=== PATIENT | female | born 1935 | race African-American/Black ===

== ENCOUNTER 2017-08-02 21:25 | Inpatient (IN) ==
[2017-08-02] MEDS ORDERED: LEVOFLOXACIN INJ 750 MG in PREMIX 1 EACH IV STA (22:35)
--- NOTE | 2017-08-02 22:35 | Emergency Department Note ---
Arrival - Arrival Chief Complaint: Fever Stated Complaint: AMS, SOB, Fever. ED Nursing Triage Note: C/O Fever/Altered LOC. Onset unknown- family saw pt last around 2200 lastnight- found her covered in feces, unable to get out of bed tonight around 2029- Family states they were unable to get in touch with her today. Pt is normally able to take care of her self without assistance Mode of Arrival: Stretcher Limitations: Altered Mental Status Source: Patient, Family Time Seen by Provider: 08/02/17 22:21 - History of Present Illness HPI Narrative: The family complains of altered mental status and confusion today. They last spoke to her yesterday and she sounded normal. When they were finally able to get in touch with her tonight, they found her incontinent, weak, unable to get out of bed, confused and lethargic. She is usually very active and takes care of herself. She lives alone. The family reports she has had a cough for a few days. No other known recent illness. The patient has a history of CLL and is taking chemotherapy. Her CODE STATUS is DNR. Allergies/Adverse Reactions: Allergies Allergy/AdvReac Type Severity Reaction Status Date / Time Penicillins Allergy ITCHING Verified 08/11/15 15:42 aspirin AdvReac ITCHING Verified 08/11/15 15:42 clarithromycin AdvReac Swelling Verified 08/12/15 09:21 of Lip/Tongue/Throat Home Medications: Home Medications Medication Instructions Recorded Confirmed Type Aspirin [Ecotrin] 81 mg PO DAILY 08/11/15 03/14/16 History Atorvastatin [Lipitor] 80 mg PO DAILY 08/11/15 03/14/16 History Docusate Sodium Cap [Colace Cap] 1 capsule PO DAILY 08/11/15 03/14/16 History Ezetimibe [Zetia] 10 mg PO DAILY 08/11/15 03/14/16 History Famotidine 40 mg PO BEDTIME 08/11/15 03/14/16 History Lisinopril 2.5 mg PO DAILY 08/11/15 03/14/16 History Losartan [Cozaar] 50 mg PO DAILY 08/11/15 03/14/16 History Metoprolol Tartrate Tab [Lopressor 25 mg PO DAILY 08/11/15 03/14/16 History Tab] Multivit-Min36/Iron/Folic Acid 1 each PO DAILY 08/11/15 03/14/16 History [Geritol Complete Tablet] Potassium Chloride [Klor-Con M20] 1 tablet PO DAILY 08/11/15 03/14/16 History Triamterene/Hydrochlorothiazid 1 each PO DAILY 08/11/15 03/14/16 History [Triamterene-Hctz 37.5-25 mg Cp] Review of System - Review of System ROS unobtainable: due to mental status - Review of System Constitutional: Present: fever, weakness Head/Ears/Nose/Throat: Absent: nasal drainage, sore throat Respiratory: Present: cough, respiratory distress Medical,Surgical,& Family Hx - Medical History Cardio: History of: CHF, CAD, Hypertension, Valvular Heart Disease (Mitral valve replacement 11/2013) Endocrine: History of: Dyslipidemia Rheumatology: History of;: Gout Respiratory: History of: Bronchitis, Intubation (11/2013 for MVR) Gastrointestinal: History of: GERD Hematology: History of: Anemia, Hematologic Cancer Other: History of: Cancer (cll taking chemo trtmts) - Surgical History Cardiac Surgeries: Sugical HX of: Cardiac Surgery (ANTONIO-Cx, MARIANA-RCA, SVG-LAD, Porcine 29mm AVR 12/03/2013 Dr. Huang) HEENT Surgeries: Surgical HX of: Tonsilectomy & Adenoidectomy Abdominal Surgeries: Surgical HX of: Appendectomy Reproductive Surgeries: Surgical HX of;: Hysterectomy Orthopedic Surgeries: Surgical HX of;: Total Knee Replacement (RIGHT KNEE) - Family History Family History: Reports;: Family Cancer (mother- pancreatic), Family Heart Disease (mother), Family Hypertension (mother), Family Stroke (mother) - Social History Smoking Status: Former smoker Frequency of Alcohol Use: None Type of Drug Use: None Exam Physical Examination: GENERAL: Alert. No acute distress. HEENT: Normocephalic and atraumatic. There is no nasal drainage. No pharyngeal erythema or exudate. Mucous membranes very dry with some dark material over the soft palate. NECK: Normal inspection. Supple. No lymphadenopathy or meningismus. LUNGS: Patient is tachypneic at 36. There are rales and wheezes bilaterally. HEART: Regular tachycardia at 120. ABDOMEN: Soft, nontender and nondistended with normoactive bowel sounds. BACK: Normal inspection. SKIN: Color normal. Warm and dry. EXTREMITIES: Nontender. Normal range of motion. Mild pitting edema to the lower tibias bilaterally. NEUROLOGICAL/PSYCHIATRIC: A little lethargic but easily arousable, responsive and cooperative. She is disoriented to day but oriented to place and person. She is occasionally confused by a command or question. Cranial nerves normal. No motor or sensory deficit. Vital Signs: Vital Signs Temperature 103.8 F H 08/02/17 21:25 Pulse Rate 129 H 08/02/17 23:14 Respiratory Rate 22 08/02/17 23:14 Blood Pressure 150/54 08/02/17 21:25 O2 Sat by Pulse Oximetry 100 08/02/17 23:14 Course - Reevaluation(s) Reevaluation #1: The patient has remained tachypneic here in the ER. She is still somewhat confused. I have given her Levaquin and am giving her fluids. She appears to be septic with a lactate of 7.3. The chest x-ray shows a pneumonia. She also has a mild urinary tract infection as well. I discussed the patient with Dr. Miller and will admit to him on the floor. They are to call him from the floor and he will give further orders. Time: 00:12 Results - Labs CBC & BMP: 08/02/17 21:42 08/02/17 21:42 Lab Results: I have reviewed the patients labs Labs: Laboratory Tests 08/02/17 08/02/17 21:42 22:13 Lactic Acid 7.3 H Total Bilirubin 1.50 H AST 89 H ALT 68 H Globulin 3.9 H Ur Specific [place] 1.016 Urine Leukocytes Trace Urine RBC 13 Urine WBC 49 Urine Bacteria Moderate - Impressions Chest x-ray shows a right lower lobe pneumonia. Disposition Clinical Impression: Pneumonia, Sepsis, UTI (urinary tract infection), Altered mental status, CLL ( chronic lymphocytic leukemia) Case discussed with: patient, patient's family Disposition: Still a Patient Condition: Guarded Time of Disposition: 00:14
[2017-08-02] MEDS ORDERED: ALBUTEROL/IPRATROPIUM 3 ML NEB RESP TX STA (22:41)
[2017-08-02 22:45] LABS: Basophils # 0.1 10*3/uL (0.0-0.2); Basophils % 0.1 % (0.0-0.8); Hematocrit 39.3 VOL% (35.7-47.0); Hemoglobin 12.4 GM/DL (12.0-16.0); Immature Granulocytes % 1.2 %; Immature Granulocytes Absolute 0.84 #; Lymphocytes # 62.3 10*3/uL (1.4-4.0); Lymphocytes % 90.5 % (21.3-54.2); Mean Corpuscular HGB Conc 31.6 GM/DL (32-36); Mean Corpuscular Hemoglobin 30 PG (27-34); Mean Corpuscular Volume 93.8 FL (87-102); Mean Platelet Volume 13.6 FL (9.6-12.0); Monocytes % 2.9 % (1.7-12.7); Neutrophils # 3.6 10*3/uL (1.4-7.4); Neutrophils % 5.3 % (38.7-73.9); Platelet Count 115 T/CUMM (130-400); Red Blood Count 4.19 MC/CUMM (3.8-5.5); Red Cell Distribution Width 13.6 % (9.3-17.3)
[2017-08-02 22:50] LABS: White Blood Count 68.8 T/CUMM (4-12)
[2017-08-02] MEDS ORDERED: LEVOFLOXACIN INJ 150 ML IV ONE (22:54)
[2017-08-02 22:58] LABS: Albumin 3.5 G/DL (3.4-5.0); Bilirubin,Total 1.5 MG/DL (0.2-1.0); Calcium 9.1 MG/DL (8.5-10.1); Lactic Acid 7.3 MMOL/L (0.4-2.0); Osmolality,Calculated 284.8 MOS/KG (273-304); Potassium 3.8 MMOL/L (3.5-5.1); Total Protein 7.4 G/DL (6.4-8.3)
[2017-08-02 23:26] LABS: Apearance,Urine Slightly Hazy (Clear); Bacteria,Urine Moderate /HPF (Few); Bilirubin,Urine Negative (Negative); Blood, Urine Moderate mg/dL (Negative); Glucose,Urine (UA) Negative (Negative); Ketones,Urine Negative (Negative); Mucus,Urine Occasional /LPF (Occasional); Nitrite,Urine Negative (Negative); Protein,Urine 100 MG/DL; RBC,Urine 13 /HPF (0-4); Urine Color Yellow (Yellow); Urine Specific Gravity 1.016 (1.001-1.035); Urine Urobilinogen < 2.0 EU/DL (0.2-1.0); WBC,Urine 49 /HPF (0-6)
[2017-08-03] MEDS ORDERED: SODIUM CHLORIDE 0.9% 1,000 ML IV STA
[2017-08-03] MEDS ORDERED: SODIUM CHLORIDE 0.9% 3,400 ML IV ONE (00:02)
[2017-08-03] MEDS ORDERED: ACETAMINOPHEN 500 MG TABLET PO STA (00:16)
[2017-08-03] MEDS ORDERED: LINEZOLID INJ 600 MG in PREMIX 1 EACH IV STA (00:36)
[2017-08-03] MEDS ORDERED: ACETAMINOPHEN 500 MG TABLET ONE (00:41)
[2017-08-03] MEDS ORDERED: ACETAMINOPHEN 325 MG/10.15 ML UDCUP ONE (00:55)
[2017-08-03] MEDS ORDERED: ACETAMINOPHEN 160 MG/5 ML UDCUP PO ONE (01:25)
[2017-08-03] MEDS ORDERED: MYLANTA/LIDO VISC 2:1 300 ML BOTTLE SWISH/SPIT PRN (01:48)
[2017-08-03] MEDS ORDERED: chlorproMAZINE 25 MG TABLET PO PRN (01:48)
[2017-08-03] MEDS ORDERED: diphenhydrAMINE CAP 25 MG CAPSULE PO PRN (01:48)
[2017-08-03] MEDS ORDERED: TEMAZEPAM 7.5 MG CAPSULE PO PRN (01:48)
[2017-08-03] MEDS ORDERED: traMADol 50 MG TABLET PO PRN (01:48)
[2017-08-03] MEDS ORDERED: ALUMINUM/MAGNES/SIMETH MAX STR 30 ML UDCUP PO PRN (01:48)
[2017-08-03] MEDS ORDERED: guaiFENesin 200 MG/10 ML UDCUP PO PRN (01:48)
[2017-08-03] MEDS ORDERED: LOPERAMIDE 2 MG CAPSULE PO PRN ×2 (01:48)
[2017-08-03] MEDS ORDERED: ACETAMINOPHEN 325 MG TABLET PO PRN (01:48)
[2017-08-03] MEDS ORDERED: MYLANTA/LIDO VISC 2:1 300 ML BOTTLE SWISH/SWAL PRN (01:48)
[2017-08-03] MEDS ORDERED: BENZTROPINE 2 MG/2 ML AMP IV PRN (01:48)
[2017-08-03] MEDS ORDERED: chlorproMAZINE INJ 25 MG in SODIUM CHLORIDE 0.9% 100 ML IV PRN (01:48)
[2017-08-03] MEDS ORDERED: LACTULOSE 20 GM/30 ML UDCUP PO PRN (01:48)
[2017-08-03] MEDS ORDERED: ONDANSETRON 4 MG/2 ML VIAL IV PRN (01:48)
[2017-08-03] MEDS ORDERED: MAGNESIUM HYDROXIDE SUSP 30 ML UDCUP PO PRN (01:48)
[2017-08-03] MEDS ORDERED: chlorproMAZINE INJ 50 MG in SODIUM CHLORIDE 0.9% 100 ML IV PRN (01:48)
[2017-08-03] MEDS ORDERED: ALPRAZolam 0.25 MG TABLET PO PRN (01:48)
[2017-08-03] MEDS ORDERED: PROMETHAZINE INJ 25 MG in SODIUM CHLORIDE 0.9% 50 ML IV PRN (01:48)
[2017-08-03 02:21] LABS: Basophils # 0.1 10*3/uL (0.0-0.2); Basophils % 0.1 % (0.0-0.8); Hematocrit 34.2 VOL% (35.7-47.0); Hemoglobin 11.2 GM/DL (12.0-16.0); Immature Granulocytes % 0.8 %; Immature Granulocytes Absolute 0.42 #; Lymphocytes # 48.1 10*3/uL (1.4-4.0); Lymphocytes % 91.4 % (21.3-54.2); Mean Corpuscular HGB Conc 32.7 GM/DL (32-36); Mean Corpuscular Hemoglobin 30 PG (27-34); Mean Corpuscular Volume 91.2 FL (87-102); Mean Platelet Volume 12.7 FL (9.6-12.0); Monocytes # 1.5 10*3/uL (0.11-0.8); Monocytes % 2.9 % (1.7-12.7); NRBC # 0.02 10*3/uL; Neutrophils # 2.5 10*3/uL (1.4-7.4); Neutrophils % 4.8 % (38.7-73.9); Platelet Count 100 T/CUMM (130-400); Red Blood Count 3.75 MC/CUMM (3.8-5.5); Red Cell Distribution Width 13.7 % (9.3-17.3)
[2017-08-03 02:24] LABS: White Blood Count 52.6 T/CUMM (4-12)
[2017-08-03 02:53] LABS: Calcium 8.5 MG/DL (8.5-10.1); Osmolality,Calculated 290.7 MOS/KG (273-304); Potassium 3.4 MMOL/L (3.5-5.1)
[2017-08-03 03:46] LABS: Lymphocytes 93 % (20-55); Platelet Estimate Adequate; Segmented Neutrophils 1 % (50-85); Smudge Cells Moderate; Total Cells Counted 100
[2017-08-03 03:53] LABS: Band Neutrophils 1 % (0-10); Lymphocytes 91 % (20-55); Segmented Neutrophils 2 % (50-85); Total Cells Counted 100
[2017-08-03 03:54] LABS: Atypical Lymphocytes Few; Platelet Estimate Adequate; Smudge Cells Moderate
--- NOTE | 2017-08-03 06:31 | XRay Report ---
XR chest 1V portable Indication: Cough and fever Comparison: 15 Mar 2016 Findings: The heart and mediastinum are stable in size and configuration with cardiac surgery changes. The pulmonary vascularity is normal in caliber. There is increased right lower lung density. No other lung infiltrates, effusions, pneumothorax or other abnormality is demonstrated. Impression: Increased right lower lung density, may indicate pneumonia. PROCEDURE INTERPRETED AT [facility] DEPARTMENT OF RADIOLOGY Final Report Signed by: Dr. Ric Sepulveda
--- NOTE | 2017-08-03 06:52 | EKG Report ---
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
--- NOTE | 2017-08-03 07:25 | Oncology History&Physical ---
History of Present Illness Chief complaint: Immunocompromised acute febrile illness History of present illness: Ms. Cyr is a 81 year old female with long-standing chronic lymphocytic leukemia who is admitted with an abrupt change in sensorium and fever and evidence to suggest that she is septic. Ms. Cyr is a 80 year old female who has long-standing chronic lymphocytic leukemia. She was actually initially diagnosed as having CLL in September 2004. It was CD20 positive. She has been treated with several different combinations of treatment. She's had Rituxan and bendamustine in the past and she is currently on Ibrutinib has been responding well to it. She went out to eat with her daughter earlier this week and had been doing well but when they had not heard from her for about 24 hours they went over to check on her and found her to be confused and prostrate. She has had serious infections in the past including one that produced lactic acidosis. She is immunocompromised by her chronic lymphocytic leukemia. Previous diagnoses have included #1: Acute metabolic acidosis with lactic acidosis secondary to acute gastroenteritis in combination with chemotherapy for chronic lymphocytic leukemia #2: Severe life-threatening hyperuricemia of greater than 20.0 on admission #3: Hypotensive crisis due to metabolic acidosis with shock #4 3/4: Hypoxemia due to metabolic acidosis and congestive heart failure #5: Chronic lymphocytic leukemia #6: Acute renal failure #7: Severe thrombocytopenia #8: Anemia #10: Artificial mitral valve #11: Coronary artery disease post-CABG #12: Haemophilus influenza septicemia Past medical history: Allergies: Penicillins, aspirin and clarithromycin. Degenerative arthritis GERD Artificial aortic valve Coronary artery disease Hypertension Congestive heart failure Myocardial infarct Renal failure Family history: Positive for stroke and hypertension in her mother. Social history: She does not use alcohol or tobacco. She actually used alcohol at one time but does not use it anymore. ROS Gen.: Eyes: Positive for excessive tearing no history of chronic disease, infections or visual loss. ENT: Positive for nasal congestion, nasal drainage, rhinitis, sneezing and snoring. No history of chronic infections, epistaxis, chronic sore throat Lungs: No history of asthma, emphysema, hemoptysis, chronic pleurisy or long- term or chronic infections Cardiovascular: Positive for edema and varicose veins. She also has a history of an artificial aortic valve replacement. No history of angina, coronary artery disease, congestive heart failure, cardiovascular surgery or DVT/VTE GI: Positive for hemorrhoids. No history of upper or lower GI bleeding, melena , dysphagia, odynophagia, liver disease, gallbladder disease or pancreatic disease. : No history of kidney stones, chronic kidney infections or hematuria. Musculoskeletal: Positive for arthritis, mainly degenerative arthritis but there may be a component of rheumatoid arthritis Neurologic: No history of seizures, convulsions or paralysis. Psychiatric: No history of chronic psychiatric illness or psychiatric medications. Lymphatic: No history of significant or long-term lymphadenopathy Hematologic: Positive for anemia and at times positive for neutropenia. Skin: Positive for hair loss. No history of chronic skin infections or rashes or significant skin lesions. Physical examination: General: The patient is acutely ill and lethargic. Eyes: Normal lids and conjunctivae. ENT: She is edentulous. Oral mucosa and pharynx are normal. Her trachea is midline. Her hearing appears normal. Lungs: She has scattered rales throughout both lung lucia and is tachypnea. There is no chest wall pain. Cardiovascular: Her heart rhythm is regular without gallop or rub. There is no jugular venous distention, clubbing or cyanosis. She has a harsh grade 4/6 holosystolic murmur heard best at the right upper sternal border. There is no clubbing or cyanosis. Abdomen: I palpate no abdominal masses, ascites or organomegaly. Musculoskeletal: She has degenerative arthritic changes of the hands. She has generalized muscle weakness. Neurologic: She has no focal neurologic deficit she is clearly very lethargic. Psychiatric: She is not completely oriented presently. She is acutely ill. Nodes: Although she has had extensive adenopathy in the past, I palpate no submandibular, cervical, supraclavicular or axillary adenopathy presently. Skin: No significant rashes or lesions. Impression: Sepsis in an immunocompromised patient: Long-standing chronic lymphocytic leukemia: Artificial aortic valve: Chronic and acute renal failure: History of thrombocytopenia: Bronchospasm and apparent pneumonia on this admission. See my orders. Home Medications Medication Instructions Recorded Confirmed Type Aspirin [Ecotrin] 81 mg PO DAILY 08/11/15 08/03/17 History Docusate Sodium Cap [Colace Cap] 1 capsule PO DAILY 08/11/15 08/03/17 History Ezetimibe [Zetia] 10 mg PO DAILY 08/11/15 08/03/17 History Losartan [Cozaar] 50 mg PO DAILY 08/11/15 08/03/17 History Metoprolol Tartrate Tab [Lopressor 25 mg PO DAILY 08/11/15 08/03/17 History Tab] Potassium Chloride [Klor-Con M20] 1 tablet PO DAILY 08/11/15 08/03/17 History Bumetanide Tab [Bumex Tab] 1 mg PO DAILY 08/03/17 08/03/17 History Fexofenadine/Pseudoephedrine 1 each PO DAILY 08/03/17 08/03/17 History [Aminta-D 24 Hour Tablet] Ibrutinib [Imbruvica] 140 mg PO DAILY 08/03/17 08/03/17 History Magnesium Chloride [Slow Mag] 64 mg PO DAILY 08/03/17 08/03/17 History Multivit-Min36/Iron/Folic Acid 1 tablet PO DAILY 08/03/17 08/03/17 History [Geritol Complete Tablet] Allergies Allergy/AdvReac Type Severity Reaction Status Date / Time Penicillins Allergy ITCHING Verified 08/11/15 15:42 aspirin AdvReac ITCHING Verified 08/11/15 15:42 clarithromycin AdvReac Swelling Verified 08/12/15 09:21 of Lip/Tongue/Throat Medical,Surgical,& Family Hx - Medical History Cardio: History of: CHF, CAD, Hypertension, Valvular Heart Disease (Mitral valve replacement 11/2013) Endocrine: History of: Dyslipidemia Rheumatology: History of;: Gout Respiratory: History of: Bronchitis, Intubation (11/2013 for MVR) Gastrointestinal: History of: GERD Hematology: History of: Anemia, Hematologic Cancer Other: History of: Cancer (cll taking chemo trtmts) - Surgical History Cardiac Surgeries: Sugical HX of: Cardiac Surgery (ANTONIO-Cx, MARIANA-RCA, SVG-LAD, Porcine 29mm AVR 12/03/2013 Dr. Huang) HEENT Surgeries: Surgical HX of: Tonsilectomy & Adenoidectomy Abdominal Surgeries: Surgical HX of: Appendectomy Reproductive Surgeries: Surgical HX of;: Hysterectomy Orthopedic Surgeries: Surgical HX of;: Total Knee Replacement (RIGHT KNEE) - Family History Family History: Reports;: Family Cancer (mother- pancreatic), Family Heart Disease (mother), Family Hypertension (mother), Family Stroke (mother) - Social History Smoking Status: Former smoker Frequency of Alcohol Use: None Type of Drug Use: None Exam - Constitutional Vitals: Period Temp Pulse Resp BP Sys/Gray Pulse Ox Last 24 Hr 96.8 F-103.8 F 120-132 20-36 108-150/54-54 95-100 Results - Labs CBC & BMP: 08/04/17 08:33 08/04/17 08:33
[2017-08-03 08:43] LABS: Total Protein 5.7 G/DL (6.4-8.3)
--- NOTE | 2017-08-03 08:57 | Pulmonology Consult Note ---
Assessment and Plan (1) Altered mental status Status: Acute Assessment and plan: The patient comes in with delirium related to her new pneumonia and fever and is likely septic. Current Visit: Yes (2) Pneumonia Status: Acute Assessment and plan: The patient does have an acute right lower lobe pneumonia. She is somewhat immunosuppressed and will be covered with broad-spectrum antibiotics. Current Visit: Yes (3) Sepsis Status: Acute Assessment and plan: The patient comes in with sepsis and has gotten a large volume of fluid. We will have to watch for volume overload. Current Visit: Yes (4) CLL (chronic lymphocytic leukemia) Status: Chronic Assessment and plan: Patient has been getting chronic treatment for her CLL. Current Visit: Yes (5) Renal insufficiency Status: Acute Assessment and plan: Her creatinine is 2.2 at present. Current Visit: No (6) S/P AVR (aortic valve replacement) Status: Chronic Assessment and plan: The patient has had previous aortic valve replacement. Current Visit: No (7) S/P MVR (mitral valve replacement) Status: Chronic Assessment and plan: Patient has had a previous mitral valve replacement. Current Visit: No History of Present Illness Chief complaint: Shortness of breath History of present illness: Ms. Cyr is a 81 year old black female that has a long history of CLL but is been quite active and been doing reasonably well until this past week. She started having a little bit of cough and congestion and yesterday apparently she was very confused and had a high fever. She came in with basically delirium and was very short of breath. She now has a right lower lobe pneumonia. She was felt to be somewhat septic and has been started on fluids and antibiotics. She is quite tachypneic and little confused. She has chronically been on treatment for CLL. She has had an aortic valve replacement. She apparently has had some loose stools also. She has adequate oxygenation at present but is having a temperature to 102.8. Home Medications Medication Instructions Recorded Confirmed Type Aspirin [Ecotrin] 81 mg PO DAILY 08/11/15 08/03/17 History Docusate Sodium Cap [Colace Cap] 1 capsule PO DAILY 08/11/15 08/03/17 History Ezetimibe [Zetia] 10 mg PO DAILY 08/11/15 08/03/17 History Losartan [Cozaar] 50 mg PO DAILY 08/11/15 08/03/17 History Metoprolol Tartrate Tab [Lopressor 25 mg PO DAILY 08/11/15 08/03/17 History Tab] Potassium Chloride [Klor-Con M20] 1 tablet PO DAILY 08/11/15 08/03/17 History Bumetanide Tab [Bumex Tab] 1 mg PO DAILY 08/03/17 08/03/17 History Fexofenadine/Pseudoephedrine 1 each PO DAILY 08/03/17 08/03/17 History [Aminta-D 24 Hour Tablet] Ibrutinib [Imbruvica] 140 mg PO DAILY 08/03/17 08/03/17 History Magnesium Chloride [Slow Mag] 64 mg PO DAILY 08/03/17 08/03/17 History Multivit-Min36/Iron/Folic Acid 1 tablet PO DAILY 08/03/17 08/03/17 History [Geritol Complete Tablet] Allergies Allergy/AdvReac Type Severity Reaction Status Date / Time Penicillins Allergy ITCHING Verified 08/11/15 15:42 aspirin AdvReac ITCHING Verified 08/11/15 15:42 clarithromycin AdvReac Swelling Verified 08/12/15 09:21 of Lip/Tongue/Throat - Constitutional Constitutional: Present: chills, fever(s), weakness - EENT Eyes: Absent: loss of vision Ears: Absent: decreased hearing Nose, mouth and throat: Absent: headache(s), sinus pressure - Cardiovascular Cardiovascular: Present: dyspnea. Absent: chest pain at rest - Respiratory Respiratory: Present: cough, dyspnea, change in phlegm color - Gastrointestinal Gastrointestinal: Present: diarrhea - Genitourinary Genitourinary: Absent: difficulty urinating, hematuria - Neurological Neurological: Present: confusion Exam (Pulmonay) H&P - Constitutional Vitals: Period Temp Pulse Resp BP Sys/Gray Pulse Ox Last 24 Hr 96.8 F-103.8 F 120-132 20-36 108-150/54-54 95-100 General appearance: mild distress, over weight, other (She is tachypneic but has stable vital signs.) - Head Head exam: Present: normal inspection, normocephalic - Eye Eye exam: Present: EOMI. Absent: scleral icterus Pupils: Present: [place] - ENT ENT exam: Present: normal exam - Neck Neck exam: Absent: lymphadenopathy, thyromegaly - Respiratory Respiratory exam: Present: accessory muscle use, rales, other (She has good breath sounds bilaterally). Absent: wheezes - Cardiovascular Cardiovascular exam: Present: regular rate and rhythm, tachycardia. Absent: gallop, systolic murmur - GI/Abdominal GI/Abdominal exam: Present: soft. Absent: distended, organomegaly, tenderness - Extremities Exam Extremities exam: Absent: calf tenderness, edema - Neurological Exam Neurological exam: Present: altered (She is somewhat confused now.) - Psychiatric Psychiatric exam: Present: normal affect - Skin Skin exam: Present: warm, dry Medical,Surgical,& Family Hx - Medical History Cardio: History of: CHF, CAD, Hypertension, Valvular Heart Disease (Mitral valve replacement 11/2013) Endocrine: History of: Dyslipidemia Rheumatology: History of;: Gout Respiratory: History of: Bronchitis, Intubation (11/2013 for MVR) Gastrointestinal: History of: GERD Hematology: History of: Anemia, Hematologic Cancer Other: History of: Cancer (cll taking chemo trtmts) - Surgical History Cardiac Surgeries: Sugical HX of: Cardiac Surgery (ANTONIO-Cx, MARIANA-RCA, SVG-LAD, Porcine 29mm AVR 12/03/2013 Dr. Huang) HEENT Surgeries: Surgical HX of: Tonsilectomy & Adenoidectomy Abdominal Surgeries: Surgical HX of: Appendectomy Reproductive Surgeries: Surgical HX of;: Hysterectomy Orthopedic Surgeries: Surgical HX of;: Total Knee Replacement (RIGHT KNEE) - Family History Family History: Reports;: Family Cancer (mother- pancreatic), Family Heart Disease (mother), Family Hypertension (mother), Family Stroke (mother) - Social History Smoking Status: Former smoker Frequency of Alcohol Use: None Type of Drug Use: None Results - Labs CBC & BMP: 08/03/17 02:09 08/03/17 02:09 - Diagnostic Findings Procedure: Chest x-ray: image reviewed by me, report reviewed by me (Chest x- ray shows cardiomegaly but does have a right lower lobe consolidation.)
[2017-08-03] MEDS: methylPREDNISolone SOD SUC 40 MG/1 ML VIAL IV SCH ×2 (09:05→17:57)
[2017-08-03] MEDS: LEVOFLOXACIN INJ 750 MG in PREMIX 1 EACH IV SCH (09:35)
[2017-08-03 10:33] LABS: Immunoglobulin A (Chem) 56 MG/DL (70-400); Immunoglobulin G (Chem) 326 MG/DL (700-1600); Total Protein (Chem) 5.7 G/DL (6.4-8.3)
[2017-08-03 10:34] LABS: Immunoglobulin M (Chem) 65 MG/DL (40-230)
[2017-08-03] MEDS: LINEZOLID INJ 600 MG in PREMIX 1 EACH IV SCH (11:34)
[2017-08-03] MEDS: DOCUSATE SODIUM 100 MG CAPSULE PO SCH (11:38)
[2017-08-03] MEDS: ASPIRIN EC 81 MG TABLET PO SCH (11:38)
[2017-08-03] MEDS: EZETIMIBE 10 MG TABLET PO SCH (11:39)
[2017-08-03] MEDS: ZINC OXIDE PASTE 113 GM TUBE TOP SCH ×2 (11:39→22:28)
[2017-08-03] MEDS: MAGNESIUM CHLORIDE 64 MG TABLET PO SCH (11:39)
[2017-08-03] MEDS: METOPROLOL TARTRATE 25 MG TABLET PO SCH (11:39)
[2017-08-03] MEDS: POTASSIUM CHLORIDE 20 MEQ TABLET PO SCH (11:39)
[2017-08-03] MEDS: ALBUTEROL 1.25 MG/3 ML NEB RESP TX SCH ×2 (13:02→20:02)
[2017-08-03] MEDS: SODIUM CHLORIDE 0.9% 1,000 ML IV SCH ×2 (15:03→20:29)
[2017-08-04] MEDS: LINEZOLID INJ 600 MG in PREMIX 1 EACH IV SCH ×2 (00:37→11:32)
[2017-08-04] MEDS: ALBUTEROL 1.25 MG/3 ML NEB RESP TX SCH ×4 (01:54→20:25)
[2017-08-04] MEDS: methylPREDNISolone SOD SUC 40 MG/1 ML VIAL IV SCH ×3 (02:32→16:42)
[2017-08-04 06:18] LABS: Immuno Free Light Chain Kappa 1.13 MG/DL (0.33-1.94); Immuno Free Light Chain Lambda 1.57 MG/DL (0.57-2.63); Immuno Free Light Chain Ratio 0.72 MG/DL (0.26-1.65)
[2017-08-04 06:50] LABS: Albumin (SPE) 3.7 G/DL (3.2-5.3); Albumin (SPE) Rel % 65.1 %; Alpha 1 (SPE) 0.3 G/DL (0.1-0.4); Alpha 2 (SPE) 0.7 G/DL (0.4-1.0); Alpha 2 (SPE) Rel % 12.4 %; Beta (SPE) 0.7 G/DL (0.5-1.1); Beta (SPE) Rel % 11.6 %; Gamma (SPE) 0.3 G/DL (0.7-1.7)
[2017-08-04 06:52] LABS: Gamma (SPE) Rel % 5.9 %
--- NOTE | 2017-08-04 07:45 | XRay Report ---
Exam: XR chest 1V portable Date: 08/04/2017 4:00 AM Indication: Pneumonia Comparison: August 02, 2017 Technical: AP Findings: Cardiomegaly is present previous sternotomy and valve replacement surgery. Low volume effusions atelectatic changes are present bilaterally right greater than left. No pneumothorax. A necklace Superimposes exam. Impression: 1. Persistent bibasilar infiltrates atelectatic change and effusions with underlying cardiomegaly and previous sternotomy and valve replacement surgery. Overall slight worsening of findings in the right base PROCEDURE INTERPRETED AT [facility] DEPARTMENT OF RADIOLOGY Final Report Signed by: Dr. Esequiel Quevedo
--- NOTE | 2017-08-04 08:27 | Oncology Progress Note ---
Oncology Subjective PN Interval history: Patient with CLL and gram-positive septicemia. She has been afebrile since yesterday morning around 9 AM. She is on Zyvox and Levaquin. I will plan to continue both medications today and consider whether or not to continue both medications once we have the final identification of the bacteria back. She is only Imbruvica which we will resume today. Lab work today includes a white cell count of 28,200 with an absolute neutrophil count of 2100. Her hemoglobin is 9.8. Her platelet count is 66, 000. The chemistry package is still pending and I may adjust her fluids and other medicines accordingly. Today she is far more alert and oriented and animated and she appears to be improving now. She is on IV fluids as well as IV antibiotics. She has additives and her IV fluids require monitoring as well. See my orders. Her oral mucosa and pharynx are normal. Her trachea is midline and she has no neck masses. Lungs are clear without rubs, rales or rhonchi. Her heart rhythm is regular without murmur, gallop or rub. She has short-term memory loss but otherwise is oriented. Exam - Constitutional Vitals: Period Temp Pulse Resp BP Sys/Gray Pulse Ox Last 24 Hr 97.2 F-102.8 F 104-140 17-32 94-145/50-67 92-99 Results - Labs CBC & BMP: 08/04/17 08:33 08/03/17 02:09
[2017-08-04 09:13] LABS: Basophils % 0.1 % (0.0-0.8); Hematocrit 30.5 VOL% (35.7-47.0); Hemoglobin 9.8 GM/DL (12.0-16.0); Immature Granulocytes % 0.5 %; Immature Granulocytes Absolute 0.14 #; Lymphocytes # 25.4 10*3/uL (1.4-4.0); Lymphocytes % 89.9 % (21.3-54.2); Mean Corpuscular HGB Conc 32.1 GM/DL (32-36); Mean Corpuscular Hemoglobin 30 PG (27-34); Mean Corpuscular Volume 92.4 FL (87-102); Mean Platelet Volume 13.6 FL (9.6-12.0); Monocytes # 0.6 10*3/uL (0.11-0.8); Neutrophils # 2.1 10*3/uL (1.4-7.4); Neutrophils % 7.5 % (38.7-73.9); White Blood Count 28.2 T/CUMM (4-12)
[2017-08-04 09:16] LABS: Platelet Count 66 T/CUMM (130-400)
[2017-08-04 09:40] LABS: Albumin 2.5 G/DL (3.4-5.0); Bilirubin,Total 1.2 MG/DL (0.2-1.0); Calcium 8.2 MG/DL (8.5-10.1); Magnesium 2.1 MG/DL (1.8-2.4); Osmolality,Calculated 299.3 MOS/KG (273-304); Potassium 3.8 MMOL/L (3.5-5.1)
[2017-08-04 09:55] LABS: Lymphocytes 94 % (20-55); Segmented Neutrophils 5 % (50-85); Total Cells Counted 100
[2017-08-04 09:56] LABS: Atypical Lymphocytes Few; Microcytosis Slight
[2017-08-04 09:57] LABS: Burr Cells Slight
[2017-08-04 09:58] LABS: Hypochromasia Slight; Platelet Estimate Decreased
[2017-08-04] MEDS: POTASSIUM CHLORIDE 20 MEQ TABLET PO SCH (10:11)
[2017-08-04] MEDS: FEXOFENADINE 180 MG TABLET PO SCH (10:12)
[2017-08-04] MEDS: METOPROLOL TARTRATE 25 MG TABLET PO SCH (10:12)
[2017-08-04] MEDS: BUMETANIDE 1 MG TABLET PO SCH (10:12)
[2017-08-04] MEDS: MULTIVITAMIN (CENTRUM) TABLET PO SCH (10:12)
[2017-08-04] MEDS: EZETIMIBE 10 MG TABLET PO SCH (10:12)
[2017-08-04] MEDS: MAGNESIUM CHLORIDE 64 MG TABLET PO SCH (10:12)
[2017-08-04] MEDS: ASPIRIN EC 81 MG TABLET PO SCH (10:12)
[2017-08-04] MEDS: LOSARTAN 50 MG TABLET PO SCH (10:12)
[2017-08-04] MEDS: DOCUSATE SODIUM 100 MG CAPSULE PO SCH (10:12)
[2017-08-04] MEDS: IMBRUVICA 140 MG PO SCH (10:14)
[2017-08-04] MEDS: DEXT 5% NACL 0.45% KCL 20 MEQ 20 MEQ/1,000 ML BAG IV SCH ×2 (10:15→21:17)
[2017-08-04] MEDS: ZINC OXIDE PASTE 113 GM TUBE TOP SCH ×2 (10:17→21:18)
[2017-08-04] MEDS: SODIUM CHLORIDE 0.9% 1,000 ML IV SCH (10:21)
--- NOTE | 2017-08-04 16:11 | Pulmonology Progress Note ---
Pulmonary - PN: Subj Interval history: The patient is an 81-year-old black lady with CLL she comes in with a septic picture and right lower lobe pneumonia. She has been given antibiotics and fluids and is much better today. She is more alert and conversant. She feels like her breathing and her chest feels better. She is eating a little better today. She does have positive blood cultures is getting covered with broad- spectrum antibiotics. Her renal function is better with a creatinine of 1.9. Exam (Progress Note) - Constitutional Vitals: Period Temp Pulse Resp BP Sys/Gray Pulse Ox Last 24 Hr 97.2 F-98.9 F 89-127 17-20 97-123/51-59 94-99 Exam: General appearance: mild distress, over weight, other (She is much more comfortable and less tachypneic today.) - Head Head exam: Present: normal inspection, normocephalic - Eye Eye exam: Present: EOMI. Absent: scleral icterus Pupils: Present: [place] - ENT ENT exam: Present: normal exam - Neck Neck exam: Absent: lymphadenopathy, thyromegaly - Respiratory Respiratory exam: Present: Patient has good breath sounds with some slight crackles in the bases. - Cardiovascular Cardiovascular exam: Present: regular rate and rhythm, tachycardia. Absent: gallop, systolic murmur - GI/Abdominal GI/Abdominal exam: Present: soft. Absent: distended, organomegaly, tenderness - Extremities Exam Extremities exam: Absent: calf tenderness, edema, no leg tenderness. - Neurological Exam Neurological exam: Present: altered (She is much more alert.) - Psychiatric Psychiatric exam: Present: normal affect - Skin Skin exam: Present: warm, dry Results - Labs CBC & BMP: 08/04/17 08:33 08/04/17 08:33 Labs: Blood cultures have gram-positive cocci. - Diagnostic Findings Procedure: Chest x-ray: image reviewed by me, report reviewed by me (Chest x- ray still shows some right lower lobe consolidation.) Assessment and Plan (1) Altered mental status Status: Acute Assessment and plan: The patient comes in with delirium related to her new pneumonia and fever and is likely septic. She does have positive blood cultures. She is doing much better today. Current Visit: Yes (2) Pneumonia Status: Acute Assessment and plan: The patient does have an acute right lower lobe pneumonia. She is somewhat immunosuppressed and will be covered with broad-spectrum antibiotics. Current Visit: Yes (3) Sepsis Status: Acute Assessment and plan: The patient comes in with sepsis and has gotten a large volume of fluid. She looks better today and appears to be hemodynamically stable. Current Visit: Yes (4) CLL (chronic lymphocytic leukemia) Status: Chronic Assessment and plan: Patient has been getting chronic treatment for her CLL. Current Visit: Yes (5) Renal insufficiency Status: Acute Assessment and plan: Her creatinine is 1.9 now . Current Visit: No (6) S/P AVR (aortic valve replacement) Status: Chronic Assessment and plan: The patient has had previous aortic valve replacement. Current Visit: No (7) S/P MVR (mitral valve replacement) Status: Chronic Assessment and plan: Patient has had a previous mitral valve replacement. Will watch for heart failure. Current Visit: No
[2017-08-05] MEDS: LINEZOLID INJ 600 MG in PREMIX 1 EACH IV SCH ×2 (00:12→11:59)
[2017-08-05] MEDS: ALBUTEROL 1.25 MG/3 ML NEB RESP TX SCH ×4 (01:31→20:11)
[2017-08-05] MEDS: methylPREDNISolone SOD SUC 40 MG/1 ML VIAL IV SCH ×3 (01:42→20:54)
[2017-08-05 04:58] LABS: Basophils % 0.1 % (0.0-0.8); Hematocrit 27.8 VOL% (35.7-47.0); Hemoglobin 8.7 GM/DL (12.0-16.0); Immature Granulocytes % 0.9 %; Immature Granulocytes Absolute 0.28 #; Lymphocytes # 27.4 10*3/uL (1.4-4.0); Lymphocytes % 90.7 % (21.3-54.2); Mean Corpuscular HGB Conc 31.3 GM/DL (32-36); Mean Corpuscular Hemoglobin 29 PG (27-34); Mean Platelet Volume 13.4 FL (9.6-12.0); Monocytes # 0.5 10*3/uL (0.11-0.8); Monocytes % 1.6 % (1.7-12.7); Neutrophils % 6.7 % (38.7-73.9); Red Blood Count 2.99 MC/CUMM (3.8-5.5); Red Cell Distribution Width 14.2 % (9.3-17.3); White Blood Count 30.2 T/CUMM (4-12)
[2017-08-05 05:10] LABS: Platelet Count 62 T/CUMM (130-400)
[2017-08-05 05:33] LABS: Albumin 2.4 G/DL (3.4-5.0); Bilirubin,Total 1.5 MG/DL (0.2-1.0); Calcium 7.8 MG/DL (8.5-10.1); Osmolality,Calculated 301.4 MOS/KG (273-304); Potassium 4.3 MMOL/L (3.5-5.1); Total Protein 4.7 G/DL (6.4-8.3)
[2017-08-05 06:20] LABS: Atypical Lymphocytes Few; Burr Cells Slight; Giant Platelets Few; Hypochromasia Slight; Lymphocytes 97 % (20-55); Microcytosis Slight; Platelet Estimate Decreased; Segmented Neutrophils 3 % (50-85); Smudge Cells Few; Total Cells Counted 100
[2017-08-05] MEDS: DEXT 5% NACL 0.45% KCL 20 MEQ 20 MEQ/1,000 ML BAG IV SCH (07:32)
[2017-08-05] MEDS: POTASSIUM CHLORIDE 20 MEQ TABLET PO SCH (09:00)
[2017-08-05] MEDS: IMBRUVICA 140 MG PO SCH (09:02)
[2017-08-05] MEDS: PSEUDOEPHEDRINE 30 MG TABLET PO SCH ×3 (09:04→21:24)
[2017-08-05] MEDS: BUMETANIDE 1 MG TABLET PO SCH (09:04)
[2017-08-05] MEDS: EZETIMIBE 10 MG TABLET PO SCH (09:05)
[2017-08-05] MEDS: DOCUSATE SODIUM 100 MG CAPSULE PO SCH (09:05)
[2017-08-05] MEDS: ASPIRIN EC 81 MG TABLET PO SCH (09:05)
[2017-08-05] MEDS: MAGNESIUM CHLORIDE 64 MG TABLET PO SCH (09:06)
[2017-08-05] MEDS: FEXOFENADINE 180 MG TABLET PO SCH (09:06)
[2017-08-05] MEDS: MULTIVITAMIN (CENTRUM) TABLET PO SCH (09:07)
--- NOTE | 2017-08-05 09:07 | Oncology Progress Note ---
Oncology Subjective PN Interval history: Gram-positive septicemia Ms. Cyr is an immunosuppressed patient admitted with gram-positive septicemia and history of chronic lymphocytic leukemia currently off IV medications but she is still on Imbruvica for her leukemia. She has been responding well. She was found unresponsive in her home and brought to the hospital. This is at least the second time this has happened. She is improving now and is oriented and alert. Blood cultures are positive for gram-positive cocci but they have not been identified any further at this time.Urine cultures positive for gram-negative rods. However, colony count is only 5000. Chronic lymphocytic leukemia: White cell count 30,200 with absolute neutrophil count of 2000 Anemia: Hemoglobin 8.7 Thrombocytopenia: Platelet count 62,000. She is on Zyvox which can worsen thrombocytopenia so I will be watching this closely. Chronic renal failure Serum creatinine is down to 1.7 Exam - Constitutional Vitals: Period Temp Pulse Resp BP Sys/Gray Pulse Ox Last 24 Hr 96.4 F-98.9 F 75-98 17-20 94-124/49-63 96-100 Results - Labs CBC & BMP: 08/05/17 03:19 08/05/17 03:19
[2017-08-05] MEDS: ZINC OXIDE PASTE 113 GM TUBE TOP SCH ×2 (09:10→22:22)
[2017-08-05] MEDS: LEVOFLOXACIN INJ 750 MG in PREMIX 1 EACH IV SCH (10:44)
[2017-08-05] MEDS: METOPROLOL TARTRATE 25 MG TABLET PO SCH (12:54)
[2017-08-05] MEDS: LOSARTAN 50 MG TABLET PO SCH (12:54)
--- NOTE | 2017-08-05 13:01 | Pulmonology Progress Note ---
Pulmonary - PN: Subj Interval history: The patient is an 81-year-old black lady with CLL she comes in with a septic picture and right lower lobe pneumonia. She has been given antibiotics and fluids and is much better today. She is more alert and conversant. She feels like her breathing and her chest feels better. She is eating a little better today. She does have positive blood cultures is getting covered with broad- spectrum antibiotics. She says she had a very good night and is feeling much better. She is getting around a little better. She is not short of breath now. She is not having any fever. She is eating and drinking well. Overall she is feeling much better. Exam (Progress Note) - Constitutional Vitals: Period Temp Pulse Resp BP Sys/Gray Pulse Ox Last 24 Hr 96.4 F-98.9 F 75-98 17-20 94-124/49-63 96-100 Exam: General appearance: no distress, over weight, other (She is much more comfortable and less tachypneic today. She is ambulating better.) - Head Head exam: Present: normal inspection, normocephalic - Eye Eye exam: Present: EOMI. Absent: scleral icterus Pupils: Present: [place] - ENT ENT exam: Present: normal exam - Neck Neck exam: Absent: lymphadenopathy, thyromegaly - Respiratory Respiratory exam: Present: Patient has good breath sounds with some slight crackles in the bases. She has no wheezing. - Cardiovascular Cardiovascular exam: Present: regular rate and rhythm, tachycardia. Absent: gallop, systolic murmur - GI/Abdominal GI/Abdominal exam: Present: soft. Absent: distended, organomegaly, tenderness - Extremities Exam Extremities exam: Absent: calf tenderness, edema, no leg tenderness. - Neurological Exam Neurological exam: Present: altered (She is much more alert.) - Psychiatric Psychiatric exam: Present: normal affect - Skin Skin exam: Present: warm, dry Results - Labs CBC & BMP: 08/05/17 03:19 08/05/17 03:19 Assessment and Plan (1) Altered mental status Status: Acute Assessment and plan: The patient comes in with delirium related to her new pneumonia and fever and is likely septic. She does have positive blood cultures. She is doing much better today. Her mental status is back to normal. Current Visit: Yes (2) Pneumonia Status: Acute Assessment and plan: The patient does have an acute right lower lobe pneumonia. She is somewhat immunosuppressed and will be covered with broad-spectrum antibiotics. Clinically she looks like she is doing better. Current Visit: Yes (3) Sepsis Status: Acute Assessment and plan: The patient comes in with sepsis and has gotten a large volume of fluid. She looks better today and appears to be hemodynamically stable. Current Visit: Yes (4) CLL (chronic lymphocytic leukemia) Status: Chronic Assessment and plan: Patient has been getting chronic treatment for her CLL. Current Visit: Yes (5) Renal insufficiency Status: Acute Assessment and plan: Her creatinine is 1.7 now . Current Visit: No (6) S/P AVR (aortic valve replacement) Status: Chronic Assessment and plan: The patient has had previous aortic valve replacement. Current Visit: No (7) S/P MVR (mitral valve replacement) Status: Chronic Assessment and plan: Patient has had a previous mitral valve replacement. Will watch for heart failure. I will stop her IV fluids now. Current Visit: No
[2017-08-06] MEDS: ALBUTEROL 1.25 MG/3 ML NEB RESP TX SCH ×4 (00:47→19:07)
[2017-08-06] MEDS: methylPREDNISolone SOD SUC 40 MG/1 ML VIAL IV SCH ×2 (01:09→10:27)
[2017-08-06] MEDS: PSEUDOEPHEDRINE 30 MG TABLET PO SCH ×4 (04:18→21:59)
[2017-08-06 05:36] LABS: Basophils # 0.1 10*3/uL (0.0-0.2); Basophils % 0.1 % (0.0-0.8); Hematocrit 29.1 VOL% (35.7-47.0); Hemoglobin 9.2 GM/DL (12.0-16.0); Immature Granulocytes Absolute 0.37 #; Lymphocytes # 32.8 10*3/uL (1.4-4.0); Lymphocytes % 92.8 % (21.3-54.2); Mean Corpuscular HGB Conc 31.6 GM/DL (32-36); Mean Corpuscular Hemoglobin 29 PG (27-34); Mean Platelet Volume 14.1 FL (9.6-12.0); Monocytes # 0.4 10*3/uL (0.11-0.8); Monocytes % 1.2 % (1.7-12.7); NRBC # 0.02 10*3/uL; Neutrophils # 1.7 10*3/uL (1.4-7.4); Neutrophils % 4.9 % (38.7-73.9); Platelet Count 67 T/CUMM (130-400); Red Blood Count 3.13 MC/CUMM (3.8-5.5); Red Cell Distribution Width 14.5 % (9.3-17.3); White Blood Count 35.3 T/CUMM (4-12)
[2017-08-06 06:11] LABS: Atypical Lymphocytes Few; Hypochromasia Slight; Lymphocytes 98 % (20-55); Microcytosis Slight; Platelet Estimate Decreased; Segmented Neutrophils 2 % (50-85); Smudge Cells Few; Total Cells Counted 100
[2017-08-06 06:12] LABS: Giant Platelets Few
[2017-08-06 06:21] LABS: Albumin 2.4 G/DL (3.4-5.0); Bilirubin,Total 0.9 MG/DL (0.2-1.0); Calcium 8.3 MG/DL (8.5-10.1); Osmolality,Calculated 299.4 MOS/KG (273-304); Potassium 4.6 MMOL/L (3.5-5.1); Total Protein 4.9 G/DL (6.4-8.3)
--- NOTE | 2017-08-06 09:26 | Oncology Progress Note ---
Oncology Subjective PN Interval history: Gram-positive septicemia Ms. Cyr is an immunosuppressed patient admitted with gram-positive septicemia and history of chronic lymphocytic leukemia currently off IV medications but she is still on Imbruvica for her leukemia. She has been responding well. She was found unresponsive in her home and brought to the hospital. This is at least the second time this has happened. She is improving now and is oriented and alert.Blood cultures were reported back as being positive several days ago but the identification of the bacteria was not placed on the chart until the afternoon August 06, 2017. The patient has Streptococcus pneumoniae on 2 blood cultures. It is broadly sensitive. She also has Acinetobacter on urine culture but the colony count is very low. White cell count 30,200 with absolute neutrophil count of 2000 Anemia: Hemoglobin 9.2 today. Thrombocytopenia: Platelet count 67,000 and rising. We discontinued Zyvox yesterday. Chronic renal failure Serum creatinine is 1.4 and falling Exam - Constitutional Vitals: Period Temp Pulse Resp BP Sys/Gray Pulse Ox Last 24 Hr 97 F-98.3 F 51-100 16-20 105-136/55-66 96-99 Results - Labs CBC & BMP: 08/06/17 04:39 08/06/17 04:40
[2017-08-06] MEDS: BUMETANIDE 1 MG TABLET PO SCH (09:42)
[2017-08-06] MEDS: LOSARTAN 50 MG TABLET PO SCH (09:42)
[2017-08-06] MEDS: METOPROLOL TARTRATE 25 MG TABLET PO SCH (09:43)
[2017-08-06] MEDS: EZETIMIBE 10 MG TABLET PO SCH (09:43)
[2017-08-06] MEDS: ASPIRIN EC 81 MG TABLET PO SCH (09:44)
[2017-08-06] MEDS: FEXOFENADINE 180 MG TABLET PO SCH (09:44)
[2017-08-06] MEDS: MULTIVITAMIN (CENTRUM) TABLET PO SCH (09:45)
[2017-08-06] MEDS: POTASSIUM CHLORIDE 20 MEQ TABLET PO SCH (09:47)
[2017-08-06] MEDS: MAGNESIUM CHLORIDE 64 MG TABLET PO SCH (09:48)
[2017-08-06] MEDS: IMBRUVICA 140 MG PO SCH (09:49)
[2017-08-06] MEDS ORDERED: LEVOFLOXACIN INJ 750 MG in PREMIX 1 EACH IV SCH (10:00)
[2017-08-06] MEDS: DOCUSATE SODIUM 100 MG CAPSULE PO SCH (10:24)
[2017-08-06] MEDS: ZINC OXIDE PASTE 113 GM TUBE TOP SCH ×2 (10:24→22:07)
--- NOTE | 2017-08-06 11:29 | Pulmonology Progress Note ---
Pulmonary - PN: Subj Interval history: The patient is an 81-year-old black lady with CLL she comes in with a septic picture and right lower lobe pneumonia. She has been given antibiotics and fluids and is much better today. She is up and moving around and looks much better. She says she is eating and feels stronger. Her shortness of breath is much better. She did have a Streptococcus pneumoniae grow out on blood cultures. She is getting antibiotics. Clinically she is much improved. Exam (Progress Note) - Constitutional Vitals: Period Temp Pulse Resp BP Sys/Gray Pulse Ox Last 24 Hr 97 F-98.3 F 51-100 16-20 105-136/55-66 96-99 Exam: General appearance: no distress, over weight, other (She is moving around today and looks much more comfortable) - Head Head exam: Present: normal inspection, normocephalic - Eye Eye exam: Present: EOMI. Absent: scleral icterus Pupils: Present: [place] - ENT ENT exam: Present: normal exam - Neck Neck exam: Absent: lymphadenopathy, thyromegaly - Respiratory Respiratory exam: Present: Patient has good breath sounds with some slight crackles in the bases. She has no wheezing. She is moving air well now. - Cardiovascular Cardiovascular exam: Present: regular rate and rhythm. Absent: gallop, systolic murmur - GI/Abdominal GI/Abdominal exam: Present: soft. Absent: distended, organomegaly, tenderness - Extremities Exam Extremities exam: Absent: calf tenderness, edema, no leg tenderness. - Neurological Exam Neurological exam: Present: altered (She is much more alert. She is getting around much better.) - Psychiatric Psychiatric exam: Present: normal affect - Skin Skin exam: Present: warm, dry Results - Labs CBC & BMP: 08/06/17 04:39 08/06/17 04:40 Assessment and Plan (1) Altered mental status Status: Acute Assessment and plan: The patient came in with sepsis and delirium and is doing much better now. She will continue antibiotic therapy. Current Visit: Yes (2) Pneumonia Status: Acute Assessment and plan: The patient does have an acute right lower lobe pneumonia. She has pneumococcus growing in her blood cultures. She is responding nicely to antibiotics. Current Visit: Yes Qualifiers: Pneumonia type: due to Pneumococcus (3) Sepsis Status: Acute Assessment and plan: The patient comes in with sepsis and has gotten a large volume of fluid. She looks better today and appears to be hemodynamically stable. Overall she is much improved. Current Visit: Yes Qualifiers: Sepsis type: Pneumococcus Qualified Code(s): A40.3 - Sepsis due to Streptococcus pneumoniae (4) CLL (chronic lymphocytic leukemia) Status: Chronic Assessment and plan: Patient has been getting chronic treatment for her CLL. Current Visit: Yes (5) Renal insufficiency Status: Acute Assessment and plan: Her creatinine is 1.4 now . Current Visit: No (6) S/P AVR (aortic valve replacement) Status: Chronic Assessment and plan: The patient has had previous aortic valve replacement. Current Visit: No (7) S/P MVR (mitral valve replacement) Status: Chronic Assessment and plan: Patient has had a previous mitral valve replacement. Will watch for heart failure. I will stop her IV fluids now. Current Visit: No
[2017-08-07] MEDS: ALBUTEROL 1.25 MG/3 ML NEB RESP TX SCH ×2 (01:01→07:40)
[2017-08-07] MEDS: PSEUDOEPHEDRINE 30 MG TABLET PO SCH ×2 (05:13→08:40)
[2017-08-07 06:56] LABS: Basophils % 0.1 % (0.0-0.8); Hematocrit 29.8 VOL% (35.7-47.0); Hemoglobin 9.4 GM/DL (12.0-16.0); Immature Granulocytes % 2.1 %; Immature Granulocytes Absolute 1.09 #; Lymphocytes # 48.3 10*3/uL (1.4-4.0); Lymphocytes % 93.1 % (21.3-54.2); Mean Corpuscular HGB Conc 31.5 GM/DL (32-36); Mean Corpuscular Hemoglobin 30 PG (27-34); Mean Corpuscular Volume 93.4 FL (87-102); Mean Platelet Volume 13.6 FL (9.6-12.0); Monocytes # 0.9 10*3/uL (0.11-0.8); Monocytes % 1.7 % (1.7-12.7); Neutrophils # 1.6 10*3/uL (1.4-7.4); Red Blood Count 3.19 MC/CUMM (3.8-5.5); Red Cell Distribution Width 14.2 % (9.3-17.3)
[2017-08-07 06:58] LABS: White Blood Count 51.9 T/CUMM (4-12)
[2017-08-07 06:59] LABS: Albumin 2.5 G/DL (3.4-5.0); Osmolality,Calculated 294.3 MOS/KG (273-304); Potassium 4.6 MMOL/L (3.5-5.1); Total Protein 4.8 G/DL (6.4-8.3)
[2017-08-07 06:59] LABS: Platelet Count 74 T/CUMM (130-400)
[2017-08-07 07:10] LABS: Band Neutrophils 2 % (0-10); Hypochromasia Slight; Lymphocytes 95 % (20-55); Nucleated Red Blood Cells 1 (0-5); Promyelocytes 1 %; Segmented Neutrophils 2 % (50-85); Smudge Cells Moderate; Total Cells Counted 100
[2017-08-07 07:11] LABS: Platelet Estimate Decreased
--- NOTE | 2017-08-07 08:16 | Oncology Progress Note ---
Oncology Subjective PN Interval history: Ms. Cyr is a 81 year old female with long-standing chronic lymphocytic leukemia who is admitted with an abrupt change in sensorium and fever and evidence to suggest that she is septic. Ms. Cyr is a 80 year old female who has long-standing chronic lymphocytic leukemia. She was actually initially diagnosed as having CLL in September 2004. It was CD20 positive. She has been treated with several different combinations of treatment. She's had Rituxan and bendamustine in the past and she is currently on Ibrutinib has been responding well to it. She went out to eat with her daughter earlier this week and had been doing well but when they had not heard from her for about 24 hours they went over to check on her and found her to be confused and prostrate. She has had serious infections in the past including one that produced lactic acidosis. She is immunocompromised by her chronic lymphocytic leukemia. 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 Cyr is an immunosuppressed patient admitted with gram-positive septicemia and history of chronic lymphocytic leukemia currently off IV medications but she is still on Imbruvica for her leukemia. She has been responding well. She was found unresponsive in her home and brought to the hospital. This is at least the second time this has happened. She is improving now and is oriented and alert.Blood cultures were reported back as being positive several days ago but the identification of the bacteria was not placed on the chart until the afternoon August 06, 2017. The patient has Streptococcus pneumoniae on 2 blood cultures. It is broadly sensitive. She also has Acinetobacter on urine culture but the colony count is very low. Anemia: Hemoglobin 9.4 today. Thrombocytopenia: Platelet count 74,000 and rising. We discontinued Zyvox yesterday. Chronic renal failure Serum creatinine is 1.4 and stable. CLL:White cell count 51,900. All immunoglobulins are low with an IgG of 326, an IgA of 56 and actually her IgM is normal at 65. [place] free light chains are normal. Complement values are normal including a C3 of 134.0 with a C4 of 30.9 and a CH 50 of 57. She has significantly improved. She has an appointment to see me August 13. I am discharging her today to continue Levaquin 750 mg p.o. daily for 7 more days. The Streptococcus pneumoniae that caused her sepsis is sensitive to it. Exam - Constitutional Vitals: Period Temp Pulse Resp BP Sys/Gray Pulse Ox Last 24 Hr 96.6 F-98.6 F 66-87 16-20 111-130/56-63 95-99 Results - Labs CBC & BMP: 08/07/17 06:05 08/07/17 06:08
[2017-08-07] MEDS: POTASSIUM CHLORIDE 20 MEQ TABLET PO SCH (08:40)
[2017-08-07] MEDS: METOPROLOL TARTRATE 25 MG TABLET PO SCH (08:40)
[2017-08-07] MEDS: DOCUSATE SODIUM 100 MG CAPSULE PO SCH (08:40)
[2017-08-07] MEDS: LOSARTAN 50 MG TABLET PO SCH (08:40)
[2017-08-07] MEDS: BUMETANIDE 1 MG TABLET PO SCH (08:40)
[2017-08-07] MEDS: ASPIRIN EC 81 MG TABLET PO SCH (08:40)
[2017-08-07] MEDS: MAGNESIUM CHLORIDE 64 MG TABLET PO SCH (08:40)
[2017-08-07] MEDS: FEXOFENADINE 180 MG TABLET PO SCH (08:40)
[2017-08-07] MEDS: EZETIMIBE 10 MG TABLET PO SCH (08:40)
[2017-08-07] MEDS: ZINC OXIDE PASTE 113 GM TUBE TOP SCH (08:40)
[2017-08-07] MEDS: MULTIVITAMIN (CENTRUM) TABLET PO SCH (08:40)
[2017-08-07] MEDS: IMBRUVICA 140 MG PO SCH (08:41)
[2017-08-07] MEDS ORDERED: LEVOFLOXACIN 750 MG TABLET PO SCH (09:00)
--- NOTE | 2017-08-07 09:05 | Discharge Summary ---
Hospital Course - Hospital Course Hospital Course: Ms. Cyr is a 81 year old female with long-standing chronic lymphocytic leukemia who is admitted with an abrupt change in sensorium and fever and evidence to suggest that she is septic. Ms. Cyr is a 80 year old female who has long-standing chronic lymphocytic leukemia. She was actually initially diagnosed as having CLL in September 2004. It was CD20 positive. She has been treated with several different combinations of treatment. She's had Rituxan and bendamustine in the past and she is currently on Ibrutinib has been responding well to it. She went out to eat with her daughter earlier this week and had been doing well but when they had not heard from her for about 24 hours they went over to check on her and found her to be confused and prostrate. She has had serious infections in the past including one that produced lactic acidosis. She is immunocompromised by her chronic lymphocytic leukemia. 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 Cyr is an immunosuppressed patient admitted with gram-positive septicemia and history of chronic lymphocytic leukemia currently off IV medications but she is still on Imbruvica for her leukemia. She has been responding well. She was found unresponsive in her home and brought to the hospital. This is at least the second time this has happened. She is improving now and is oriented and alert.Blood cultures were reported back as being positive several days ago but the identification of the bacteria was not placed on the chart until the afternoon August 06, 2017. The patient has Streptococcus pneumoniae on 2 blood cultures. It is broadly sensitive. She also has Acinetobacter on urine culture but the colony count is very low. Anemia: Hemoglobin 9.4 today. Thrombocytopenia: Platelet count 74,000 and rising. We discontinued Zyvox yesterday. Chronic renal failure Serum creatinine is 1.4 and stable. CLL:White cell count 51,900. All immunoglobulins are low with an IgG of 326, an IgA of 56 and actually her IgM is normal at 65. [place] free light chains are normal. Complement values are normal including a C3 of 134.0 with a C4 of 30.9 and a CH 50 of 57. She has significantly improved. She has an appointment to see me August 13. I am discharging her today to continue Levaquin 750 mg p.o. daily for 7 more days. The Streptococcus pneumoniae that caused her sepsis is sensitive to it. Discharge Plan - Discharge Data Disposition: Disch To Home/Self Care Condition at Discharge: Guarded Discharge Diet: advance to your usual diet Activity: resume usual activities as tolerated Hygiene: no restrictions Weight Bearing at Discharge: weight bear as tolerated Driving: other Contact your physician if you experience:: fever over 101, Difficulty voiding, Redness or swelling, Nausea/Vomiting, Shortness of breath, Bleeding, pain uncontrolled by pain medications - Discharge Medications Continue Aspirin [Ecotrin] 81 mg PO DAILY Docusate Sodium Cap [Colace Cap] 1 capsule PO DAILY Losartan [Cozaar] 50 mg PO DAILY Ezetimibe [Zetia] 10 mg PO DAILY Potassium Chloride [Klor-Con M20] 1 tablet PO DAILY Metoprolol Tartrate Tab [Lopressor Tab] 25 mg PO DAILY Magnesium Chloride [Slow Mag] 64 mg PO DAILY Bumetanide Tab [Bumex Tab] 1 mg PO DAILY Multivit-Min36/Iron/Folic Acid [Geritol Complete Tablet] 1 tablet PO DAILY Fexofenadine/Pseudoephedrine [Aminta-D 24 Hour Tablet] 1 each PO DAILY Ibrutinib [Imbruvica] 140 mg PO DAILY - Follow Up or Referral - Forms/Instructions Additional Discharge Instructions: Give the patient prescription I have written for Levaquin 750 mg with 7 tablets dispensed to take 1 daily for 7 days. It has 1 refill. Instructed her to keep the current appointment that she has to see me during 13 August. Exam - Constitutional Vitals: Period Temp Pulse Resp BP Sys/Gray Pulse Ox Last 24 Hr 96.6 F-98.6 F 66-87 16-20 111-130/56-63 95-99 Discharge Results Procedures and tests throughout hospitalization: Pending Orders 08/04/17 11:42 Sputum Culture and Gram Stain Stat 08/08/17 04:00 Comp Blood Count Auto Diff IN AM Comprehensive Metabolic Panel IN AM LDH [Lactate Dehydrogenase] IN AM 08/09/17 04:00 Comp Blood Count Auto Diff IN AM Comprehensive Metabolic Panel IN AM LDH [Lactate Dehydrogenase] IN AM 08/10/17 04:00 Comp Blood Count Auto Diff IN AM Comprehensive Metabolic Panel IN AM Labs on day of discharge: Labs from last 24 hours 08/07/17 08/07/17 06:08 06:05 WBC 51.9 H* D RBC 3.19 L Hgb 9.4 L Hct 29.8 L MCV 93.4 MCH 30 MCHC 31.5 L RDW 14.2 Plt Count 74 L MPV 13.6 H Neut % (Auto) 3.0 L Lymph % (Auto) 93.1 H [place] % (Auto) 1.7 Eos % (Auto) 0.0 Baso % (Auto) 0.1 Neut # (Auto) 1.6 Lymph # (Auto) 48.3 H [place] # (Auto) 0.9 H Eos # (Auto) 0.0 Baso # (Auto) 0.0 Total Counted 100 Immature Gran % 2.1 Nucleated RBC % 0.0 Immature Gran # 1.09 Segmented Neutrophils 2 L Band Neutrophils 2 Lymphocytes 95 H Promyelocytes 1 Nucleated RBCs 1 Nucleated RBCs # 0.00 Smudge Cells Moderate Platelet Estimate Decreased Immature Plt Fraction 16.0 H Hypochromasia Slight Sodium 141 Potassium 4.6 Chloride 108 H Carbon Dioxide 26 Anion Gap 11.6 BUN 49 H Creatinine 1.40 H GFR Calculation 45 BUN/Creatinine Ratio 35.00 H Glucose 119 H Calculated Osmolality 294.3 Calcium 9.0 Total Bilirubin 1.00 AST 18 ALT 29 Alkaline Phosphatase 46 Lactate Dehydrogenase 322 H Total Protein 4.8 L Albumin 2.5 L Globulin 2.3 Albumin/Globulin Ratio 1.0 L DS: Provider Date of admission: 08/03/17 00:16 Primary care physician: . No PCP Attending physician on admission: Darrell Miller MD Consults: 08/03/17 08:25 Consult to Physician [CONS] Routine Comment: CLL, Pnemonia Consulting Provider: Kris Weston Consulting Provider Notified: Yes When should Consulting Provider be notified: Now Consult to Specialist Group: Pulmonology When should Consulting Provider be notified: Now Person Notified: JESSE Date Notified: 08/03/17 Time Notified: 10:20 Discharging clinician: Darrell Miller MD
[2017-08-07 11:49] VITALS: BP 127/61
--- NOTE | 2017-08-07 12:55 | Pulmonology Progress Note ---
Pulmonary - PN: Subj Interval history: The patient is an 81-year-old black lady with CLL she comes in with a septic picture and right lower lobe pneumonia. She has been given antibiotics and fluids and is much better today. She had pneumococcus growing in her blood. She has been tolerating the antibiotics and she looks much better now. She is not short of breath now and doing more activity. Her fever is down and she feels like going home later today. Exam (Progress Note) - Constitutional Vitals: Period Temp Pulse Resp BP Sys/Gray Pulse Ox Last 24 Hr 96.6 F-98.6 F 66-92 16-20 111-130/56-62 93-99 Exam: General appearance: no distress, over weight, other (She is moving around today and looks much more comfortable. She is not having any respiratory distress now.) - Head Head exam: Present: normal inspection, normocephalic - Eye Eye exam: Present: EOMI. Absent: scleral icterus Pupils: Present: [place] - ENT ENT exam: Present: normal exam - Neck Neck exam: Absent: lymphadenopathy, thyromegaly - Respiratory Respiratory exam: Present: Patient has good breath sounds with some slight crackles in the bases. She has no wheezing. She is moving air well now. - Cardiovascular Cardiovascular exam: Present: regular rate and rhythm. Absent: gallop, systolic murmur - GI/Abdominal GI/Abdominal exam: Present: soft. Absent: distended, organomegaly, tenderness - Extremities Exam Extremities exam: Absent: calf tenderness, edema, no leg tenderness. - Neurological Exam Neurological exam: Present: altered (She is much more alert. She is getting around much better.) - Psychiatric Psychiatric exam: Present: normal affect - Skin Skin exam: Present: warm, dry Results - Labs CBC & BMP: 08/07/17 06:05 08/07/17 06:08 Assessment and Plan (1) Altered mental status Status: Acute Assessment and plan: The patient came in with sepsis and delirium and is doing much better now. She will continue antibiotic therapy. She is back to her baseline now. (2) Pneumonia Status: Acute Assessment and plan: The patient does have an acute right lower lobe pneumonia. She has pneumococcus growing in her blood cultures. She is responding nicely to antibiotics. She will go home on oral antibiotics. Qualifiers: Pneumonia type: due to Pneumococcus (3) Sepsis Status: Acute Assessment and plan: The patient comes in with sepsis and has gotten a large volume of fluid. She looks better today and appears to be hemodynamically stable. Overall she is much improved. She appears to be back to baseline now. Qualifiers: Sepsis type: Pneumococcus Qualified Code(s): A40.3 - Sepsis due to Streptococcus pneumoniae (4) CLL (chronic lymphocytic leukemia) Status: Chronic Assessment and plan: Patient has been getting chronic treatment for her CLL. (5) Renal insufficiency Status: Acute Assessment and plan: Her creatinine is 1.4 now . This may be her baseline now. (6) S/P AVR (aortic valve replacement) Status: Chronic Assessment and plan: The patient has had previous aortic valve replacement. (7) S/P MVR (mitral valve replacement) Status: Chronic Assessment and plan: Patient has had a previous mitral valve replacement. She has no signs of heart failure now. Specialty Discharge - Follow Up or Referrals
--- NOTE | 2017-08-07 13:29 | Physician Query Form ---
CLICK EDIT DOCUMENT TO SELECT QUERY ANSWER --> OK --> SIGN Aracelis Perkins RN Clinical Director Of Software Development W) [phone] (f) [phone] [email or web address] PROVIDERS: Make your selection(s) from the choices in EACH section by typing an "x" and enter comments in the comment section. Please use your independent medical judgment in providing your response. This request does not imply that any particular answer is desired or expected. CLINICAL INDICATORS: (Providers should not edit this section) Pt. admitted with acute sepsis. Based on documentation of "Hypotensive crisis due to metabolic acidosis with shock", Hxpp=874.8, Lwyhx=236, Respirations=36, WBC=68.8, Lactic acid=7.3, Creatinine=2.40. Bp=94/49. Pt. treated with IV Zyvox and IV fluids. Please clarify which, if any, of the following is the etiology of the above symptoms and treatment rendered: ( ) Sepsis due to a localized infection, please specify infection: ( ) Severe Sepsis (sepsis with acute organ failure) - Please specify type acute organ failure: ( ) Septic Shock (severe sepsis with hypotension) ( ) Other condition, please specify: ( x) Clinically unable to determine Criteria for Sepsis (SIRS due to an infection) should be based on 2 or more of the following being present: Temperature > 101F or < 96.8F WBC > 12,000 or < 4,000, or > 10% bands Tachycardia HR > 90 beats/minute Tachypnea RR > 20 breaths/minute or PaCO2 > 32mmHg Lactate level > 2.0 mmol/L (>4 is equivalent to severe sepsis) Altered Mental Status Mottling of skin or prolonged capillary refill Non-diabetic hyperglycemia (blood sugar >120 mg/dl) Other evidence of acute organ failure associated with sepsis ( severe sepsis) COMMENTS: PLEASE ALSO DOCUMENT RESPONSE IN PROGRESS NOTES AND/OR DISCHARGE SUMMARY Use of terms such as suspected, likely, or probable (associated with a specific diagnosis that is being evaluated, monitored, or treated as if it exists) are acceptable and can be restated in the discharge summary if not ruled out. MTDD
== END 2017-08-07 12:34 | disposition home or self-care (01) | DRG 871 ==
LOC: EDUNIT# → EDBD → N.ED 21:25 → N.4E 08-03 00:16
PROVIDERS: ADMIT Specialist; ATTEND Specialist

== ENCOUNTER 2018-03-24 12:41 | Inpatient (IN) ==
[2018-03-24] MEDS ORDERED: LEVOFLOXACIN INJ 500 MG in PREMIX 1 EACH IV STA (13:13)
[2018-03-24 13:30] LABS: Basophils # 0.1 10*3/uL (0.0-0.2); Basophils % 0.2 % (0.0-0.8); Hematocrit 41.2 VOL% (35.7-47.0); Hemoglobin 13.2 GM/DL (12.0-16.0); Lymphocytes # 28.1 10*3/uL (1.4-4.0); Lymphocytes % 95.9 % (21.3-54.2); Mean Corpuscular Hemoglobin 30 PG (27-34); Mean Platelet Volume 12.9 FL (9.6-12.0); Monocytes # 1.1 10*3/uL (0.11-0.8); Monocytes % 3.8 % (1.7-12.7); Neutrophils % 0.1 % (38.7-73.9); Platelet Count 157 T/CUMM (130-400); Red Blood Count 4.48 MC/CUMM (3.8-5.5); Red Cell Distribution Width 13.5 % (9.3-17.3); White Blood Count 29.3 T/CUMM (4-12)
[2018-03-24 13:53] LABS: Albumin 4.2 G/DL (3.4-5.0); Bilirubin,Total 0.9 MG/DL (0.2-1.0); Calcium 9.9 MG/DL (8.5-10.1); Osmolality,Calculated 278.1 MOS/KG (273-304); Potassium 4.4 MMOL/L (3.5-5.1); Total Protein 8.4 G/DL (6.4-8.3)
[2018-03-24 13:54] LABS: Lymphocytes 99 % (20-55); Ovalocytes Slight; Platelet Estimate Adequate; Poikilocytosis Slight; Segmented Neutrophils 1 % (50-85); Smudge Cells 1+; Tear Drop Cells Slight; Total Cells Counted 100
[2018-03-24 14:01] LABS: Apearance,Urine CLEAR (Clear); Bacteria,Urine Moderate /HPF (Few); Bilirubin,Urine Negative (Negative); Blood, Urine Small mg/dL (Negative); Glucose,Urine (UA) Negative (Negative); Ketones,Urine Negative (Negative); Mucus,Urine Occasional /LPF (Occasional); Nitrite,Urine Negative (Negative); Protein,Urine 100 MG/DL; RBC,Urine 2 /HPF (0-4); Urine Color Yellow (Yellow); Urine Specific Gravity 1.014 (1.001-1.035); Urine Urobilinogen < 2.0 EU/DL (0.2-1.0)
[2018-03-24] MEDS ORDERED: ONDANSETRON 4 MG/2 ML VIAL IV PRN (14:24)
[2018-03-24] MEDS ORDERED: LACTULOSE 20 GM/30 ML UDCUP PO PRN (14:24)
[2018-03-24] MEDS ORDERED: ALUMINUM/MAGNES/SIMETH MAX STR 30 ML UDCUP PO PRN (14:24)
[2018-03-24] MEDS ORDERED: TEMAZEPAM 7.5 MG CAPSULE PO PRN (14:24)
[2018-03-24] MEDS ORDERED: guaiFENesin 200 MG/10 ML UDCUP PO PRN (14:24)
[2018-03-24] MEDS ORDERED: LOPERAMIDE 2 MG CAPSULE PO PRN ×2 (14:24)
[2018-03-24] MEDS ORDERED: MAGNESIUM HYDROXIDE SUSP 30 ML UDCUP PO PRN (14:24)
[2018-03-24] MEDS ORDERED: ACETAMINOPHEN 325 MG TABLET PO PRN (14:24)
[2018-03-24] MEDS ORDERED: diphenhydrAMINE CAP 25 MG CAPSULE PO PRN (14:24)
[2018-03-24] MEDS: SODIUM CHLORIDE 0.9% 1,000 ML IV SCH (19:00)
[2018-03-24] MEDS: CLINDAMYCIN INJ 300 MG in PREMIX 1 EACH IV SCH (19:02)
[2018-03-24] MEDS ORDERED: LEVOFLOXACIN INJ 750 MG in PREMIX 1 EACH IV SCH (20:00)
[2018-03-24] MEDS ORDERED: LEVOFLOXACIN INJ 250 MG in PREMIX 1 EACH IV ONE (20:00)
[2018-03-24] MEDS ORDERED: ALBUTEROL 2.5 MG/3 ML NEB RESP TX PRN (20:04)
[2018-03-24] MEDS: FILGRASTIM-SNDZ 480 MCG/0.8 ML SYRINGE SUBCUT SCH (20:31)
[2018-03-24] MEDS: LEVALBUTEROL 1.25 MG/3 ML NEB RESP TX PRN (20:51)
[2018-03-24 21:48] LABS: Immunoglobulin A < 31 MG/DL (70-400); Immunoglobulin G 267 MG/DL (700-1600); Immunoglobulin M 48 MG/DL (40-230)
[2018-03-25] MEDS: CLINDAMYCIN INJ 300 MG in PREMIX 1 EACH IV SCH ×4 (00:06→19:44)
[2018-03-25 07:01] LABS: Basophils % 0.1 % (0.0-0.8); Hematocrit 32.2 VOL% (35.7-47.0); Hemoglobin 10.4 GM/DL (12.0-16.0); Immature Granulocytes % 0.2 %; Immature Granulocytes Absolute 0.05 #; Lymphocytes # 21.9 10*3/uL (1.4-4.0); Lymphocytes % 97.2 % (21.3-54.2); Mean Corpuscular HGB Conc 32.3 GM/DL (32-36); Mean Corpuscular Hemoglobin 29 PG (27-34); Mean Corpuscular Volume 90.7 FL (87-102); Mean Platelet Volume 13.1 FL (9.6-12.0); Monocytes # 0.5 10*3/uL (0.11-0.8); Monocytes % 2.3 % (1.7-12.7); Neutrophils % 0.2 % (38.7-73.9); Platelet Count 123 T/CUMM (130-400); Red Blood Count 3.55 MC/CUMM (3.8-5.5); Red Cell Distribution Width 13.6 % (9.3-17.3); White Blood Count 22.5 T/CUMM (4-12)
[2018-03-25 07:31] LABS: Lymphocytes 93 % (20-55); Segmented Neutrophils 1 % (50-85); Total Cells Counted 100
[2018-03-25 07:32] LABS: Hypochromasia Slight; Platelet Estimate Decreased
[2018-03-25] MEDS: PANTOPRAZOLE 40 MG TABLET PO SCH (09:11)
[2018-03-25] MEDS: FILGRASTIM-SNDZ 480 MCG/0.8 ML SYRINGE SUBCUT SCH (09:11)
[2018-03-25] MEDS: SODIUM CHLORIDE 0.9% 1,000 ML IV SCH (11:07)
[2018-03-25] MEDS: BUMETANIDE 1 MG TABLET PO SCH (13:54)
[2018-03-25] MEDS ORDERED: LEVOFLOXACIN INJ 250 MG in PREMIX 1 EACH IV SCH (14:00)
[2018-03-25] MEDS: LEVALBUTEROL 1.25 MG/3 ML NEB RESP TX PRN (14:26)
[2018-03-26] MEDS: CLINDAMYCIN INJ 300 MG in PREMIX 1 EACH IV SCH ×4 (01:43→22:29)
[2018-03-26] MEDS: SODIUM CHLORIDE 0.9% 1,000 ML IV SCH (02:14)
[2018-03-26 05:31] LABS: Basophils % 0.2 % (0.0-0.8); Eosinophils % 0.1 % (0.00-10.9); Hematocrit 30.6 VOL% (35.7-47.0); Hemoglobin 9.6 GM/DL (12.0-16.0); Immature Granulocytes % 0.1 %; Immature Granulocytes Absolute 0.02 #; Lymphocytes # 17.8 10*3/uL (1.4-4.0); Mean Corpuscular HGB Conc 31.4 GM/DL (32-36); Mean Corpuscular Hemoglobin 29 PG (27-34); Mean Corpuscular Volume 92.7 FL (87-102); Monocytes # 0.5 10*3/uL (0.11-0.8); Monocytes % 2.5 % (1.7-12.7); Neutrophils % 0.1 % (38.7-73.9); Platelet Count 113 T/CUMM (130-400); Red Cell Distribution Width 13.6 % (9.3-17.3); White Blood Count 18.3 T/CUMM (4-12)
[2018-03-26 05:58] LABS: Osmolality,Calculated 283.7 MOS/KG (273-304); Potassium 3.8 MMOL/L (3.5-5.1)
[2018-03-26 06:02] LABS: Atypical Lymphocytes Few; Hypochromasia 1+; Lymphocytes 98 % (20-55); Smudge Cells Few; Total Cells Counted 100
[2018-03-26 06:03] LABS: Microcytosis Slight; Ovalocytes Slight; Platelet Estimate Adequate
[2018-03-26] MEDS ORDERED: IBRUTINIB 280 MG PO SCH (09:00)
[2018-03-26] MEDS: FILGRASTIM-SNDZ 480 MCG/0.8 ML SYRINGE SUBCUT SCH (09:46)
[2018-03-26] MEDS: PANTOPRAZOLE 40 MG TABLET PO SCH (09:56)
[2018-03-26] MEDS: BUMETANIDE 1 MG TABLET PO SCH (09:56)
[2018-03-26] MEDS: POTASSIUM CHLORIDE 20 MEQ TABLET PO SCH (14:53)
[2018-03-26] MEDS: METOPROLOL SUCCINATE XL 25 MG TABLET PO SCH (14:53)
[2018-03-26] MEDS ORDERED: LEVOFLOXACIN INJ 750 MG in PREMIX 1 EACH IV SCH (20:30)
[2018-03-27] MEDS: CLINDAMYCIN INJ 300 MG in PREMIX 1 EACH IV SCH ×2 (03:59→11:49)
[2018-03-27 08:42] LABS: Basophils % 0.2 % (0.0-0.8); Eosinophils % 0.1 % (0.00-10.9); Hematocrit 28.6 VOL% (35.7-47.0); Hemoglobin 9.1 GM/DL (12.0-16.0); Lymphocytes # 19.1 10*3/uL (1.4-4.0); Lymphocytes % 95.9 % (21.3-54.2); Mean Corpuscular HGB Conc 31.8 GM/DL (32-36); Mean Corpuscular Hemoglobin 29 PG (27-34); Mean Corpuscular Volume 91.7 FL (87-102); Monocytes # 0.7 10*3/uL (0.11-0.8); Monocytes % 3.4 % (1.7-12.7); Neutrophils # 0.1 10*3/uL (1.4-7.4); Neutrophils % 0.4 % (38.7-73.9); Platelet Count 127 T/CUMM (130-400); Red Blood Count 3.12 MC/CUMM (3.8-5.5); Red Cell Distribution Width 13.5 % (9.3-17.3); White Blood Count 19.9 T/CUMM (4-12)
[2018-03-27] MEDS ORDERED: MAGNESIUM CHLORIDE 64 MG TABLET PO SCH (09:00)
[2018-03-27 09:12] LABS: Calcium 8.2 MG/DL (8.5-10.1); Osmolality,Calculated 281.5 MOS/KG (273-304)
[2018-03-27 09:24] LABS: Lymphocytes 96 % (20-55); Total Cells Counted 100
[2018-03-27 09:25] LABS: Anisocytosis Slight; Atypical Lymphocytes Few; Reactive Lymphocytes Few; Smudge Cells 1+
[2018-03-27 09:26] LABS: Platelet Estimate Normal
[2018-03-27] MEDS: POTASSIUM CHLORIDE 20 MEQ TABLET PO SCH (10:30)
[2018-03-27] MEDS: BUMETANIDE 1 MG TABLET PO SCH (10:32)
[2018-03-27] MEDS: PANTOPRAZOLE 40 MG TABLET PO SCH (10:32)
[2018-03-27] MEDS: METOPROLOL SUCCINATE XL 25 MG TABLET PO SCH (10:32)
[2018-03-27] MEDS: FILGRASTIM-SNDZ 480 MCG/0.8 ML SYRINGE SUBCUT SCH (10:33)
[2018-03-27] MEDS ORDERED: LISINOPRIL 5 MG TABLET PO SCH (12:00)
[2018-03-27] MEDS: METOPROLOL SUCCINATE XL 25 MG TABLET PO ONE ×2 (12:25→12:33)
[2018-03-27] MEDS: LEVOFLOXACIN INJ 500 MG in PREMIX 1 EACH IV SCH (17:33)
[2018-03-27] MEDS: CLINDAMYCIN INJ 900 MG in PREMIX 1 EACH IV SCH (19:12)
[2018-03-27] MEDS: MAGNESIUM CHLORIDE 64 MG TABLET PO SCH (20:10)
[2018-03-28] MEDS: CLINDAMYCIN INJ 900 MG in PREMIX 1 EACH IV SCH ×3 (00:54→18:25)
[2018-03-28 05:40] LABS: Basophils # 0.1 10*3/uL (0.0-0.2); Basophils % 0.2 % (0.0-0.8); Eosinophils % 0.1 % (0.00-10.9); Hematocrit 29.7 VOL% (35.7-47.0); Hemoglobin 9.4 GM/DL (12.0-16.0); Immature Granulocytes Absolute 0.01 #; Lymphocytes # 27.1 10*3/uL (1.4-4.0); Lymphocytes % 93.2 % (21.3-54.2); Mean Corpuscular HGB Conc 31.6 GM/DL (32-36); Mean Corpuscular Hemoglobin 29 PG (27-34); Mean Platelet Volume 13.3 FL (9.6-12.0); Monocytes # 1.7 10*3/uL (0.11-0.8); Monocytes % 5.8 % (1.7-12.7); Neutrophils # 0.2 10*3/uL (1.4-7.4); Neutrophils % 0.7 % (38.7-73.9); Platelet Count 160 T/CUMM (130-400); Red Cell Distribution Width 13.5 % (9.3-17.3)
[2018-03-28 06:06] LABS: Atypical Lymphocytes Few; Lymphocytes 95 % (20-55); Platelet Estimate Normal; Total Cells Counted 100
[2018-03-28 06:07] LABS: Albumin 2.9 G/DL (3.4-5.0); Bilirubin,Total 0.6 MG/DL (0.2-1.0); Calcium 8.4 MG/DL (8.5-10.1); Hypochromasia Slight; Osmolality,Calculated 282.5 MOS/KG (273-304); Potassium 3.7 MMOL/L (3.5-5.1); Total Protein 5.6 G/DL (6.4-8.3)
[2018-03-28 06:08] LABS: Microcytosis Slight
[2018-03-28 06:24] LABS: Risk Ratio 4.79; VLDL CHOLESTEROL 19.4 MG/DL
[2018-03-28] MEDS: PANTOPRAZOLE 40 MG TABLET PO SCH (09:07)
[2018-03-28] MEDS: METOPROLOL SUCCINATE XL 50 MG TABLET PO SCH (09:07)
[2018-03-28] MEDS: MAGNESIUM CHLORIDE 64 MG TABLET PO SCH ×2 (09:07→20:14)
[2018-03-28] MEDS: BUMETANIDE 1 MG TABLET PO SCH (09:07)
[2018-03-28] MEDS: POTASSIUM CHLORIDE 20 MEQ TABLET PO SCH (09:07)
[2018-03-28] MEDS: FILGRASTIM-SNDZ 480 MCG/0.8 ML SYRINGE SUBCUT SCH (09:07)
[2018-03-28 10:00] LABS: Basophils # 0.1 10*3/uL (0.0-0.2); Basophils % 0.2 % (0.0-0.8); Eosinophils % 0.1 % (0.00-10.9); Hematocrit 30.5 VOL% (35.7-47.0); Hemoglobin 9.7 GM/DL (12.0-16.0); Immature Granulocytes Absolute 0.01 #; Lymphocytes # 27.8 10*3/uL (1.4-4.0); Lymphocytes % 94.7 % (21.3-54.2); Mean Corpuscular HGB Conc 31.8 GM/DL (32-36); Mean Corpuscular Hemoglobin 29 PG (27-34); Mean Platelet Volume 13.6 FL (9.6-12.0); Monocytes # 1.2 10*3/uL (0.11-0.8); Monocytes % 4.1 % (1.7-12.7); Neutrophils # 0.3 10*3/uL (1.4-7.4); Neutrophils % 0.9 % (38.7-73.9); Platelet Count 154 T/CUMM (130-400); Red Blood Count 3.39 MC/CUMM (3.8-5.5); Red Cell Distribution Width 13.7 % (9.3-17.3); White Blood Count 29.3 T/CUMM (4-12)
[2018-03-28 10:34] LABS: Lymphocytes 99 % (20-55); Total Cells Counted 100
[2018-03-28 10:35] LABS: Atypical Lymphocytes 1+; Platelet Estimate Normal; Smudge Cells Few
[2018-03-28] MEDS: LEVOFLOXACIN INJ 500 MG in PREMIX 1 EACH IV SCH (16:42)
[2018-03-29] MEDS: CLINDAMYCIN INJ 900 MG in PREMIX 1 EACH IV SCH ×3 (01:16→17:04)
[2018-03-29 05:30] LABS: Basophils # 0.1 10*3/uL (0.0-0.2); Basophils % 0.1 % (0.0-0.8); Eosinophils % 0.1 % (0.00-10.9); Hematocrit 32.6 VOL% (35.7-47.0); Hemoglobin 10.6 GM/DL (12.0-16.0); Immature Granulocytes % 0.1 %; Immature Granulocytes Absolute 0.04 #; Lymphocytes # 50.9 10*3/uL (1.4-4.0); Lymphocytes % 92.8 % (21.3-54.2); Mean Corpuscular HGB Conc 32.5 GM/DL (32-36); Mean Corpuscular Hemoglobin 29 PG (27-34); Mean Corpuscular Volume 88.6 FL (87-102); Mean Platelet Volume 13.5 FL (9.6-12.0); Monocytes # 2.8 10*3/uL (0.11-0.8); NRBC # 0.04 10*3/uL; Neutrophils # 1.1 10*3/uL (1.4-7.4); Neutrophils % 1.9 % (38.7-73.9); Platelet Count 232 T/CUMM (130-400); Red Blood Count 3.68 MC/CUMM (3.8-5.5); Red Cell Distribution Width 13.8 % (9.3-17.3)
[2018-03-29 05:40] LABS: White Blood Count 54.9 T/CUMM (4-12)
[2018-03-29 05:53] LABS: Lymphocytes 96 % (20-55); Total Cells Counted 100
[2018-03-29 05:55] LABS: Atypical Lymphocytes Few; Hypochromasia Slight; Microcytosis Slight
[2018-03-29 05:56] LABS: Platelet Estimate Normal; Smudge Cells Few
[2018-03-29 06:03] LABS: Bilirubin,Total 1.1 MG/DL (0.2-1.0); Calcium 8.4 MG/DL (8.5-10.1); Potassium 3.6 MMOL/L (3.5-5.1)
[2018-03-29] MEDS: METOPROLOL SUCCINATE XL 50 MG TABLET PO SCH (09:24)
[2018-03-29] MEDS: BUMETANIDE 1 MG TABLET PO SCH (09:24)
[2018-03-29] MEDS: FILGRASTIM-SNDZ 480 MCG/0.8 ML SYRINGE SUBCUT SCH (09:24)
[2018-03-29] MEDS: CETIRIZINE 10 MG TABLET PO SCH (09:24)
[2018-03-29] MEDS: PANTOPRAZOLE 40 MG TABLET PO SCH (09:24)
[2018-03-29] MEDS: POTASSIUM CHLORIDE 20 MEQ TABLET PO SCH (09:24)
[2018-03-29] MEDS: MAGNESIUM CHLORIDE 64 MG TABLET PO SCH ×2 (09:24→21:45)
[2018-03-29] MEDS: LEVALBUTEROL 1.25 MG/3 ML NEB RESP TX SCH (14:18)
[2018-03-29] MEDS: LEVOFLOXACIN INJ 500 MG in PREMIX 1 EACH IV SCH (16:01)
[2018-03-30] MEDS: LEVALBUTEROL 1.25 MG/3 ML NEB RESP TX SCH ×4 (00:03→23:42)
[2018-03-30] MEDS: CLINDAMYCIN INJ 900 MG in PREMIX 1 EACH IV SCH ×2 (01:11→09:33)
[2018-03-30 04:26] LABS: Basophils # 0.2 10*3/uL (0.0-0.2); Basophils % 0.5 % (0.0-0.8); Eosinophils % 0.1 % (0.00-10.9); Hematocrit 30.7 VOL% (35.7-47.0); Hemoglobin 10.1 GM/DL (12.0-16.0); Lymphocytes % 88.4 % (21.3-54.2); Mean Corpuscular HGB Conc 32.9 GM/DL (32-36); Mean Corpuscular Hemoglobin 29 PG (27-34); Mean Corpuscular Volume 87.5 FL (87-102); Mean Platelet Volume 13.3 FL (9.6-12.0); Monocytes # 1.6 10*3/uL (0.11-0.8); NRBC # 0.04 10*3/uL; Neutrophils # 2.4 10*3/uL (1.4-7.4); Platelet Count 187 T/CUMM (130-400); Red Blood Count 3.51 MC/CUMM (3.8-5.5); White Blood Count 39.6 T/CUMM (4-12)
[2018-03-30 04:56] LABS: Albumin 2.9 G/DL (3.4-5.0); Bilirubin,Total 0.8 MG/DL (0.2-1.0); Potassium 3.6 MMOL/L (3.5-5.1); Total Protein 6.4 G/DL (6.4-8.3)
[2018-03-30 05:08] LABS: Atypical Lymphocytes Few; Eosinophils 1 % (0-10); Hypochromasia Slight; Lymphocytes 96 % (20-55); Segmented Neutrophils 2 % (50-85); Smudge Cells Few; Total Cells Counted 100
[2018-03-30 05:09] LABS: Microcytosis Slight; Ovalocytes Slight; Platelet Estimate Adequate
[2018-03-30] MEDS: POTASSIUM CHLORIDE 20 MEQ TABLET PO SCH (09:27)
[2018-03-30] MEDS: CETIRIZINE 10 MG TABLET PO SCH (09:28)
[2018-03-30] MEDS: MAGNESIUM CHLORIDE 64 MG TABLET PO SCH ×2 (09:28→21:13)
[2018-03-30] MEDS: PANTOPRAZOLE 40 MG TABLET PO SCH (09:29)
[2018-03-30] MEDS: METOPROLOL SUCCINATE XL 50 MG TABLET PO SCH (09:29)
[2018-03-30] MEDS: BUMETANIDE 1 MG TABLET PO SCH (09:29)
[2018-03-30] MEDS: FILGRASTIM-SNDZ 480 MCG/0.8 ML SYRINGE SUBCUT SCH (09:30)
[2018-03-30] MEDS: methylPREDNISolone SOD SUC 40 MG/1 ML VIAL IV SCH ×2 (16:12→22:46)
[2018-03-30] MEDS: LEVOFLOXACIN INJ 500 MG in PREMIX 1 EACH IV SCH (16:12)
[2018-03-31 05:55] LABS: Basophils % 0.1 % (0.0-0.8); Hematocrit 31.6 VOL% (35.7-47.0); Immature Granulocytes % 2.9 %; Immature Granulocytes Absolute 1.05 #; Lymphocytes # 25.6 10*3/uL (1.4-4.0); Lymphocytes % 70.8 % (21.3-54.2); Mean Corpuscular HGB Conc 31.6 GM/DL (32-36); Mean Corpuscular Hemoglobin 29 PG (27-34); Mean Corpuscular Volume 90.3 FL (87-102); Monocytes # 2.3 10*3/uL (0.11-0.8); Monocytes % 6.4 % (1.7-12.7); NRBC # 0.06 10*3/uL; Neutrophils # 7.2 10*3/uL (1.4-7.4); Neutrophils % 19.8 % (38.7-73.9); Platelet Count 174 T/CUMM (130-400); Red Cell Distribution Width 14.1 % (9.3-17.3); White Blood Count 36.2 T/CUMM (4-12)
[2018-03-31] MEDS: methylPREDNISolone SOD SUC 40 MG/1 ML VIAL IV SCH ×3 (06:09→22:29)
[2018-03-31 06:20] LABS: Atypical Lymphocytes Few; Band Neutrophils 7 % (0-10); Lymphocytes 75 % (20-55); Segmented Neutrophils 12 % (50-85); Total Cells Counted 100
[2018-03-31 06:21] LABS: Ovalocytes 1+; Platelet Estimate Normal; Polychromasia Few
[2018-03-31 06:22] LABS: Giant Platelets Few; Hypochromasia Slight; Smudge Cells Few
[2018-03-31 06:30] LABS: Albumin 2.8 G/DL (3.4-5.0); Bilirubin,Total 0.8 MG/DL (0.2-1.0); Calcium 9.4 MG/DL (8.5-10.1); Osmolality,Calculated 285.8 MOS/KG (273-304); Potassium 3.9 MMOL/L (3.5-5.1); Total Protein 6.6 G/DL (6.4-8.3)
[2018-03-31] MEDS: LEVALBUTEROL 1.25 MG/3 ML NEB RESP TX SCH ×2 (07:13→14:55)
[2018-03-31] MEDS: MAGNESIUM CHLORIDE 64 MG TABLET PO SCH ×2 (10:19→20:26)
[2018-03-31] MEDS: BUMETANIDE 1 MG TABLET PO SCH (10:19)
[2018-03-31] MEDS: CETIRIZINE 10 MG TABLET PO SCH (10:20)
[2018-03-31] MEDS: PANTOPRAZOLE 40 MG TABLET PO SCH (10:20)
[2018-03-31] MEDS: METOPROLOL SUCCINATE XL 50 MG TABLET PO SCH (10:20)
[2018-03-31] MEDS: POTASSIUM CHLORIDE 20 MEQ TABLET PO SCH (10:20)
[2018-03-31] MEDS: FILGRASTIM-SNDZ 480 MCG/0.8 ML SYRINGE SUBCUT SCH (10:23)
[2018-03-31] MEDS: LEVOFLOXACIN INJ 500 MG in PREMIX 1 EACH IV SCH (15:45)
[2018-04-01] MEDS: LEVALBUTEROL 1.25 MG/3 ML NEB RESP TX SCH ×2 (00:12→07:11)
[2018-04-01 05:12] LABS: Basophils % 0.1 % (0.0-0.8); Hematocrit 31.6 VOL% (35.7-47.0); Hemoglobin 10.1 GM/DL (12.0-16.0); Immature Granulocytes % 4.5 %; Immature Granulocytes Absolute 2.05 #; Lymphocytes # 23.2 10*3/uL (1.4-4.0); Lymphocytes % 51.3 % (21.3-54.2); Mean Corpuscular Hemoglobin 29 PG (27-34); Mean Corpuscular Volume 90.8 FL (87-102); Mean Platelet Volume 12.9 FL (9.6-12.0); Monocytes # 6.4 10*3/uL (0.11-0.8); Monocytes % 14.1 % (1.7-12.7); NRBC # 0.12 10*3/uL; Neutrophils # 13.5 10*3/uL (1.4-7.4); Platelet Count 183 T/CUMM (130-400); Red Blood Count 3.48 MC/CUMM (3.8-5.5); Red Cell Distribution Width 14.5 % (9.3-17.3)
[2018-04-01 05:17] LABS: White Blood Count 45.2 T/CUMM (4-12)
[2018-04-01 05:36] LABS: Band Neutrophils 2 % (0-10); Lymphocytes 55 % (20-55); Segmented Neutrophils 34 % (50-85); Total Cells Counted 100
[2018-04-01 05:37] LABS: Atypical Lymphocytes Few; Burr Cells Slight; Hypochromasia 1+; Microcytosis Slight; Ovalocytes Slight; Platelet Estimate Adequate; Smudge Cells Few
[2018-04-01 05:40] LABS: Albumin 2.8 G/DL (3.4-5.0); Bilirubin,Total 1.3 MG/DL (0.2-1.0); Calcium 9.9 MG/DL (8.5-10.1); Osmolality,Calculated 289.5 MOS/KG (273-304); Potassium 4.6 MMOL/L (3.5-5.1); Total Protein 6.4 G/DL (6.4-8.3)
[2018-04-01] MEDS: methylPREDNISolone SOD SUC 40 MG/1 ML VIAL IV SCH (06:09)
[2018-04-01] MEDS: MAGNESIUM CHLORIDE 64 MG TABLET PO SCH ×2 (10:14→20:25)
[2018-04-01] MEDS: METOPROLOL SUCCINATE XL 50 MG TABLET PO SCH (10:14)
[2018-04-01] MEDS: POTASSIUM CHLORIDE 20 MEQ TABLET PO SCH (10:14)
[2018-04-01] MEDS: FILGRASTIM-SNDZ 480 MCG/0.8 ML SYRINGE SUBCUT SCH (10:15)
[2018-04-01] MEDS: CETIRIZINE 10 MG TABLET PO SCH (10:15)
[2018-04-01] MEDS: BUMETANIDE 1 MG TABLET PO SCH (10:15)
[2018-04-01] MEDS: PANTOPRAZOLE 40 MG TABLET PO SCH (10:15)
[2018-04-01] MEDS ORDERED: methylPREDNISolone SOD SUC 40 MG/1 ML VIAL IV SCH (10:30)
[2018-04-01] MEDS: LEVOFLOXACIN 750 MG TABLET PO SCH (16:19)
[2018-04-01] MEDS: predniSONE 20 MG TABLET PO SCH (20:25)
[2018-04-02] MEDS: LEVALBUTEROL 1.25 MG/3 ML NEB RESP TX SCH ×4 (00:10→18:50)
[2018-04-02 05:45] LABS: Basophils # 0.1 10*3/uL (0.0-0.2); Basophils % 0.1 % (0.0-0.8); Hematocrit 32.5 VOL% (35.7-47.0); Hemoglobin 10.2 GM/DL (12.0-16.0); Immature Granulocytes % 4.9 %; Immature Granulocytes Absolute 4.34 #; Lymphocytes # 40.7 10*3/uL (1.4-4.0); Mean Corpuscular HGB Conc 31.4 GM/DL (32-36); Mean Corpuscular Hemoglobin 29 PG (27-34); Mean Platelet Volume 12.2 FL (9.6-12.0); Monocytes # 20.2 10*3/uL (0.11-0.8); Monocytes % 22.8 % (1.7-12.7); NRBC # 0.41 10*3/uL; Neutrophils # 23.2 10*3/uL (1.4-7.4); Neutrophils % 26.2 % (38.7-73.9); Platelet Count 232 T/CUMM (130-400); Red Blood Count 3.57 MC/CUMM (3.8-5.5)
[2018-04-02 05:50] LABS: White Blood Count 88.5 T/CUMM (4-12)
[2018-04-02 06:11] LABS: Band Neutrophils 1 % (0-10); Lymphocytes 63 % (20-55); Segmented Neutrophils 33 % (50-85); Total Cells Counted 100
[2018-04-02 06:15] LABS: Hypochromasia 1+; Platelet Estimate Normal; Polychromasia Few
[2018-04-02 06:16] LABS: Atypical Lymphocytes 1+; Ovalocytes 2+; Smudge Cells Few
[2018-04-02 06:18] LABS: Giant Platelets Few
[2018-04-02 06:25] LABS: Albumin 2.9 G/DL (3.4-5.0); Calcium 10.4 MG/DL (8.5-10.1); Osmolality,Calculated 292.4 MOS/KG (273-304); Potassium 4.2 MMOL/L (3.5-5.1); Total Protein 6.5 G/DL (6.4-8.3)
[2018-04-02] MEDS: LEVOFLOXACIN 750 MG TABLET PO SCH (08:20)
[2018-04-02] MEDS: CETIRIZINE 10 MG TABLET PO SCH (08:20)
[2018-04-02] MEDS: predniSONE 20 MG TABLET PO SCH ×2 (08:20→20:54)
[2018-04-02] MEDS: PANTOPRAZOLE 40 MG TABLET PO SCH (08:20)
[2018-04-02] MEDS: METOPROLOL SUCCINATE XL 50 MG TABLET PO SCH (08:20)
[2018-04-02] MEDS: POTASSIUM CHLORIDE 20 MEQ TABLET PO SCH (08:20)
[2018-04-02] MEDS: MAGNESIUM CHLORIDE 64 MG TABLET PO SCH ×2 (08:20→20:54)
[2018-04-02] MEDS: BUMETANIDE 1 MG TABLET PO SCH (08:23)
[2018-04-02] MEDS: DEXTROSE 5% 1,000 ML IV SCH (21:53)
[2018-04-03] MEDS: LEVALBUTEROL 1.25 MG/3 ML NEB RESP TX SCH ×3 (00:40→14:00)
[2018-04-03] MEDS: DEXTROSE 5% 1,000 ML IV SCH ×3 (04:43→20:48)
[2018-04-03] MEDS: MAGNESIUM CHLORIDE 64 MG TABLET PO SCH ×2 (10:00→20:49)
[2018-04-03] MEDS: PANTOPRAZOLE 40 MG TABLET PO SCH (10:00)
[2018-04-03] MEDS: METOPROLOL SUCCINATE XL 50 MG TABLET PO SCH (10:00)
[2018-04-03] MEDS: POTASSIUM CHLORIDE 20 MEQ TABLET PO SCH (10:00)
[2018-04-03] MEDS: predniSONE 20 MG TABLET PO SCH (10:00)
[2018-04-03] MEDS: CETIRIZINE 10 MG TABLET PO SCH (10:00)
[2018-04-03 10:35] LABS: Basophils # 0.1 10*3/uL (0.0-0.2); Basophils % 0.1 % (0.0-0.8); Hematocrit 29.6 VOL% (35.7-47.0); Hemoglobin 9.7 GM/DL (12.0-16.0); Immature Granulocytes % 2.6 %; Immature Granulocytes Absolute 2.07 #; Lymphocytes % 44.5 % (21.3-54.2); Mean Corpuscular HGB Conc 32.8 GM/DL (32-36); Mean Corpuscular Hemoglobin 29 PG (27-34); Mean Corpuscular Volume 89.4 FL (87-102); Mean Platelet Volume 12.8 FL (9.6-12.0); Monocytes # 29.7 10*3/uL (0.11-0.8); Monocytes % 37.8 % (1.7-12.7); Neutrophils # 11.8 10*3/uL (1.4-7.4); Platelet Count 187 T/CUMM (130-400); Red Blood Count 3.31 MC/CUMM (3.8-5.5); Red Cell Distribution Width 15.3 % (9.3-17.3)
[2018-04-03 10:40] LABS: White Blood Count 78.7 T/CUMM (4-12)
[2018-04-03 10:59] LABS: Albumin 2.8 G/DL (3.4-5.0); Bilirubin,Total 0.4 MG/DL (0.2-1.0); Calcium 9.5 MG/DL (8.5-10.1); Osmolality,Calculated 290.7 MOS/KG (273-304); Potassium 3.8 MMOL/L (3.5-5.1); Total Protein 5.8 G/DL (6.4-8.3)
[2018-04-03 11:03] LABS: Atypical Lymphocytes Moderate; Band Neutrophils 4 % (0-10); Lymphocytes 69 % (20-55); Nucleated Red Blood Cells 1 (0-5); Segmented Neutrophils 25 % (50-85); Smudge Cells Few; Total Cells Counted 100
[2018-04-03 11:04] LABS: Hypochromasia 1+; Microcytosis Slight; Platelet Estimate Adequate; Polychromasia Slight
[2018-04-03 11:05] LABS: Ovalocytes Slight
[2018-04-03 11:06] LABS: Tear Drop Cells Slight
[2018-04-04] MEDS: LEVALBUTEROL 1.25 MG/3 ML NEB RESP TX SCH ×2 (00:34→07:11)
[2018-04-04] MEDS: DEXTROSE 5% 1,000 ML IV SCH (01:18)
[2018-04-04 04:52] LABS: Basophils # 0.1 10*3/uL (0.0-0.2); Basophils % 0.1 % (0.0-0.8); Hemoglobin 9.9 GM/DL (12.0-16.0); Immature Granulocytes % 1.5 %; Immature Granulocytes Absolute 1.31 #; Lymphocytes # 38.3 10*3/uL (1.4-4.0); Lymphocytes % 44.8 % (21.3-54.2); Mean Corpuscular HGB Conc 30.9 GM/DL (32-36); Mean Corpuscular Hemoglobin 30 PG (27-34); Mean Corpuscular Volume 95.8 FL (87-102); Mean Platelet Volume 12.2 FL (9.6-12.0); Monocytes # 38.2 10*3/uL (0.11-0.8); Monocytes % 44.6 % (1.7-12.7); NRBC # 0.31 10*3/uL; Neutrophils # 7.6 10*3/uL (1.4-7.4); Platelet Count 154 T/CUMM (130-400); Red Blood Count 3.34 MC/CUMM (3.8-5.5); Red Cell Distribution Width 15.9 % (9.3-17.3)
[2018-04-04 04:55] LABS: White Blood Count 85.5 T/CUMM (4-12)
[2018-04-04 05:04] LABS: Albumin 2.8 G/DL (3.4-5.0); Calcium 9.1 MG/DL (8.5-10.1); Osmolality,Calculated 291.4 MOS/KG (273-304); Total Protein 5.2 G/DL (6.4-8.3)
[2018-04-04 05:36] LABS: Atypical Lymphocytes Moderate; Hypochromasia 1+; Lymphocytes 88 % (20-55); Microcytosis Slight; Platelet Estimate Normal; Segmented Neutrophils 11 % (50-85); Smudge Cells Few; Total Cells Counted 100
[2018-04-04 07:32] VITALS: BP 145/73
[2018-04-04] MEDS: MAGNESIUM CHLORIDE 64 MG TABLET PO SCH (08:31)
[2018-04-04] MEDS: PANTOPRAZOLE 40 MG TABLET PO SCH (08:33)
[2018-04-04] MEDS: METOPROLOL SUCCINATE XL 50 MG TABLET PO SCH (08:33)
[2018-04-04] MEDS: POTASSIUM CHLORIDE 20 MEQ TABLET PO SCH (08:33)
[2018-04-04] MEDS: CETIRIZINE 10 MG TABLET PO SCH (08:33)
[2018-04-04] MEDS ORDERED: predniSONE 20 MG TABLET PO SCH (09:00)
[2018-04-04] MEDS ORDERED: LEVOFLOXACIN 750 MG TABLET PO SCH (09:00)
[2018-04-04] MEDS ORDERED: BUDESONIDE/FORMOTEROL 160-4.5 INHALER 6 GM INH SCH (10:00)
== END 2018-04-04 12:40 | disposition home or self-care (01) | DRG 871 ==
LOC: N.ED 12:41 → N.EDINP 14:24 → N.4E 16:30
PROVIDERS: ADMIT Specialist; ATTEND Specialist

== ENCOUNTER 2018-04-13 09:50 | Inpatient (IN) ==
[2018-04-13] MEDS ORDERED: ONDANSETRON 4 MG/2 ML VIAL IV STA (10:06)
[2018-04-13] MEDS ORDERED: methylPREDNISolone SOD SUC 125 MG/2 ML VIAL IV STA (10:06)
[2018-04-13] MEDS ORDERED: LEVOFLOXACIN INJ 750 MG in PREMIX 1 EACH IV STA (10:06)
[2018-04-13] MEDS ORDERED: FUROSEMIDE 100 MG/10 ML VIAL IV STA (10:06)
[2018-04-13] MEDS ORDERED: ALBUTEROL 2.5 MG/3 ML NEB RESP TX SCH (10:30)
[2018-04-13 11:59] LABS: Basophils # 0.1 10*3/uL (0.0-0.2); Hematocrit 35.3 VOL% (35.7-47.0); Hemoglobin 11.2 GM/DL (12.0-16.0); Immature Granulocytes Absolute 0.05 #; Lymphocytes # 63.1 10*3/uL (1.4-4.0); Lymphocytes % 54.2 % (21.3-54.2); Mean Corpuscular HGB Conc 31.7 GM/DL (32-36); Mean Corpuscular Hemoglobin 30 PG (27-34); Mean Corpuscular Volume 93.9 FL (87-102); Mean Platelet Volume 12.2 FL (9.6-12.0); Monocytes # 53.3 10*3/uL (0.11-0.8); Monocytes % 45.7 % (1.7-12.7); NRBC # 0.03 10*3/uL; Neutrophils # 0.1 10*3/uL (1.4-7.4); Neutrophils % 0.1 % (38.7-73.9); Platelet Count 172 T/CUMM (130-400); Red Blood Count 3.76 MC/CUMM (3.8-5.5); Red Cell Distribution Width 19.7 % (9.3-17.3)
[2018-04-13 12:04] LABS: White Blood Count 116.6 T/CUMM (4-12)
[2018-04-13 12:09] LABS: INR 1.1; Partial Thromboplastin Time 26.6 SECS (0-40)
[2018-04-13 12:15] LABS: Apearance,Urine CLEAR (Clear); Bacteria,Urine Moderate /HPF (Few); Bilirubin,Urine Negative (Negative); Blood, Urine Small mg/dL (Negative); Glucose,Urine (UA) Negative (Negative); Ketones,Urine Negative (Negative); Mucus,Urine Occasional /LPF (Occasional); Nitrite,Urine Negative (Negative); Protein,Urine 100 MG/DL; RBC,Urine 2 /HPF (0-4); Urine Color Yellow (Yellow); Urine Urobilinogen < 2.0 EU/DL (0.2-1.0); WBC,Urine 2 /HPF (0-6)
[2018-04-13 12:23] LABS: Alanine Aminotransferase 33 U/L (13-56); Albumin 3.6 G/DL (3.4-5.0); Alkaline Phosphatase 116 U/L (45-117); Aspartate Amino Transferase 30 U/L (0-37); Blood Urea Nitrogen 32 MG/DL (7-18); Calcium 8.8 MG/DL (8.5-10.1); Glucose 125 MG/DL (74-106); Osmolality,Calculated 284.5 MOS/KG (273-304); Potassium 4.5 MMOL/L (3.5-5.1); Sodium 139 MMOL/L (136-145); Total Protein 7.2 G/DL (6.4-8.3)
[2018-04-13 12:28] LABS: Atypical Lymphocytes 1+; Hypochromasia 1+; Lymphocytes 94 % (20-55); Platelet Estimate Normal; Smudge Cells Moderate; Total Cells Counted 100
[2018-04-13 12:29] LABS: Microcytosis Slight
[2018-04-13] MEDS ORDERED: ALBUTEROL/IPRATROPIUM 3 ML NEB RESP TX PRN (12:37)
[2018-04-13] MEDS ORDERED: methylPREDNISolone SOD SUC 125 MG/2 ML VIAL IV SCH (13:00)
[2018-04-13] MEDS: LEVOFLOXACIN INJ 750 MG in PREMIX 1 EACH IV SCH (13:43)
[2018-04-13] MEDS ORDERED: FUROSEMIDE 40 MG/4 ML VIAL IV SCH (16:00)
[2018-04-13] MEDS: POTASSIUM CHLORIDE 10 MEQ TABLET PO SCH (20:54)
[2018-04-13] MEDS: BUDESONIDE/FORMOTEROL 160-4.5 INHALER 6 GM INH SCH (20:54)
[2018-04-13] MEDS ORDERED: EZETIMIBE 10 MG TABLET PO SCH (21:00)
[2018-04-14 05:52] LABS: Hemoglobin 9.6 GM/DL (12.0-16.0); Immature Granulocytes % 0.1 %; Immature Granulocytes Absolute 0.05 #; Lymphocytes # 35.9 10*3/uL (1.4-4.0); Mean Corpuscular Hemoglobin 30 PG (27-34); Mean Corpuscular Volume 95.4 FL (87-102); Mean Platelet Volume 12.7 FL (9.6-12.0); Monocytes # 35.8 10*3/uL (0.11-0.8); Monocytes % 49.9 % (1.7-12.7); NRBC # 0.02 10*3/uL; Neutrophils # 0.1 10*3/uL (1.4-7.4); Platelet Count 132 T/CUMM (130-400); Red Blood Count 3.25 MC/CUMM (3.8-5.5); Red Cell Distribution Width 19.2 % (9.3-17.3)
[2018-04-14 06:02] LABS: White Blood Count 71.8 T/CUMM (4-12)
[2018-04-14 06:21] LABS: Albumin 2.9 G/DL (3.4-5.0); Bilirubin,Total 1.3 MG/DL (0.2-1.0); Calcium 8.9 MG/DL (8.5-10.1); Osmolality,Calculated 287.5 MOS/KG (273-304); Potassium 4.7 MMOL/L (3.5-5.1); Total Protein 6.3 G/DL (6.4-8.3)
[2018-04-14 07:32] LABS: Atypical Lymphocytes Moderate; Hypochromasia Slight; Lymphocytes 55 % (20-55); Platelet Estimate Decreased; Total Cells Counted 100
[2018-04-14] MEDS: FEXOFENADINE 180 MG TABLET PO SCH (08:32)
[2018-04-14] MEDS: POTASSIUM CHLORIDE 10 MEQ TABLET PO SCH ×2 (08:32→21:53)
[2018-04-14] MEDS: PANTOPRAZOLE 40 MG TABLET PO SCH (08:32)
[2018-04-14] MEDS: MULTIVITAMIN (CENTRUM) TABLET PO SCH (08:32)
[2018-04-14] MEDS: FUROSEMIDE 40 MG/4 ML VIAL IV SCH ×2 (08:32→15:05)
[2018-04-14] MEDS: LOSARTAN 50 MG TABLET PO SCH (08:32)
[2018-04-14] MEDS: ENOXAPARIN 40 MG/0.4 ML SYRINGE SUBCUT SCH (08:32)
[2018-04-14] MEDS: DOCUSATE SODIUM 100 MG CAPSULE PO SCH (08:32)
[2018-04-14] MEDS: ASPIRIN CHEW 81 MG TABLET PO SCH (08:33)
[2018-04-14] MEDS: FLUTICASONE 50 MCG NASAL SPRAY 16 GM BOTTLE BOTH NARES SCH (08:33)
[2018-04-14] MEDS: MAGNESIUM CHLORIDE 64 MG TABLET PO SCH (08:33)
[2018-04-14] MEDS: FILGRASTIM-SNDZ 300 MCG/0.5 ML SYRINGE SUBCUT SCH (08:34)
[2018-04-14] MEDS: BUDESONIDE/FORMOTEROL 160-4.5 INHALER 6 GM INH SCH ×2 (08:34→21:53)
[2018-04-14] MEDS ORDERED: METOPROLOL TARTRATE 25 MG TABLET PO SCH (09:00)
[2018-04-14] MEDS ORDERED: BUMETANIDE 1 MG TABLET PO SCH (09:00)
[2018-04-14] MEDS ORDERED: METOPROLOL TARTRATE 25 MG TABLET PO ONE (16:08)
[2018-04-14] MEDS: METOPROLOL TARTRATE 25 MG TABLET PO SCH (21:53)
[2018-04-15 06:02] LABS: Hematocrit 30.8 VOL% (35.7-47.0); Hemoglobin 9.6 GM/DL (12.0-16.0); Immature Granulocytes % 0.1 %; Immature Granulocytes Absolute 0.08 #; Lymphocytes # 39.1 10*3/uL (1.4-4.0); Lymphocytes % 42.1 % (21.3-54.2); Mean Corpuscular HGB Conc 31.2 GM/DL (32-36); Mean Corpuscular Hemoglobin 30 PG (27-34); Mean Corpuscular Volume 94.8 FL (87-102); Mean Platelet Volume 12.7 FL (9.6-12.0); Monocytes # 53.6 10*3/uL (0.11-0.8); Monocytes % 57.7 % (1.7-12.7); NRBC # 0.02 10*3/uL; Neutrophils % 0.1 % (38.7-73.9); Platelet Count 131 T/CUMM (130-400); Red Blood Count 3.25 MC/CUMM (3.8-5.5); Red Cell Distribution Width 18.6 % (9.3-17.3)
[2018-04-15 06:21] LABS: White Blood Count 92.9 T/CUMM (4-12)
[2018-04-15 06:23] LABS: Albumin 2.7 G/DL (3.4-5.0); Calcium 8.6 MG/DL (8.5-10.1); Potassium 4.1 MMOL/L (3.5-5.1); Total Protein 6.2 G/DL (6.4-8.3)
[2018-04-15 06:54] LABS: Atypical Lymphocytes Moderate; Hypochromasia 1+; Lymphocytes 76 % (20-55); Macrocytosis 1+; Platelet Estimate Decreased; Promyelocytes 5 %; Total Cells Counted 100
[2018-04-15] MEDS: FUROSEMIDE 40 MG/4 ML VIAL IV SCH (08:32)
[2018-04-15] MEDS: MULTIVITAMIN (CENTRUM) TABLET PO SCH (08:33)
[2018-04-15] MEDS: PANTOPRAZOLE 40 MG TABLET PO SCH (08:33)
[2018-04-15] MEDS: MAGNESIUM CHLORIDE 64 MG TABLET PO SCH (08:33)
[2018-04-15] MEDS: LOSARTAN 50 MG TABLET PO SCH (08:33)
[2018-04-15] MEDS: POTASSIUM CHLORIDE 10 MEQ TABLET PO SCH ×2 (08:33→21:41)
[2018-04-15] MEDS: ENOXAPARIN 40 MG/0.4 ML SYRINGE SUBCUT SCH (08:33)
[2018-04-15] MEDS: FILGRASTIM-SNDZ 300 MCG/0.5 ML SYRINGE SUBCUT SCH (08:33)
[2018-04-15] MEDS: METOPROLOL TARTRATE 25 MG TABLET PO SCH ×2 (08:33→21:41)
[2018-04-15] MEDS: FEXOFENADINE 180 MG TABLET PO SCH (08:33)
[2018-04-15] MEDS: FLUTICASONE 50 MCG NASAL SPRAY 16 GM BOTTLE BOTH NARES SCH (08:34)
[2018-04-15] MEDS: ASPIRIN CHEW 81 MG TABLET PO SCH (08:34)
[2018-04-15] MEDS: BUDESONIDE/FORMOTEROL 160-4.5 INHALER 6 GM INH SCH ×2 (08:34→21:41)
[2018-04-15] MEDS: DOCUSATE SODIUM 100 MG CAPSULE PO SCH (08:35)
[2018-04-15] MEDS: ALBUTEROL/IPRATROPIUM 3 ML NEB RESP TX PRN (11:24)
[2018-04-15] MEDS: LEVOFLOXACIN INJ 750 MG in PREMIX 1 EACH IV SCH (13:38)
[2018-04-15] MEDS: ACETAMINOPHEN 325 MG TABLET PO PRN (16:45)
[2018-04-15] MEDS: CLINDAMYCIN INJ 900 MG in PREMIX 1 EACH IV SCH (17:18)
[2018-04-15] MEDS: VORICONAZOLE 200 MG TABLET PO SCH ×2 (17:18→21:41)
[2018-04-15] MEDS ORDERED: ALBUTEROL/IPRATROPIUM 3 ML NEB RESP TX SCH (21:00)
[2018-04-16] MEDS: CLINDAMYCIN INJ 900 MG in PREMIX 1 EACH IV SCH ×3 (01:55→16:42)
[2018-04-16 05:10] LABS: Hematocrit 29.1 VOL% (35.7-47.0); Hemoglobin 8.8 GM/DL (12.0-16.0); Immature Granulocytes % 0.1 %; Immature Granulocytes Absolute 0.05 #; Lymphocytes # 37.4 10*3/uL (1.4-4.0); Lymphocytes % 49.7 % (21.3-54.2); Mean Corpuscular HGB Conc 30.2 GM/DL (32-36); Mean Corpuscular Hemoglobin 29 PG (27-34); Mean Corpuscular Volume 95.1 FL (87-102); Monocytes # 37.6 10*3/uL (0.11-0.8); Monocytes % 50.1 % (1.7-12.7); Neutrophils # 0.1 10*3/uL (1.4-7.4); Neutrophils % 0.1 % (38.7-73.9); Platelet Count 120 T/CUMM (130-400); Red Blood Count 3.06 MC/CUMM (3.8-5.5); Red Cell Distribution Width 18.3 % (9.3-17.3)
[2018-04-16 05:14] LABS: White Blood Count 75.1 T/CUMM (4-12)
[2018-04-16 05:47] LABS: Lymphocytes 86 % (20-55); Total Cells Counted 100
[2018-04-16 05:48] LABS: Atypical Lymphocytes Moderate
[2018-04-16 05:49] LABS: Hypochromasia 1+; Macrocytosis 1+; Ovalocytes Slight; Platelet Estimate Adequate; Smudge Cells Few
[2018-04-16 05:52] LABS: Albumin 2.4 G/DL (3.4-5.0); Bilirubin,Total 1.3 MG/DL (0.2-1.0); Calcium 8.5 MG/DL (8.5-10.1); Osmolality,Calculated 284.4 MOS/KG (273-304); Potassium 4.3 MMOL/L (3.5-5.1); Total Protein 5.9 G/DL (6.4-8.3)
[2018-04-16] MEDS: ALBUTEROL/IPRATROPIUM 3 ML NEB RESP TX SCH ×2 (07:05→19:48)
[2018-04-16] MEDS: ONDANSETRON 4 MG/2 ML VIAL IV PRN (08:44)
[2018-04-16] MEDS: METOPROLOL TARTRATE 25 MG TABLET PO SCH ×2 (08:50→20:52)
[2018-04-16] MEDS: PANTOPRAZOLE 40 MG TABLET PO SCH (08:50)
[2018-04-16] MEDS: ASPIRIN CHEW 81 MG TABLET PO SCH (08:50)
[2018-04-16] MEDS: LOSARTAN 50 MG TABLET PO SCH (08:50)
[2018-04-16] MEDS: FEXOFENADINE 180 MG TABLET PO SCH (08:50)
[2018-04-16] MEDS: VORICONAZOLE 200 MG TABLET PO SCH ×2 (08:50→20:50)
[2018-04-16] MEDS: MULTIVITAMIN (CENTRUM) TABLET PO SCH (08:50)
[2018-04-16] MEDS: POTASSIUM CHLORIDE 10 MEQ TABLET PO SCH ×2 (08:50→20:50)
[2018-04-16] MEDS: MAGNESIUM CHLORIDE 64 MG TABLET PO SCH (08:50)
[2018-04-16] MEDS: ENOXAPARIN 40 MG/0.4 ML SYRINGE SUBCUT SCH (08:51)
[2018-04-16] MEDS: FILGRASTIM-SNDZ 300 MCG/0.5 ML SYRINGE SUBCUT SCH (08:51)
[2018-04-16] MEDS: DOCUSATE SODIUM 100 MG CAPSULE PO SCH (08:51)
[2018-04-16] MEDS: BUDESONIDE/FORMOTEROL 160-4.5 INHALER 6 GM INH SCH ×2 (08:51→20:51)
[2018-04-16] MEDS: FLUTICASONE 50 MCG NASAL SPRAY 16 GM BOTTLE BOTH NARES SCH (08:54)
[2018-04-16] MEDS ORDERED: FUROSEMIDE 40 MG/4 ML VIAL IV SCH (14:00)
[2018-04-16] MEDS: cefTAZidime 1,000 MG in SYRINGE 1 EACH IV SCH (17:22)
[2018-04-16] MEDS: ACETAMINOPHEN 325 MG TABLET PO PRN (20:49)
[2018-04-17] MEDS: CLINDAMYCIN INJ 900 MG in PREMIX 1 EACH IV SCH (01:48)
[2018-04-17] MEDS: cefTAZidime 1,000 MG in SYRINGE 1 EACH IV SCH (05:49)
[2018-04-17 06:01] LABS: Eosinophils % 0.1 % (0.00-10.9); Hematocrit 26.9 VOL% (35.7-47.0); Hemoglobin 8.5 GM/DL (12.0-16.0); Immature Granulocytes % 0.1 %; Immature Granulocytes Absolute 0.05 #; Lymphocytes # 23.5 10*3/uL (1.4-4.0); Lymphocytes % 52.6 % (21.3-54.2); Mean Corpuscular HGB Conc 31.6 GM/DL (32-36); Mean Corpuscular Hemoglobin 30 PG (27-34); Mean Corpuscular Volume 94.7 FL (87-102); Mean Platelet Volume 13.4 FL (9.6-12.0); Monocytes # 20.9 10*3/uL (0.11-0.8); Monocytes % 46.9 % (1.7-12.7); NRBC # 0.02 10*3/uL; Neutrophils # 0.1 10*3/uL (1.4-7.4); Neutrophils % 0.3 % (38.7-73.9); Platelet Count 97 T/CUMM (130-400); Red Blood Count 2.84 MC/CUMM (3.8-5.5); Red Cell Distribution Width 18.7 % (9.3-17.3)
[2018-04-17 06:03] LABS: White Blood Count 44.6 T/CUMM (4-12)
[2018-04-17 06:30] LABS: Albumin 2.2 G/DL (3.4-5.0); Calcium 8.3 MG/DL (8.5-10.1); Osmolality,Calculated 290.2 MOS/KG (273-304); Potassium 4.9 MMOL/L (3.5-5.1); Total Protein 5.6 G/DL (6.4-8.3)
[2018-04-17 06:36] LABS: Lymphocytes 92 % (20-55); Total Cells Counted 100
[2018-04-17 06:37] LABS: Atypical Lymphocytes Moderate; Hypochromasia 1+; Polychromasia Slight; Smudge Cells Few
[2018-04-17 06:38] LABS: Microcytosis 1+; Ovalocytes Slight
[2018-04-17 06:39] LABS: Platelet Estimate Decreased
[2018-04-17] MEDS: ALBUTEROL/IPRATROPIUM 3 ML NEB RESP TX SCH ×2 (07:05→19:50)
[2018-04-17] MEDS: POTASSIUM CHLORIDE 10 MEQ TABLET PO SCH (09:15)
[2018-04-17] MEDS: MAGNESIUM CHLORIDE 64 MG TABLET PO SCH (09:15)
[2018-04-17] MEDS: MULTIVITAMIN (CENTRUM) TABLET PO SCH (09:28)
[2018-04-17] MEDS: ASPIRIN CHEW 81 MG TABLET PO SCH (09:28)
[2018-04-17] MEDS: FILGRASTIM-SNDZ 300 MCG/0.5 ML SYRINGE SUBCUT SCH (09:28)
[2018-04-17] MEDS: ENOXAPARIN 40 MG/0.4 ML SYRINGE SUBCUT SCH (09:28)
[2018-04-17] MEDS: VORICONAZOLE 200 MG TABLET PO SCH ×2 (09:28→20:36)
[2018-04-17] MEDS: FEXOFENADINE 180 MG TABLET PO SCH (09:28)
[2018-04-17] MEDS: MEROPENEM 1,000 MG in SYRINGE 1 EACH IV SCH ×2 (09:33→20:36)
[2018-04-17] MEDS: DEXTROSE 5% NACL 0.45% 1,000 ML IV SCH (09:33)
[2018-04-17] MEDS: DOCUSATE SODIUM 100 MG CAPSULE PO SCH (09:33)
[2018-04-17] MEDS: FLUTICASONE 50 MCG NASAL SPRAY 16 GM BOTTLE BOTH NARES SCH (09:35)
[2018-04-17] MEDS: PANTOPRAZOLE 40 MG TABLET PO SCH (09:35)
[2018-04-17] MEDS: BUDESONIDE/FORMOTEROL 160-4.5 INHALER 6 GM INH SCH ×2 (09:35→20:43)
[2018-04-17] MEDS: METOPROLOL TARTRATE 25 MG TABLET PO SCH (09:35)
[2018-04-17] MEDS: ACETAMINOPHEN 325 MG TABLET PO PRN (21:05)
[2018-04-18 05:14] LABS: Hematocrit 27.2 VOL% (35.7-47.0); Hemoglobin 8.3 GM/DL (12.0-16.0); Immature Granulocytes % 0.1 %; Immature Granulocytes Absolute 0.02 #; Lymphocytes # 18.4 10*3/uL (1.4-4.0); Lymphocytes % 54.8 % (21.3-54.2); Mean Corpuscular HGB Conc 30.5 GM/DL (32-36); Mean Corpuscular Hemoglobin 29 PG (27-34); Mean Corpuscular Volume 96.1 FL (87-102); Mean Platelet Volume 13.5 FL (9.6-12.0); Monocytes % 44.8 % (1.7-12.7); Neutrophils # 0.1 10*3/uL (1.4-7.4); Neutrophils % 0.3 % (38.7-73.9); Platelet Count 108 T/CUMM (130-400); Red Blood Count 2.83 MC/CUMM (3.8-5.5); Red Cell Distribution Width 18.3 % (9.3-17.3); White Blood Count 33.5 T/CUMM (4-12)
[2018-04-18 05:45] LABS: Lymphocytes 76 % (20-55); Total Cells Counted 100
[2018-04-18 05:46] LABS: Burr Cells Slight; Hypochromasia 1+; Ovalocytes Slight; Platelet Estimate Decreased
[2018-04-18 05:47] LABS: Atypical Lymphocytes Moderate; Microcytosis Slight; Smudge Cells Few
[2018-04-18 06:10] LABS: Albumin 2.2 G/DL (3.4-5.0); Calcium 8.1 MG/DL (8.5-10.1); Osmolality,Calculated 297.2 MOS/KG (273-304); Potassium 4.6 MMOL/L (3.5-5.1); Total Protein 5.6 G/DL (6.4-8.3)
[2018-04-18] MEDS ORDERED: SODIUM CHLORIDE 0.9% 1,000 ML IV PRN (07:31)
[2018-04-18] MEDS: ALBUTEROL/IPRATROPIUM 3 ML NEB RESP TX SCH ×2 (08:00→20:26)
[2018-04-18] MEDS: DEXTROSE 5% NACL 0.45% 1,000 ML IV SCH ×3 (08:53→20:40)
[2018-04-18] MEDS: VORICONAZOLE 200 MG TABLET PO SCH ×2 (08:54→20:14)
[2018-04-18] MEDS: FILGRASTIM-SNDZ 300 MCG/0.5 ML SYRINGE SUBCUT SCH (08:54)
[2018-04-18] MEDS: FEXOFENADINE 180 MG TABLET PO SCH (08:54)
[2018-04-18] MEDS: MULTIVITAMIN (CENTRUM) TABLET PO SCH (08:54)
[2018-04-18] MEDS: DOCUSATE SODIUM 100 MG CAPSULE PO SCH (08:54)
[2018-04-18] MEDS: PANTOPRAZOLE 40 MG TABLET PO SCH (08:54)
[2018-04-18] MEDS: MEROPENEM 1,000 MG in SYRINGE 1 EACH IV SCH ×3 (08:54→20:41)
[2018-04-18] MEDS: ENOXAPARIN 40 MG/0.4 ML SYRINGE SUBCUT SCH (08:54)
[2018-04-18] MEDS: ASPIRIN CHEW 81 MG TABLET PO SCH (08:54)
[2018-04-18] MEDS: FLUTICASONE 50 MCG NASAL SPRAY 16 GM BOTTLE BOTH NARES SCH (08:55)
[2018-04-18] MEDS: BUDESONIDE/FORMOTEROL 160-4.5 INHALER 6 GM INH SCH ×3 (09:00→20:41)
[2018-04-18] MEDS: METOPROLOL SUCCINATE XL 25 MG TABLET PO SCH (14:35)
[2018-04-18] MEDS: ACETAMINOPHEN 325 MG TABLET PO PRN (15:36)
[2018-04-18] MEDS: ASCORBIC ACID 500 MG TABLET PO SCH (20:14)
[2018-04-19 06:22] LABS: Basophils # 0.1 10*3/uL (0.0-0.2); Basophils % 0.1 % (0.0-0.8); Hemoglobin 11.3 GM/DL (12.0-16.0); Immature Granulocytes % 0.1 %; Immature Granulocytes Absolute 0.04 #; Lymphocytes % 50.7 % (21.3-54.2); Mean Corpuscular HGB Conc 32.3 GM/DL (32-36); Mean Corpuscular Hemoglobin 30 PG (27-34); Mean Corpuscular Volume 91.4 FL (87-102); Mean Platelet Volume 13.6 FL (9.6-12.0); Monocytes # 24.1 10*3/uL (0.11-0.8); Monocytes % 48.9 % (1.7-12.7); NRBC # 0.02 10*3/uL; Neutrophils # 0.1 10*3/uL (1.4-7.4); Neutrophils % 0.2 % (38.7-73.9); Platelet Count 137 T/CUMM (130-400); Red Blood Count 3.83 MC/CUMM (3.8-5.5); Red Cell Distribution Width 18.6 % (9.3-17.3)
[2018-04-19 06:31] LABS: White Blood Count 49.2 T/CUMM (4-12)
[2018-04-19 06:46] LABS: Atypical Lymphocytes Moderate; Hypochromasia 1+; Lymphocytes 90 % (20-55); Ovalocytes Slight; Platelet Estimate Normal; Smudge Cells Few; Total Cells Counted 100
[2018-04-19 06:47] LABS: Microcytosis Slight
[2018-04-19 07:02] LABS: Albumin 2.3 G/DL (3.4-5.0); Calcium 8.6 MG/DL (8.5-10.1); Osmolality,Calculated 294.4 MOS/KG (273-304); Potassium 4.5 MMOL/L (3.5-5.1); Total Protein 6.1 G/DL (6.4-8.3)
[2018-04-19] MEDS: ALBUTEROL/IPRATROPIUM 3 ML NEB RESP TX SCH ×2 (07:11→19:12)
[2018-04-19] MEDS ORDERED: OXYMETAZOLINE 0.05% NASAL SPRAY 15 ML BOTTLE BOTH NARES PRN (08:50)
[2018-04-19] MEDS: MEROPENEM 1,000 MG in SYRINGE 1 EACH IV SCH ×2 (09:25→20:08)
[2018-04-19] MEDS: methylPREDNISolone SOD SUC 40 MG/1 ML VIAL IV SCH ×2 (09:26→17:14)
[2018-04-19] MEDS: ENOXAPARIN 30 MG/0.3 ML SYRINGE SUBCUT SCH (10:02)
[2018-04-19] MEDS: MULTIVITAMIN (CENTRUM) TABLET PO SCH (10:03)
[2018-04-19] MEDS: ASPIRIN CHEW 81 MG TABLET PO SCH (10:03)
[2018-04-19] MEDS: FEXOFENADINE 180 MG TABLET PO SCH (10:03)
[2018-04-19] MEDS: DOCUSATE SODIUM 100 MG CAPSULE PO SCH (10:04)
[2018-04-19] MEDS: PANTOPRAZOLE 40 MG TABLET PO SCH (10:04)
[2018-04-19] MEDS: FLUTICASONE 50 MCG NASAL SPRAY 16 GM BOTTLE BOTH NARES SCH (10:05)
[2018-04-19] MEDS: BUDESONIDE/FORMOTEROL 160-4.5 INHALER 6 GM INH SCH ×2 (10:05→20:06)
[2018-04-19] MEDS: ASCORBIC ACID 500 MG TABLET PO SCH ×2 (10:06→20:06)
[2018-04-19] MEDS: VORICONAZOLE 200 MG TABLET PO SCH ×2 (10:06→20:06)
[2018-04-19] MEDS: METOPROLOL SUCCINATE XL 25 MG TABLET PO SCH (10:06)
[2018-04-19] MEDS: FILGRASTIM-SNDZ 480 MCG/0.8 ML SYRINGE SUBCUT SCH (10:07)
[2018-04-19] MEDS ORDERED: TEMAZEPAM 7.5 MG CAPSULE PO PRN (18:59)
[2018-04-19] MEDS: ALPRAZolam 0.25 MG TABLET PO PRN (22:13)
[2018-04-20] MEDS: methylPREDNISolone SOD SUC 40 MG/1 ML VIAL IV SCH ×3 (00:21→17:52)
[2018-04-20 05:21] LABS: Basophils # 0.1 10*3/uL (0.0-0.2); Basophils % 0.1 % (0.0-0.8); Hematocrit 37.2 VOL% (35.7-47.0); Hemoglobin 12.2 GM/DL (12.0-16.0); Immature Granulocytes Absolute 0.02 #; Lymphocytes # 36.1 10*3/uL (1.4-4.0); Lymphocytes % 64.2 % (21.3-54.2); Mean Corpuscular HGB Conc 32.8 GM/DL (32-36); Mean Corpuscular Hemoglobin 30 PG (27-34); Mean Corpuscular Volume 90.7 FL (87-102); Mean Platelet Volume 13.1 FL (9.6-12.0); Monocytes # 19.8 10*3/uL (0.11-0.8); Monocytes % 35.1 % (1.7-12.7); NRBC # 0.02 10*3/uL; Neutrophils # 0.3 10*3/uL (1.4-7.4); Neutrophils % 0.6 % (38.7-73.9); Platelet Count 158 T/CUMM (130-400); Red Cell Distribution Width 19.1 % (9.3-17.3)
[2018-04-20 05:23] LABS: White Blood Count 56.3 T/CUMM (4-12)
[2018-04-20 05:54] LABS: Albumin 2.4 G/DL (3.4-5.0); Bilirubin,Total 0.7 MG/DL (0.2-1.0); Calcium 9.1 MG/DL (8.5-10.1); Osmolality,Calculated 308.8 MOS/KG (273-304); Potassium 5.5 MMOL/L (3.5-5.1); Total Protein 6.2 G/DL (6.4-8.3)
[2018-04-20 06:53] LABS: Lymphocytes 95 % (20-55); Macrocytosis 2+; Platelet Estimate Adequate; Polychromasia Slight; Promyelocytes 1 %; Target Cells Slight; Total Cells Counted 100
[2018-04-20] MEDS: ALBUTEROL/IPRATROPIUM 3 ML NEB RESP TX SCH ×2 (07:14→20:31)
[2018-04-20] MEDS: ENOXAPARIN 30 MG/0.3 ML SYRINGE SUBCUT SCH (09:28)
[2018-04-20] MEDS: ASPIRIN CHEW 81 MG TABLET PO SCH (09:29)
[2018-04-20] MEDS: MULTIVITAMIN (CENTRUM) TABLET PO SCH (09:29)
[2018-04-20] MEDS: FEXOFENADINE 180 MG TABLET PO SCH (09:29)
[2018-04-20] MEDS: DOCUSATE SODIUM 100 MG CAPSULE PO SCH (09:30)
[2018-04-20] MEDS: FLUTICASONE 50 MCG NASAL SPRAY 16 GM BOTTLE BOTH NARES SCH (09:30)
[2018-04-20] MEDS: BUDESONIDE/FORMOTEROL 160-4.5 INHALER 6 GM INH SCH ×2 (09:31→21:04)
[2018-04-20] MEDS: VORICONAZOLE 200 MG TABLET PO SCH ×2 (09:32→21:04)
[2018-04-20] MEDS: ASCORBIC ACID 500 MG TABLET PO SCH ×2 (09:33→21:04)
[2018-04-20] MEDS: FILGRASTIM-SNDZ 480 MCG/0.8 ML SYRINGE SUBCUT SCH (09:33)
[2018-04-20] MEDS: PANTOPRAZOLE 40 MG TABLET PO SCH (09:34)
[2018-04-20] MEDS: METOPROLOL SUCCINATE XL 25 MG TABLET PO SCH (09:35)
[2018-04-20] MEDS: MEROPENEM 1,000 MG in SYRINGE 1 EACH IV SCH ×2 (10:28→21:06)
[2018-04-21] MEDS: methylPREDNISolone SOD SUC 40 MG/1 ML VIAL IV SCH ×3 (01:28→21:22)
[2018-04-21 06:49] LABS: Basophils # 0.1 10*3/uL (0.0-0.2); Basophils % 0.1 % (0.0-0.8); Hematocrit 39.1 VOL% (35.7-47.0); Hemoglobin 12.2 GM/DL (12.0-16.0); Immature Granulocytes % 0.1 %; Immature Granulocytes Absolute 0.13 #; Lymphocytes # 62.1 10*3/uL (1.4-4.0); Lymphocytes % 55.9 % (21.3-54.2); Mean Corpuscular HGB Conc 31.2 GM/DL (32-36); Mean Corpuscular Hemoglobin 29 PG (27-34); Mean Corpuscular Volume 93.5 FL (87-102); Mean Platelet Volume 13.5 FL (9.6-12.0); Monocytes # 47.8 10*3/uL (0.11-0.8); Monocytes % 43.1 % (1.7-12.7); NRBC # 0.04 10*3/uL; Neutrophils # 0.9 10*3/uL (1.4-7.4); Neutrophils % 0.8 % (38.7-73.9); Platelet Count 229 T/CUMM (130-400); Red Blood Count 4.18 MC/CUMM (3.8-5.5); Red Cell Distribution Width 19.8 % (9.3-17.3)
[2018-04-21] MEDS: ALBUTEROL/IPRATROPIUM 3 ML NEB RESP TX SCH ×2 (06:58→19:45)
[2018-04-21 07:23] LABS: Burr Cells Slight; Hypochromasia Slight; Lymphocytes 91 % (20-55); Ovalocytes Slight; Platelet Estimate Adequate; Segmented Neutrophils 2 % (50-85); Smudge Cells Moderate; Total Cells Counted 100
[2018-04-21 07:24] LABS: Macrocytosis Slight
[2018-04-21 08:32] LABS: Albumin 2.7 G/DL (3.4-5.0); Bilirubin,Total 0.8 MG/DL (0.2-1.0); Calcium 9.7 MG/DL (8.5-10.1); Osmolality,Calculated 318.4 MOS/KG (273-304); Potassium 5.8 MMOL/L (3.5-5.1); Total Protein 6.4 G/DL (6.4-8.3)
[2018-04-21] MEDS: MEROPENEM 1,000 MG in SYRINGE 1 EACH IV SCH ×2 (09:31→21:24)
[2018-04-21] MEDS: ASPIRIN CHEW 81 MG TABLET PO SCH (09:32)
[2018-04-21] MEDS: FILGRASTIM-SNDZ 480 MCG/0.8 ML SYRINGE SUBCUT SCH (09:32)
[2018-04-21] MEDS: METOPROLOL SUCCINATE XL 25 MG TABLET PO SCH (09:32)
[2018-04-21] MEDS: ENOXAPARIN 30 MG/0.3 ML SYRINGE SUBCUT SCH (09:32)
[2018-04-21] MEDS: PANTOPRAZOLE 40 MG TABLET PO SCH (09:32)
[2018-04-21] MEDS: FEXOFENADINE 180 MG TABLET PO SCH (09:32)
[2018-04-21] MEDS: VORICONAZOLE 200 MG TABLET PO SCH ×2 (09:32→21:19)
[2018-04-21] MEDS: MULTIVITAMIN (CENTRUM) TABLET PO SCH (09:33)
[2018-04-21] MEDS: FLUTICASONE 50 MCG NASAL SPRAY 16 GM BOTTLE BOTH NARES SCH (09:33)
[2018-04-21] MEDS: BUDESONIDE/FORMOTEROL 160-4.5 INHALER 6 GM INH SCH ×2 (09:33→21:20)
[2018-04-21] MEDS: ASCORBIC ACID 500 MG TABLET PO SCH ×2 (09:33→21:19)
[2018-04-21] MEDS: DOCUSATE SODIUM 100 MG CAPSULE PO SCH (09:33)
[2018-04-21] MEDS ORDERED: INSULIN REGULAR 100 UNIT/ML IV ONE (09:45)
[2018-04-21] MEDS ORDERED: GLUCAGON 1 MG VIAL IM PRN (09:50)
[2018-04-21] MEDS ORDERED: DEXTROSE 50% 25 GM/50 ML VIAL IV PRN (09:50)
[2018-04-21] MEDS ORDERED: methylPREDNISolone SOD SUC 40 MG/1 ML VIAL IV SCH (10:00)
[2018-04-21] MEDS: INSULIN REGULAR 100 UNIT/ML SUBCUT SCH ×3 (12:40→21:27)
[2018-04-22 03:57] LABS: Basophils # 0.2 10*3/uL (0.0-0.2); Basophils % 0.1 % (0.0-0.8); Hematocrit 39.4 VOL% (35.7-47.0); Hemoglobin 12.1 GM/DL (12.0-16.0); Immature Granulocytes % 0.2 %; Immature Granulocytes Absolute 0.36 #; Lymphocytes # 88.3 10*3/uL (1.4-4.0); Lymphocytes % 61.2 % (21.3-54.2); Mean Corpuscular HGB Conc 30.7 GM/DL (32-36); Mean Corpuscular Hemoglobin 29 PG (27-34); Mean Platelet Volume 13.5 FL (9.6-12.0); Monocytes # 53.8 10*3/uL (0.11-0.8); Monocytes % 37.3 % (1.7-12.7); NRBC # 0.13 10*3/uL; Neutrophils # 1.7 10*3/uL (1.4-7.4); Neutrophils % 1.2 % (38.7-73.9); Platelet Count 206 T/CUMM (130-400); Red Blood Count 4.19 MC/CUMM (3.8-5.5); Red Cell Distribution Width 19.2 % (9.3-17.3)
[2018-04-22 04:06] LABS: White Blood Count 144.3 T/CUMM (4-12)
[2018-04-22 04:25] LABS: Albumin 2.8 G/DL (3.4-5.0); Bilirubin,Total 0.9 MG/DL (0.2-1.0); Calcium 10.3 MG/DL (8.5-10.1); Potassium 5.8 MMOL/L (3.5-5.1); Total Protein 6.4 G/DL (6.4-8.3)
[2018-04-22 04:56] LABS: Band Neutrophils 1 % (0-10); Lymphocytes 88 % (20-55); Segmented Neutrophils 5 % (50-85); Total Cells Counted 100
[2018-04-22 04:57] LABS: Atypical Lymphocytes Moderate; Platelet Estimate Normal; Smudge Cells Few
[2018-04-22] MEDS: ALBUTEROL/IPRATROPIUM 3 ML NEB RESP TX SCH ×2 (08:19→19:44)
[2018-04-22] MEDS: methylPREDNISolone SOD SUC 40 MG/1 ML VIAL IV SCH ×2 (10:15→21:09)
[2018-04-22] MEDS: MEROPENEM 1,000 MG in SYRINGE 1 EACH IV SCH ×2 (10:15→21:04)
[2018-04-22] MEDS: ENOXAPARIN 30 MG/0.3 ML SYRINGE SUBCUT SCH (10:16)
[2018-04-22] MEDS: ASCORBIC ACID 500 MG TABLET PO SCH ×2 (10:16→21:03)
[2018-04-22] MEDS: INSULIN REGULAR 100 UNIT/ML SUBCUT SCH ×4 (10:16→21:04)
[2018-04-22] MEDS: FILGRASTIM-SNDZ 480 MCG/0.8 ML SYRINGE SUBCUT SCH (10:16)
[2018-04-22] MEDS: PANTOPRAZOLE 40 MG TABLET PO SCH (10:16)
[2018-04-22] MEDS: MULTIVITAMIN (CENTRUM) TABLET PO SCH (10:17)
[2018-04-22] MEDS: ASPIRIN CHEW 81 MG TABLET PO SCH (10:17)
[2018-04-22] MEDS: VORICONAZOLE 200 MG TABLET PO SCH ×2 (10:17→21:03)
[2018-04-22] MEDS: FEXOFENADINE 180 MG TABLET PO SCH (10:17)
[2018-04-22] MEDS: METOPROLOL SUCCINATE XL 25 MG TABLET PO SCH (10:17)
[2018-04-22] MEDS: FLUTICASONE 50 MCG NASAL SPRAY 16 GM BOTTLE BOTH NARES SCH (10:17)
[2018-04-22] MEDS: DOCUSATE SODIUM 100 MG CAPSULE PO SCH (10:17)
[2018-04-22] MEDS: BUDESONIDE/FORMOTEROL 160-4.5 INHALER 6 GM INH SCH ×2 (10:25→21:04)
[2018-04-22] MEDS: ALPRAZolam 0.25 MG TABLET PO PRN (21:03)
[2018-04-23 06:22] LABS: Basophils # 0.1 10*3/uL (0.0-0.2); Hematocrit 37.4 VOL% (35.7-47.0); Hemoglobin 12.2 GM/DL (12.0-16.0); Immature Granulocytes % 0.4 %; Immature Granulocytes Absolute 0.58 #; Lymphocytes # 96.2 10*3/uL (1.4-4.0); Lymphocytes % 59.3 % (21.3-54.2); Mean Corpuscular HGB Conc 32.6 GM/DL (32-36); Mean Corpuscular Hemoglobin 30 PG (27-34); Mean Corpuscular Volume 91.9 FL (87-102); Mean Platelet Volume 13.4 FL (9.6-12.0); Monocytes # 62.7 10*3/uL (0.11-0.8); Monocytes % 38.7 % (1.7-12.7); NRBC # 0.33 10*3/uL; Neutrophils # 2.5 10*3/uL (1.4-7.4); Neutrophils % 1.6 % (38.7-73.9); Platelet Count 194 T/CUMM (130-400); Red Blood Count 4.07 MC/CUMM (3.8-5.5); Red Cell Distribution Width 19.9 % (9.3-17.3)
[2018-04-23 06:33] LABS: White Blood Count 162.1 T/CUMM (4-12)
[2018-04-23 06:52] LABS: Bilirubin,Total 0.9 MG/DL (0.2-1.0); Calcium 9.6 MG/DL (8.5-10.1); Osmolality,Calculated 315.4 MOS/KG (273-304)
[2018-04-23] MEDS: ALBUTEROL/IPRATROPIUM 3 ML NEB RESP TX SCH ×2 (07:30→20:06)
[2018-04-23 07:58] LABS: Lymphocytes 76 % (20-55); Nucleated Red Blood Cells 1 (0-5); Segmented Neutrophils 2 % (50-85); Total Cells Counted 100
[2018-04-23 08:00] LABS: Atypical Lymphocytes Moderate; Hypochromasia 1+; Microcytosis 1+; Smudge Cells Few
[2018-04-23 08:01] LABS: Anisocytosis 1+; Platelet Estimate Adequate; Polychromasia Slight
[2018-04-23] MEDS: FEXOFENADINE 180 MG TABLET PO SCH (08:25)
[2018-04-23] MEDS: MULTIVITAMIN (CENTRUM) TABLET PO SCH (08:25)
[2018-04-23] MEDS: VORICONAZOLE 200 MG TABLET PO SCH ×2 (08:25→21:10)
[2018-04-23] MEDS: METOPROLOL SUCCINATE XL 25 MG TABLET PO SCH (08:25)
[2018-04-23] MEDS: ENOXAPARIN 30 MG/0.3 ML SYRINGE SUBCUT SCH (08:26)
[2018-04-23] MEDS: ASCORBIC ACID 500 MG TABLET PO SCH ×2 (08:26→21:09)
[2018-04-23] MEDS: INSULIN REGULAR 100 UNIT/ML SUBCUT SCH ×4 (08:26→21:16)
[2018-04-23] MEDS: ASPIRIN CHEW 81 MG TABLET PO SCH (08:26)
[2018-04-23] MEDS: DOCUSATE SODIUM 100 MG CAPSULE PO SCH (08:26)
[2018-04-23] MEDS: PANTOPRAZOLE 40 MG TABLET PO SCH (08:26)
[2018-04-23] MEDS: FLUTICASONE 50 MCG NASAL SPRAY 16 GM BOTTLE BOTH NARES SCH (08:27)
[2018-04-23] MEDS: BUDESONIDE/FORMOTEROL 160-4.5 INHALER 6 GM INH SCH ×2 (08:28→21:10)
[2018-04-23] MEDS: methylPREDNISolone SOD SUC 40 MG/1 ML VIAL IV SCH ×2 (08:32→21:10)
[2018-04-23] MEDS: MEROPENEM 1,000 MG in SYRINGE 1 EACH IV SCH ×2 (08:34→21:12)
[2018-04-23] MEDS: SODIUM POLYSTYRENE SULFATE 15 GM/60 ML BOTTLE PO SCH ×2 (09:09→21:18)
[2018-04-23] MEDS: DEXTROSE 5% NACL 0.45% 1,000 ML IV SCH (09:09)
[2018-04-23] MEDS: FILGRASTIM-SNDZ 480 MCG/0.8 ML SYRINGE SUBCUT SCH (09:10)
[2018-04-24 05:07] LABS: Basophils # 0.1 10*3/uL (0.0-0.2); Basophils % 0.1 % (0.0-0.8); Hematocrit 36.6 VOL% (35.7-47.0); Hemoglobin 11.3 GM/DL (12.0-16.0); Immature Granulocytes % 0.4 %; Immature Granulocytes Absolute 0.53 #; Lymphocytes # 80.1 10*3/uL (1.4-4.0); Lymphocytes % 59.4 % (21.3-54.2); Mean Corpuscular HGB Conc 30.9 GM/DL (32-36); Mean Corpuscular Hemoglobin 30 PG (27-34); Mean Corpuscular Volume 95.6 FL (87-102); Monocytes # 51.8 10*3/uL (0.11-0.8); Monocytes % 38.4 % (1.7-12.7); NRBC # 0.25 10*3/uL; Neutrophils # 2.4 10*3/uL (1.4-7.4); Neutrophils % 1.7 % (38.7-73.9); Platelet Count 133 T/CUMM (130-400); Red Blood Count 3.83 MC/CUMM (3.8-5.5); Red Cell Distribution Width 19.9 % (9.3-17.3)
[2018-04-24 05:35] LABS: Atypical Lymphocytes Moderate; Lymphocytes 81 % (20-55); Segmented Neutrophils 3 % (50-85); Total Cells Counted 100
[2018-04-24 05:36] LABS: Anisocytosis 1+; Hypochromasia 1+; Microcytosis 1+; Ovalocytes Slight; Platelet Estimate Adequate; Smudge Cells Few
[2018-04-24 05:41] LABS: Albumin 2.7 G/DL (3.4-5.0); Bilirubin,Total 0.6 MG/DL (0.2-1.0); Calcium 8.7 MG/DL (8.5-10.1); Total Protein 5.4 G/DL (6.4-8.3)
[2018-04-24 05:42] LABS: Osmolality,Calculated 321.3 MOS/KG (273-304); Potassium 5.5 MMOL/L (3.5-5.1)
[2018-04-24] MEDS: ALBUTEROL/IPRATROPIUM 3 ML NEB RESP TX SCH ×2 (07:15→20:06)
[2018-04-24] MEDS: ENOXAPARIN 30 MG/0.3 ML SYRINGE SUBCUT SCH (08:46)
[2018-04-24] MEDS: INSULIN REGULAR 100 UNIT/ML SUBCUT SCH ×4 (08:46→20:55)
[2018-04-24] MEDS: MEROPENEM 1,000 MG in SYRINGE 1 EACH IV SCH ×2 (08:46→22:18)
[2018-04-24] MEDS: FILGRASTIM-SNDZ 480 MCG/0.8 ML SYRINGE SUBCUT SCH (08:46)
[2018-04-24] MEDS: methylPREDNISolone SOD SUC 40 MG/1 ML VIAL IV SCH ×2 (08:47→22:19)
[2018-04-24] MEDS: ASPIRIN CHEW 81 MG TABLET PO SCH (08:47)
[2018-04-24] MEDS: METOPROLOL SUCCINATE XL 25 MG TABLET PO SCH (08:48)
[2018-04-24] MEDS: FEXOFENADINE 180 MG TABLET PO SCH (08:48)
[2018-04-24] MEDS: VORICONAZOLE 200 MG TABLET PO SCH ×2 (08:48→20:56)
[2018-04-24] MEDS: DOCUSATE SODIUM 100 MG CAPSULE PO SCH (08:48)
[2018-04-24] MEDS: ASCORBIC ACID 500 MG TABLET PO SCH ×2 (08:48→20:56)
[2018-04-24] MEDS: PANTOPRAZOLE 40 MG TABLET PO SCH (08:48)
[2018-04-24] MEDS: SODIUM POLYSTYRENE SULFATE 15 GM/60 ML BOTTLE PO SCH ×2 (08:48→20:56)
[2018-04-24] MEDS: MULTIVITAMIN (CENTRUM) TABLET PO SCH (08:48)
[2018-04-24] MEDS: FLUTICASONE 50 MCG NASAL SPRAY 16 GM BOTTLE BOTH NARES SCH (08:49)
[2018-04-24] MEDS: BUDESONIDE/FORMOTEROL 160-4.5 INHALER 6 GM INH SCH ×2 (08:49→20:56)
[2018-04-24] MEDS: DEXTROSE 5% NACL 0.45% 1,000 ML IV SCH (09:37)
[2018-04-25] MEDS: ONDANSETRON 4 MG/2 ML VIAL IV PRN (04:07)
[2018-04-25 05:42] LABS: Basophils # 0.2 10*3/uL (0.0-0.2); Basophils % 0.1 % (0.0-0.8); Hematocrit 35.9 VOL% (35.7-47.0); Immature Granulocytes % 0.5 %; Immature Granulocytes Absolute 0.68 #; Lymphocytes # 93.2 10*3/uL (1.4-4.0); Mean Corpuscular HGB Conc 30.6 GM/DL (32-36); Mean Corpuscular Hemoglobin 29 PG (27-34); Mean Platelet Volume 13.1 FL (9.6-12.0); Monocytes # 40.6 10*3/uL (0.11-0.8); Monocytes % 29.6 % (1.7-12.7); NRBC # 0.12 10*3/uL; Neutrophils # 2.4 10*3/uL (1.4-7.4); Neutrophils % 1.8 % (38.7-73.9); Platelet Count 110 T/CUMM (130-400); Red Blood Count 3.74 MC/CUMM (3.8-5.5); Red Cell Distribution Width 20.3 % (9.3-17.3)
[2018-04-25 06:00] LABS: Albumin 2.6 G/DL (3.4-5.0); Bilirubin,Total 0.8 MG/DL (0.2-1.0); Calcium 8.5 MG/DL (8.5-10.1); Osmolality,Calculated 311.7 MOS/KG (273-304); Potassium 4.6 MMOL/L (3.5-5.1); Total Protein 5.4 G/DL (6.4-8.3)
[2018-04-25 06:04] LABS: Atypical Lymphocytes Moderate; Hypochromasia 1+; Lymphocytes 86 % (20-55); Platelet Estimate Decreased; Segmented Neutrophils 3 % (50-85); Smudge Cells Moderate; Total Cells Counted 100
[2018-04-25 06:05] LABS: Microcytosis 1+
[2018-04-25] MEDS: ALBUTEROL/IPRATROPIUM 3 ML NEB RESP TX SCH ×2 (07:25→19:06)
[2018-04-25] MEDS: MEROPENEM 1,000 MG in SYRINGE 1 EACH IV SCH ×2 (10:19→21:55)
[2018-04-25] MEDS: methylPREDNISolone SOD SUC 40 MG/1 ML VIAL IV SCH ×2 (10:20→21:58)
[2018-04-25] MEDS: FEXOFENADINE 180 MG TABLET PO SCH (10:20)
[2018-04-25] MEDS: ASCORBIC ACID 500 MG TABLET PO SCH ×2 (10:21→21:52)
[2018-04-25] MEDS: METOPROLOL SUCCINATE XL 25 MG TABLET PO SCH (10:21)
[2018-04-25] MEDS: VORICONAZOLE 200 MG TABLET PO SCH ×2 (10:21→21:52)
[2018-04-25] MEDS: MULTIVITAMIN (CENTRUM) TABLET PO SCH (10:21)
[2018-04-25] MEDS: ASPIRIN CHEW 81 MG TABLET PO SCH (10:21)
[2018-04-25] MEDS: FILGRASTIM-SNDZ 480 MCG/0.8 ML SYRINGE SUBCUT SCH (10:21)
[2018-04-25] MEDS: DOCUSATE SODIUM 100 MG CAPSULE PO SCH (10:21)
[2018-04-25] MEDS: PANTOPRAZOLE 40 MG TABLET PO SCH (10:21)
[2018-04-25] MEDS: FLUTICASONE 50 MCG NASAL SPRAY 16 GM BOTTLE BOTH NARES SCH (10:22)
[2018-04-25] MEDS: SODIUM POLYSTYRENE SULFATE 15 GM/60 ML BOTTLE PO SCH ×2 (10:22→21:53)
[2018-04-25] MEDS: ENOXAPARIN 40 MG/0.4 ML SYRINGE SUBCUT SCH (10:22)
[2018-04-25] MEDS: INSULIN REGULAR 100 UNIT/ML SUBCUT SCH ×4 (10:22→22:00)
[2018-04-25] MEDS: BUDESONIDE/FORMOTEROL 160-4.5 INHALER 6 GM INH SCH ×2 (10:24→22:01)
[2018-04-26] MEDS: ALBUTEROL/IPRATROPIUM 3 ML NEB RESP TX SCH ×2 (08:00→19:43)
[2018-04-26] MEDS: INSULIN REGULAR 100 UNIT/ML SUBCUT SCH ×4 (08:11→22:13)
[2018-04-26 08:52] LABS: Basophils # 0.2 10*3/uL (0.0-0.2); Basophils % 0.1 % (0.0-0.8); Hematocrit 34.8 VOL% (35.7-47.0); Hemoglobin 10.7 GM/DL (12.0-16.0); Immature Granulocytes % 0.3 %; Immature Granulocytes Absolute 0.46 #; Lymphocytes # 99.4 10*3/uL (1.4-4.0); Lymphocytes % 71.6 % (21.3-54.2); Mean Corpuscular HGB Conc 30.7 GM/DL (32-36); Mean Corpuscular Hemoglobin 30 PG (27-34); Mean Corpuscular Volume 97.8 FL (87-102); Mean Platelet Volume 12.8 FL (9.6-12.0); Monocytes # 35.9 10*3/uL (0.11-0.8); Monocytes % 25.9 % (1.7-12.7); NRBC # 0.08 10*3/uL; Neutrophils # 2.9 10*3/uL (1.4-7.4); Neutrophils % 2.1 % (38.7-73.9); Platelet Count 93 T/CUMM (130-400); Red Blood Count 3.56 MC/CUMM (3.8-5.5); Red Cell Distribution Width 20.4 % (9.3-17.3)
[2018-04-26 08:53] LABS: White Blood Count 138.8 T/CUMM (4-12)
[2018-04-26] MEDS: ASPIRIN CHEW 81 MG TABLET PO SCH (09:04)
[2018-04-26] MEDS: SODIUM POLYSTYRENE SULFATE 15 GM/60 ML BOTTLE PO SCH ×2 (09:04→22:05)
[2018-04-26] MEDS: FEXOFENADINE 180 MG TABLET PO SCH (09:04)
[2018-04-26] MEDS: MULTIVITAMIN (CENTRUM) TABLET PO SCH (09:06)
[2018-04-26] MEDS: DOCUSATE SODIUM 100 MG CAPSULE PO SCH (09:07)
[2018-04-26] MEDS: PANTOPRAZOLE 40 MG TABLET PO SCH (09:07)
[2018-04-26] MEDS: VORICONAZOLE 200 MG TABLET PO SCH ×2 (09:08→22:04)
[2018-04-26] MEDS: METOPROLOL SUCCINATE XL 25 MG TABLET PO SCH (09:08)
[2018-04-26] MEDS: ASCORBIC ACID 500 MG TABLET PO SCH ×2 (09:09→22:04)
[2018-04-26] MEDS: FILGRASTIM-SNDZ 480 MCG/0.8 ML SYRINGE SUBCUT SCH (09:13)
[2018-04-26] MEDS: BUDESONIDE/FORMOTEROL 160-4.5 INHALER 6 GM INH SCH ×2 (09:14→22:12)
[2018-04-26] MEDS: FLUTICASONE 50 MCG NASAL SPRAY 16 GM BOTTLE BOTH NARES SCH (09:14)
[2018-04-26] MEDS: ENOXAPARIN 40 MG/0.4 ML SYRINGE SUBCUT SCH (09:16)
[2018-04-26 09:21] LABS: Albumin 2.6 G/DL (3.4-5.0); Bilirubin,Total 0.5 MG/DL (0.2-1.0); Calcium 8.7 MG/DL (8.5-10.1); Total Protein 5.4 G/DL (6.4-8.3)
[2018-04-26 09:22] LABS: Osmolality,Calculated 309.8 MOS/KG (273-304)
[2018-04-26 09:54] LABS: Atypical Lymphocytes Moderate; Band Neutrophils 1 % (0-10); Lymphocytes 87 % (20-55); Segmented Neutrophils 9 % (50-85); Total Cells Counted 100
[2018-04-26 09:55] LABS: Platelet Estimate Decreased; Smudge Cells Moderate
[2018-04-26] MEDS: MEROPENEM 1,000 MG in SYRINGE 1 EACH IV SCH ×2 (10:33→22:05)
[2018-04-26] MEDS: methylPREDNISolone SOD SUC 40 MG/1 ML VIAL IV SCH ×2 (10:34→22:09)
[2018-04-26] MEDS: DEXTROSE 5% NACL 0.45% 1,000 ML IV SCH (20:48)
[2018-04-27] MEDS: DEXTROSE 5% NACL 0.45% 1,000 ML IV SCH (03:50)
[2018-04-27 05:25] LABS: Basophils # 0.1 10*3/uL (0.0-0.2); Basophils % 0.1 % (0.0-0.8); Hematocrit 33.9 VOL% (35.7-47.0); Hemoglobin 10.3 GM/DL (12.0-16.0); Immature Granulocytes % 0.3 %; Immature Granulocytes Absolute 0.41 #; Lymphocytes # 89.3 10*3/uL (1.4-4.0); Lymphocytes % 64.6 % (21.3-54.2); Mean Corpuscular HGB Conc 30.4 GM/DL (32-36); Mean Corpuscular Hemoglobin 30 PG (27-34); Mean Corpuscular Volume 98.3 FL (87-102); Mean Platelet Volume 13.7 FL (9.6-12.0); Monocytes # 45.8 10*3/uL (0.11-0.8); Monocytes % 33.1 % (1.7-12.7); NRBC # 0.05 10*3/uL; Neutrophils # 2.6 10*3/uL (1.4-7.4); Neutrophils % 1.9 % (38.7-73.9); Platelet Count 92 T/CUMM (130-400); Red Blood Count 3.45 MC/CUMM (3.8-5.5); Red Cell Distribution Width 20.8 % (9.3-17.3)
[2018-04-27 05:30] LABS: White Blood Count 138.1 T/CUMM (4-12)
[2018-04-27 05:45] LABS: Hypochromasia Slight; Lymphocytes 93 % (20-55); Nucleated Red Blood Cells 1 (0-5); Platelet Estimate Decreased; Segmented Neutrophils 2 % (50-85); Smudge Cells Moderate; Total Cells Counted 100
[2018-04-27 06:27] LABS: Albumin 2.9 G/DL (3.4-5.0); Bilirubin,Total 1.5 MG/DL (0.2-1.0); Calcium 8.7 MG/DL (8.5-10.1); Osmolality,Calculated 311.8 MOS/KG (273-304); Potassium 4.5 MMOL/L (3.5-5.1); Total Protein 5.4 G/DL (6.4-8.3)
[2018-04-27] MEDS: ALBUTEROL/IPRATROPIUM 3 ML NEB RESP TX SCH ×2 (07:00→19:51)
[2018-04-27] MEDS: MULTIVITAMIN (CENTRUM) TABLET PO SCH (08:40)
[2018-04-27] MEDS: ASPIRIN CHEW 81 MG TABLET PO SCH (08:40)
[2018-04-27] MEDS: FEXOFENADINE 180 MG TABLET PO SCH (08:40)
[2018-04-27] MEDS: FLUTICASONE 50 MCG NASAL SPRAY 16 GM BOTTLE BOTH NARES SCH (08:41)
[2018-04-27] MEDS: DOCUSATE SODIUM 100 MG CAPSULE PO SCH (08:41)
[2018-04-27] MEDS: PANTOPRAZOLE 40 MG TABLET PO SCH (08:42)
[2018-04-27] MEDS: BUDESONIDE/FORMOTEROL 160-4.5 INHALER 6 GM INH SCH ×2 (08:42→21:03)
[2018-04-27] MEDS: VORICONAZOLE 200 MG TABLET PO SCH ×2 (08:43→21:02)
[2018-04-27] MEDS: ASCORBIC ACID 500 MG TABLET PO SCH ×2 (08:43→21:01)
[2018-04-27] MEDS: METOPROLOL SUCCINATE XL 25 MG TABLET PO SCH (08:43)
[2018-04-27] MEDS: INSULIN REGULAR 100 UNIT/ML SUBCUT SCH ×4 (08:44→21:02)
[2018-04-27] MEDS: FILGRASTIM-SNDZ 480 MCG/0.8 ML SYRINGE SUBCUT SCH (08:44)
[2018-04-27] MEDS: ENOXAPARIN 40 MG/0.4 ML SYRINGE SUBCUT SCH (08:45)
[2018-04-27] MEDS ORDERED: FUROSEMIDE 40 MG/4 ML VIAL IV ONE (11:39)
[2018-04-27] MEDS: methylPREDNISolone SOD SUC 40 MG/1 ML VIAL IV SCH ×2 (11:46→21:12)
[2018-04-27] MEDS: MEROPENEM 1,000 MG in SYRINGE 1 EACH IV SCH ×2 (11:49→21:02)
[2018-04-27] MEDS: ALPRAZolam 0.25 MG TABLET PO PRN (22:58)
[2018-04-27] MEDS: ACETAMINOPHEN 325 MG TABLET PO PRN (22:58)
[2018-04-28 06:23] LABS: Basophils # 0.1 10*3/uL (0.0-0.2); Hematocrit 36.9 VOL% (35.7-47.0); Hemoglobin 11.4 GM/DL (12.0-16.0); Immature Granulocytes % 0.5 %; Immature Granulocytes Absolute 1.03 #; Lymphocytes # 136.2 10*3/uL (1.4-4.0); Lymphocytes % 72.5 % (21.3-54.2); Mean Corpuscular HGB Conc 30.9 GM/DL (32-36); Mean Corpuscular Hemoglobin 30 PG (27-34); Mean Corpuscular Volume 98.1 FL (87-102); Mean Platelet Volume 13.7 FL (9.6-12.0); Monocytes # 47.7 10*3/uL (0.11-0.8); Monocytes % 25.4 % (1.7-12.7); NRBC # 0.12 10*3/uL; Neutrophils # 2.8 10*3/uL (1.4-7.4); Neutrophils % 1.6 % (38.7-73.9); Platelet Count 108 T/CUMM (130-400); Red Blood Count 3.76 MC/CUMM (3.8-5.5); Red Cell Distribution Width 21.1 % (9.3-17.3)
[2018-04-28 06:51] LABS: Albumin 3.1 G/DL (3.4-5.0); Calcium 9.1 MG/DL (8.5-10.1); Osmolality,Calculated 305.1 MOS/KG (273-304); Potassium 4.4 MMOL/L (3.5-5.1)
[2018-04-28 07:06] LABS: White Blood Count 187.8 T/CUMM (4-12)
[2018-04-28 08:02] LABS: Band Neutrophils 1 % (0-10); Lymphocytes 85 % (20-55); Segmented Neutrophils 2 % (50-85); Total Cells Counted 100
[2018-04-28 08:03] LABS: Atypical Lymphocytes Moderate; Hypochromasia 1+; Smudge Cells Moderate
[2018-04-28 08:04] LABS: Platelet Estimate Decreased
[2018-04-28] MEDS: ALBUTEROL/IPRATROPIUM 3 ML NEB RESP TX SCH ×2 (08:13→23:45)
[2018-04-28] MEDS: INSULIN REGULAR 100 UNIT/ML SUBCUT SCH ×4 (08:40→20:25)
[2018-04-28] MEDS: FILGRASTIM-SNDZ 480 MCG/0.8 ML SYRINGE SUBCUT SCH (08:41)
[2018-04-28] MEDS: ENOXAPARIN 40 MG/0.4 ML SYRINGE SUBCUT SCH (08:42)
[2018-04-28] MEDS: MEROPENEM 1,000 MG in SYRINGE 1 EACH IV SCH ×2 (08:43→20:26)
[2018-04-28] MEDS: methylPREDNISolone SOD SUC 40 MG/1 ML VIAL IV SCH ×2 (08:47→20:32)
[2018-04-28] MEDS: DOCUSATE SODIUM 100 MG CAPSULE PO SCH (08:52)
[2018-04-28] MEDS: ASPIRIN CHEW 81 MG TABLET PO SCH (08:52)
[2018-04-28] MEDS: METOPROLOL SUCCINATE XL 25 MG TABLET PO SCH (08:52)
[2018-04-28] MEDS: ASCORBIC ACID 500 MG TABLET PO SCH ×2 (08:53→20:24)
[2018-04-28] MEDS: VORICONAZOLE 200 MG TABLET PO SCH ×2 (08:54→20:24)
[2018-04-28] MEDS: FEXOFENADINE 180 MG TABLET PO SCH (08:54)
[2018-04-28] MEDS: MULTIVITAMIN (CENTRUM) TABLET PO SCH (08:55)
[2018-04-28] MEDS: PANTOPRAZOLE 40 MG TABLET PO SCH (08:55)
[2018-04-28] MEDS: BUDESONIDE/FORMOTEROL 160-4.5 INHALER 6 GM INH SCH ×2 (08:56→20:24)
[2018-04-28] MEDS: FLUTICASONE 50 MCG NASAL SPRAY 16 GM BOTTLE BOTH NARES SCH (08:57)
[2018-04-28] MEDS: ACETAMINOPHEN 325 MG TABLET PO PRN (21:04)
[2018-04-29] MEDS: ALBUTEROL/IPRATROPIUM 3 ML NEB RESP TX SCH ×2 (07:06→20:06)
[2018-04-29 07:38] LABS: Basophils # 0.2 10*3/uL (0.0-0.2); Basophils % 0.1 % (0.0-0.8); Hematocrit 35.8 VOL% (35.7-47.0); Hemoglobin 10.7 GM/DL (12.0-16.0); Immature Granulocytes % 0.3 %; Immature Granulocytes Absolute 0.46 #; Lymphocytes # 119.3 10*3/uL (1.4-4.0); Lymphocytes % 65.2 % (21.3-54.2); Mean Corpuscular HGB Conc 29.9 GM/DL (32-36); Mean Corpuscular Hemoglobin 30 PG (27-34); Mean Corpuscular Volume 100.6 FL (87-102); Mean Platelet Volume 13.5 FL (9.6-12.0); Monocytes # 60.7 10*3/uL (0.11-0.8); Monocytes % 33.2 % (1.7-12.7); NRBC # 0.11 10*3/uL; Neutrophils # 2.3 10*3/uL (1.4-7.4); Neutrophils % 1.2 % (38.7-73.9); Red Blood Count 3.56 MC/CUMM (3.8-5.5); Red Cell Distribution Width 21.2 % (9.3-17.3)
[2018-04-29 07:52] LABS: White Blood Count 182.9 T/CUMM (4-12)
[2018-04-29 07:53] LABS: Platelet Count 83 T/CUMM (130-400)
[2018-04-29 07:57] LABS: Albumin 2.8 G/DL (3.4-5.0); Bilirubin,Total 0.8 MG/DL (0.2-1.0); Calcium 9.3 MG/DL (8.5-10.1); Osmolality,Calculated 305.3 MOS/KG (273-304); Potassium 4.8 MMOL/L (3.5-5.1); Total Protein 5.8 G/DL (6.4-8.3)
[2018-04-29 08:27] LABS: Atypical Lymphocytes Moderate; Lymphocytes 89 % (20-55); Segmented Neutrophils 3 % (50-85); Total Cells Counted 100
[2018-04-29 08:28] LABS: Smudge Cells Moderate
[2018-04-29 08:29] LABS: Anisocytosis 1+; Hypochromasia 1+; Microcytosis 1+; Platelet Estimate Decreased
[2018-04-29] MEDS: HYDROcodone/CHLORPHENIRAMINE ER 5 ML UDCUP PO PRN (10:15)
[2018-04-29] MEDS: INSULIN REGULAR 100 UNIT/ML SUBCUT SCH ×4 (10:16→20:27)
[2018-04-29] MEDS: ENOXAPARIN 40 MG/0.4 ML SYRINGE SUBCUT SCH (10:21)
[2018-04-29] MEDS: FILGRASTIM-SNDZ 480 MCG/0.8 ML SYRINGE SUBCUT SCH (10:23)
[2018-04-29] MEDS: PANTOPRAZOLE 40 MG TABLET PO SCH (10:25)
[2018-04-29] MEDS: DOCUSATE SODIUM 100 MG CAPSULE PO SCH (10:25)
[2018-04-29] MEDS: methylPREDNISolone SOD SUC 40 MG/1 ML VIAL IV SCH ×2 (10:26→20:29)
[2018-04-29] MEDS: ASCORBIC ACID 500 MG TABLET PO SCH ×2 (10:30→20:27)
[2018-04-29] MEDS: MULTIVITAMIN (CENTRUM) TABLET PO SCH (10:30)
[2018-04-29] MEDS: VORICONAZOLE 200 MG TABLET PO SCH ×2 (10:31→20:27)
[2018-04-29] MEDS: METOPROLOL SUCCINATE XL 25 MG TABLET PO SCH (10:31)
[2018-04-29] MEDS: FEXOFENADINE 180 MG TABLET PO SCH (10:32)
[2018-04-29] MEDS: ASPIRIN CHEW 81 MG TABLET PO SCH (10:32)
[2018-04-29] MEDS: MEROPENEM 1,000 MG in SYRINGE 1 EACH IV SCH ×2 (10:34→20:29)
[2018-04-29] MEDS: BUDESONIDE/FORMOTEROL 160-4.5 INHALER 6 GM INH SCH ×2 (10:41→20:27)
[2018-04-29] MEDS: FLUTICASONE 50 MCG NASAL SPRAY 16 GM BOTTLE BOTH NARES SCH (10:43)
[2018-04-29] MEDS: ACETAMINOPHEN 325 MG TABLET PO PRN (21:56)
[2018-04-30 06:02] LABS: Basophils # 0.1 10*3/uL (0.0-0.2); Basophils % 0.1 % (0.0-0.8); Hematocrit 34.1 VOL% (35.7-47.0); Hemoglobin 10.1 GM/DL (12.0-16.0); Immature Granulocytes % 0.2 %; Immature Granulocytes Absolute 0.29 #; Lymphocytes # 97.9 10*3/uL (1.4-4.0); Lymphocytes % 67.9 % (21.3-54.2); Mean Corpuscular HGB Conc 29.6 GM/DL (32-36); Mean Corpuscular Hemoglobin 30 PG (27-34); Mean Corpuscular Volume 100.3 FL (87-102); Mean Platelet Volume 13.9 FL (9.6-12.0); Monocytes # 44.7 10*3/uL (0.11-0.8); NRBC # 0.06 10*3/uL; Neutrophils # 1.2 10*3/uL (1.4-7.4); Neutrophils % 0.8 % (38.7-73.9); Red Cell Distribution Width 20.9 % (9.3-17.3)
[2018-04-30 06:17] LABS: Bilirubin,Total 0.8 MG/DL (0.2-1.0); Calcium 9.2 MG/DL (8.5-10.1); Osmolality,Calculated 306.1 MOS/KG (273-304); Potassium 5.1 MMOL/L (3.5-5.1); Total Protein 5.6 G/DL (6.4-8.3)
[2018-04-30 06:21] LABS: Platelet Count 66 T/CUMM (130-400)
[2018-04-30 06:22] LABS: White Blood Count 144.2 T/CUMM (4-12)
[2018-04-30 06:30] LABS: Hypochromasia Slight; Lymphocytes 96 % (20-55); Ovalocytes Slight; Platelet Estimate Decreased; Total Cells Counted 100
[2018-04-30 06:31] LABS: Atypical Lymphocytes Moderate; Microcytosis Slight; Smudge Cells Moderate
[2018-04-30] MEDS: ALBUTEROL/IPRATROPIUM 3 ML NEB RESP TX SCH ×2 (07:44→18:50)
[2018-04-30] MEDS: INSULIN REGULAR 100 UNIT/ML SUBCUT SCH ×4 (09:18→21:33)
[2018-04-30] MEDS: ENOXAPARIN 40 MG/0.4 ML SYRINGE SUBCUT SCH (09:18)
[2018-04-30] MEDS: methylPREDNISolone SOD SUC 40 MG/1 ML VIAL IV SCH ×2 (09:19→21:36)
[2018-04-30] MEDS: ASPIRIN CHEW 81 MG TABLET PO SCH (09:19)
[2018-04-30] MEDS: MULTIVITAMIN (CENTRUM) TABLET PO SCH (09:19)
[2018-04-30] MEDS: PANTOPRAZOLE 40 MG TABLET PO SCH (09:19)
[2018-04-30] MEDS: METOPROLOL SUCCINATE XL 25 MG TABLET PO SCH (09:19)
[2018-04-30] MEDS: ASCORBIC ACID 500 MG TABLET PO SCH ×2 (09:19→21:32)
[2018-04-30] MEDS: DOCUSATE SODIUM 100 MG CAPSULE PO SCH (09:19)
[2018-04-30] MEDS: FEXOFENADINE 180 MG TABLET PO SCH (09:19)
[2018-04-30] MEDS: MEROPENEM 1,000 MG in SYRINGE 1 EACH IV SCH ×2 (09:20→21:33)
[2018-04-30] MEDS: BUDESONIDE/FORMOTEROL 160-4.5 INHALER 6 GM INH SCH ×2 (09:22→21:33)
[2018-04-30] MEDS: FLUTICASONE 50 MCG NASAL SPRAY 16 GM BOTTLE BOTH NARES SCH (09:22)
[2018-04-30] MEDS: FILGRASTIM-SNDZ 480 MCG/0.8 ML SYRINGE SUBCUT SCH (09:25)
[2018-04-30] MEDS: SODIUM PHOSPHATE ENEMA 133 ML BOTTLE RECTAL PRN (14:50)
[2018-04-30] MEDS: HYDROcodone/CHLORPHENIRAMINE ER 5 ML UDCUP PO PRN (15:29)
[2018-05-01] MEDS: ONDANSETRON 4 MG/2 ML VIAL IV PRN (03:52)
[2018-05-01] MEDS ORDERED: PROMETHAZINE INJ 12.5 MG in SODIUM CHLORIDE 0.9% 50 ML IV PRN (05:14)
[2018-05-01 05:22] LABS: Basophils # 0.1 10*3/uL (0.0-0.2); Basophils % 0.1 % (0.0-0.8); Hematocrit 35.9 VOL% (35.7-47.0); Hemoglobin 10.7 GM/DL (12.0-16.0); Immature Granulocytes % 0.2 %; Immature Granulocytes Absolute 0.33 #; Lymphocytes # 107.9 10*3/uL (1.4-4.0); Lymphocytes % 72.8 % (21.3-54.2); Mean Corpuscular HGB Conc 29.8 GM/DL (32-36); Mean Corpuscular Hemoglobin 30 PG (27-34); Mean Corpuscular Volume 101.4 FL (87-102); Monocytes # 39.2 10*3/uL (0.11-0.8); Monocytes % 26.4 % (1.7-12.7); NRBC # 0.06 10*3/uL; Neutrophils # 0.7 10*3/uL (1.4-7.4); Neutrophils % 0.5 % (38.7-73.9); Platelet Count 64 T/CUMM (130-400); Red Blood Count 3.54 MC/CUMM (3.8-5.5); Red Cell Distribution Width 21.1 % (9.3-17.3)
[2018-05-01 05:30] LABS: White Blood Count 148.3 T/CUMM (4-12)
[2018-05-01 05:50] LABS: Albumin 2.8 G/DL (3.4-5.0); Bilirubin,Total 1.1 MG/DL (0.2-1.0); Calcium 9.3 MG/DL (8.5-10.1); Osmolality,Calculated 302.3 MOS/KG (273-304); Potassium 5.1 MMOL/L (3.5-5.1); Total Protein 5.6 G/DL (6.4-8.3)
[2018-05-01 05:51] LABS: Atypical Lymphocytes 2+; Lymphocytes 95 % (20-55); Nucleated Red Blood Cells 1 (0-5); Platelet Estimate Decreased; Segmented Neutrophils 1 % (50-85); Total Cells Counted 100
[2018-05-01 05:52] LABS: Polychromasia Slight; Target Cells Slight
[2018-05-01] MEDS: ALBUTEROL/IPRATROPIUM 3 ML NEB RESP TX SCH ×2 (07:35→19:31)
[2018-05-01] MEDS: INSULIN REGULAR 100 UNIT/ML SUBCUT SCH ×4 (09:38→21:12)
[2018-05-01] MEDS: ENOXAPARIN 40 MG/0.4 ML SYRINGE SUBCUT SCH (09:38)
[2018-05-01] MEDS: FILGRASTIM-SNDZ 480 MCG/0.8 ML SYRINGE SUBCUT SCH (09:38)
[2018-05-01] MEDS: methylPREDNISolone SOD SUC 40 MG/1 ML VIAL IV SCH ×2 (09:39→21:17)
[2018-05-01] MEDS: MEROPENEM 1,000 MG in SYRINGE 1 EACH IV SCH ×2 (09:39→21:12)
[2018-05-01] MEDS: PANTOPRAZOLE 40 MG TABLET PO SCH (09:40)
[2018-05-01] MEDS: FEXOFENADINE 180 MG TABLET PO SCH (09:40)
[2018-05-01] MEDS: DOCUSATE SODIUM 100 MG CAPSULE PO SCH (09:40)
[2018-05-01] MEDS: MULTIVITAMIN (CENTRUM) TABLET PO SCH (09:40)
[2018-05-01] MEDS: ASPIRIN CHEW 81 MG TABLET PO SCH (09:40)
[2018-05-01] MEDS: METOPROLOL SUCCINATE XL 25 MG TABLET PO SCH (09:40)
[2018-05-01] MEDS: ASCORBIC ACID 500 MG TABLET PO SCH ×2 (09:40→21:12)
[2018-05-01] MEDS: BUDESONIDE/FORMOTEROL 160-4.5 INHALER 6 GM INH SCH ×2 (09:41→21:12)
[2018-05-01] MEDS: FLUTICASONE 50 MCG NASAL SPRAY 16 GM BOTTLE BOTH NARES SCH (09:41)
[2018-05-01] MEDS: SODIUM PHOSPHATE ENEMA 133 ML BOTTLE RECTAL PRN (18:32)
[2018-05-01] MEDS: HYDROcodone/CHLORPHENIRAMINE ER 5 ML UDCUP PO PRN (21:11)
[2018-05-02 05:50] LABS: Albumin 2.8 G/DL (3.4-5.0); Bilirubin,Total 1.2 MG/DL (0.2-1.0); Calcium 8.9 MG/DL (8.5-10.1); Total Protein 5.5 G/DL (6.4-8.3)
[2018-05-02 05:58] LABS: Basophils # 0.2 10*3/uL (0.0-0.2); Basophils % 0.1 % (0.0-0.8); Hematocrit 36.2 VOL% (35.7-47.0); Hemoglobin 10.7 GM/DL (12.0-16.0); Immature Granulocytes % 0.1 %; Immature Granulocytes Absolute 0.12 #; Lymphocytes # 142.7 10*3/uL (1.4-4.0); Lymphocytes % 81.5 % (21.3-54.2); Mean Corpuscular HGB Conc 29.6 GM/DL (32-36); Mean Corpuscular Hemoglobin 30 PG (27-34); Mean Corpuscular Volume 102.3 FL (87-102); Mean Platelet Volume 13.7 FL (9.6-12.0); Monocytes # 31.4 10*3/uL (0.11-0.8); Monocytes % 17.9 % (1.7-12.7); NRBC # 0.07 10*3/uL; Neutrophils # 0.7 10*3/uL (1.4-7.4); Neutrophils % 0.4 % (38.7-73.9); Platelet Count 73 T/CUMM (130-400); Red Blood Count 3.54 MC/CUMM (3.8-5.5); Red Cell Distribution Width 20.9 % (9.3-17.3)
[2018-05-02 06:07] LABS: Atypical Lymphocytes 2+; Lymphocytes 97 % (20-55); Platelet Estimate Decreased; Total Cells Counted 100
[2018-05-02 06:08] LABS: Polychromasia Slight; Target Cells Slight
[2018-05-02 06:39] LABS: Potassium 6.2 MMOL/L (3.5-5.1)
[2018-05-02] MEDS: ALBUTEROL/IPRATROPIUM 3 ML NEB RESP TX SCH ×2 (07:20→19:23)
[2018-05-02] MEDS: INSULIN REGULAR 100 UNIT/ML SUBCUT SCH ×4 (07:34→20:40)
[2018-05-02] MEDS ORDERED: SODIUM POLYSTYRENE SULFATE 15 GM/60 ML BOTTLE PO STA (07:41)
[2018-05-02] MEDS ORDERED: SORBITOL 30 ML BOTTLE PO SCH (09:00)
[2018-05-02] MEDS: PANTOPRAZOLE 40 MG TABLET PO SCH (09:49)
[2018-05-02] MEDS: ASPIRIN CHEW 81 MG TABLET PO SCH (09:49)
[2018-05-02] MEDS: METOPROLOL SUCCINATE XL 25 MG TABLET PO SCH (09:49)
[2018-05-02] MEDS: FEXOFENADINE 180 MG TABLET PO SCH (09:50)
[2018-05-02] MEDS: DOCUSATE SODIUM 100 MG CAPSULE PO SCH (09:50)
[2018-05-02] MEDS: ASCORBIC ACID 500 MG TABLET PO SCH ×2 (09:51→20:35)
[2018-05-02] MEDS: MULTIVITAMIN (CENTRUM) TABLET PO SCH (09:52)
[2018-05-02] MEDS: HYDROcodone/CHLORPHENIRAMINE ER 5 ML UDCUP PO PRN ×2 (09:54→20:35)
[2018-05-02] MEDS: BUDESONIDE/FORMOTEROL 160-4.5 INHALER 6 GM INH SCH ×2 (09:55→23:27)
[2018-05-02] MEDS: FLUTICASONE 50 MCG NASAL SPRAY 16 GM BOTTLE BOTH NARES SCH (09:56)
[2018-05-02] MEDS: FILGRASTIM-SNDZ 480 MCG/0.8 ML SYRINGE SUBCUT SCH (09:57)
[2018-05-02] MEDS: ENOXAPARIN 40 MG/0.4 ML SYRINGE SUBCUT SCH (09:58)
[2018-05-02] MEDS: methylPREDNISolone SOD SUC 40 MG/1 ML VIAL IV SCH ×2 (10:02→20:36)
[2018-05-02] MEDS: LEVOFLOXACIN INJ 750 MG in PREMIX 1 EACH IV SCH (10:02)
[2018-05-02] MEDS: SODIUM POLYSTYRENE SULFATE 15 GM/60 ML BOTTLE PO SCH (10:06)
[2018-05-02] MEDS: ALPRAZolam 0.25 MG TABLET PO PRN (23:27)
[2018-05-03] MEDS: ONDANSETRON 4 MG/2 ML VIAL IV PRN (06:24)
[2018-05-03 06:48] LABS: Basophils # 0.1 10*3/uL (0.0-0.2); Basophils % 0.1 % (0.0-0.8); Hematocrit 31.6 VOL% (35.7-47.0); Hemoglobin 9.3 GM/DL (12.0-16.0); Immature Granulocytes % 0.1 %; Immature Granulocytes Absolute 0.11 #; Lymphocytes # 88.3 10*3/uL (1.4-4.0); Mean Corpuscular HGB Conc 29.4 GM/DL (32-36); Mean Corpuscular Hemoglobin 30 PG (27-34); Mean Corpuscular Volume 102.3 FL (87-102); Mean Platelet Volume 13.3 FL (9.6-12.0); Monocytes # 30.6 10*3/uL (0.11-0.8); Monocytes % 25.6 % (1.7-12.7); NRBC # 0.03 10*3/uL; Neutrophils # 0.3 10*3/uL (1.4-7.4); Neutrophils % 0.2 % (38.7-73.9); Platelet Count 58 T/CUMM (130-400); Red Blood Count 3.09 MC/CUMM (3.8-5.5)
[2018-05-03] MEDS: ALBUTEROL/IPRATROPIUM 3 ML NEB RESP TX SCH ×2 (06:52→19:19)
[2018-05-03 06:54] LABS: White Blood Count 119.3 T/CUMM (4-12)
[2018-05-03 07:22] LABS: Albumin 2.6 G/DL (3.4-5.0); Bilirubin,Total 0.7 MG/DL (0.2-1.0); Calcium 8.8 MG/DL (8.5-10.1); Osmolality,Calculated 294.8 MOS/KG (273-304); Potassium 5.5 MMOL/L (3.5-5.1); Total Protein 5.3 G/DL (6.4-8.3)
[2018-05-03 07:23] LABS: Atypical Lymphocytes Moderate; Lymphocytes 96 % (20-55); Total Cells Counted 100
[2018-05-03 07:24] LABS: Hypochromasia 1+; Smudge Cells Few
[2018-05-03 07:25] LABS: Macrocytosis 1+; Platelet Estimate Decreased
[2018-05-03] MEDS: SODIUM POLYSTYRENE SULFATE 15 GM/60 ML BOTTLE PO SCH (09:07)
[2018-05-03] MEDS: DOCUSATE SODIUM 100 MG CAPSULE PO SCH (09:18)
[2018-05-03] MEDS: METOPROLOL SUCCINATE XL 25 MG TABLET PO SCH (09:18)
[2018-05-03] MEDS: PANTOPRAZOLE 40 MG TABLET PO SCH (09:18)
[2018-05-03] MEDS: FEXOFENADINE 180 MG TABLET PO SCH (09:19)
[2018-05-03] MEDS: ASCORBIC ACID 500 MG TABLET PO SCH ×2 (09:19→21:42)
[2018-05-03] MEDS: ASPIRIN CHEW 81 MG TABLET PO SCH (09:20)
[2018-05-03] MEDS: MULTIVITAMIN (CENTRUM) TABLET PO SCH (09:22)
[2018-05-03] MEDS: HYDROcodone/CHLORPHENIRAMINE ER 5 ML UDCUP PO PRN ×2 (09:24→21:51)
[2018-05-03] MEDS: INSULIN REGULAR 100 UNIT/ML SUBCUT SCH ×4 (09:24→21:45)
[2018-05-03] MEDS: FILGRASTIM-SNDZ 480 MCG/0.8 ML SYRINGE SUBCUT SCH (09:25)
[2018-05-03] MEDS: ENOXAPARIN 40 MG/0.4 ML SYRINGE SUBCUT SCH (09:26)
[2018-05-03] MEDS: BUDESONIDE/FORMOTEROL 160-4.5 INHALER 6 GM INH SCH ×2 (09:27→21:45)
[2018-05-03] MEDS: FLUTICASONE 50 MCG NASAL SPRAY 16 GM BOTTLE BOTH NARES SCH (09:28)
[2018-05-03] MEDS: methylPREDNISolone SOD SUC 40 MG/1 ML VIAL IV SCH ×2 (09:30→21:48)
[2018-05-03] MEDS: LEVOFLOXACIN INJ 750 MG in PREMIX 1 EACH IV SCH (09:30)
[2018-05-03] MEDS: chlorproMAZINE INJ 50 MG in SODIUM CHLORIDE 0.9% 100 ML IV SCH (21:46)
[2018-05-04] MEDS: METOPROLOL SUCCINATE XL 25 MG TABLET PO SCH (08:17)
[2018-05-04] MEDS: ASPIRIN CHEW 81 MG TABLET PO SCH (08:18)
[2018-05-04] MEDS: PANTOPRAZOLE 40 MG TABLET PO SCH (08:18)
[2018-05-04] MEDS: DOCUSATE SODIUM 100 MG CAPSULE PO SCH (08:19)
[2018-05-04] MEDS: FEXOFENADINE 180 MG TABLET PO SCH (08:20)
[2018-05-04] MEDS: MULTIVITAMIN (CENTRUM) TABLET PO SCH (08:20)
[2018-05-04] MEDS: ENOXAPARIN 40 MG/0.4 ML SYRINGE SUBCUT SCH (08:23)
[2018-05-04] MEDS: FILGRASTIM-SNDZ 480 MCG/0.8 ML SYRINGE SUBCUT SCH (08:24)
[2018-05-04] MEDS: FLUTICASONE 50 MCG NASAL SPRAY 16 GM BOTTLE BOTH NARES SCH (08:26)
[2018-05-04] MEDS: BUDESONIDE/FORMOTEROL 160-4.5 INHALER 6 GM INH SCH ×2 (08:27→21:14)
[2018-05-04] MEDS: ALBUTEROL/IPRATROPIUM 3 ML NEB RESP TX SCH ×2 (08:40→19:09)
[2018-05-04] MEDS: INSULIN REGULAR 100 UNIT/ML SUBCUT SCH ×4 (08:50→20:55)
[2018-05-04] MEDS: methylPREDNISolone SOD SUC 40 MG/1 ML VIAL IV SCH ×2 (08:50→20:56)
[2018-05-04] MEDS: LEVOFLOXACIN INJ 750 MG in PREMIX 1 EACH IV SCH (08:51)
[2018-05-04] MEDS ORDERED: FUROSEMIDE 40 MG/4 ML VIAL IV ONE (09:01)
[2018-05-04] MEDS: SODIUM POLYSTYRENE SULFATE 15 GM/60 ML BOTTLE PO SCH (09:20)
[2018-05-04] MEDS: ASCORBIC ACID 500 MG TABLET PO SCH ×2 (09:20→21:14)
[2018-05-04] MEDS: HYDROcodone/CHLORPHENIRAMINE ER 5 ML UDCUP PO PRN ×2 (12:19→17:33)
[2018-05-04] MEDS: ALBUTEROL/IPRATROPIUM 3 ML NEB RESP TX PRN (15:30)
[2018-05-04] MEDS: MORPHINE 4 MG/1 ML VIAL IV PRN ×2 (15:49→20:59)
[2018-05-04] MEDS: chlorproMAZINE INJ 50 MG in SODIUM CHLORIDE 0.9% 100 ML IV SCH (21:12)
[2018-05-05] MEDS: MORPHINE 4 MG/1 ML VIAL IV PRN ×9 (01:46→23:19)
[2018-05-05] MEDS: ALBUTEROL/IPRATROPIUM 3 ML NEB RESP TX SCH (07:25)
[2018-05-05 08:28] VITALS: BP 169/80
[2018-05-05] MEDS: INSULIN REGULAR 100 UNIT/ML SUBCUT SCH (10:15)
[2018-05-05] MEDS: chlorproMAZINE INJ 50 MG in SODIUM CHLORIDE 0.9% 100 ML IV SCH (20:28)
[2018-05-06] MEDS: MORPHINE 4 MG/1 ML VIAL IV PRN ×2 (01:14→08:47)
== END 2018-05-06 11:00 | disposition expired | DRG 177 ==
LOC: N.ED 09:50 → N.EDINP 12:36 → N.TELEN 13:22 → N.4E 04-17 12:04
PROVIDERS: ADMIT Specialist; ATTEND Specialist